=== PATIENT | male | born 1945 | race Hispanic/Latino ===

== ENCOUNTER 2016-10-27 18:49 | Inpatient (IN) | payer MEDICARE, OTHER ==
[2016-10-27 19:45] LABS: ADD MANUAL DIFF? NO
[2016-10-27 19:51] LABS: BASO # 0.02 K/mm3 (0.0-2.0); BASO % 0.3 % (0.0-3.0); EOS # 0.1 (0.0-0.7); EOS % 0.9 % (1.5-5.0); GRAN # 4.37 (1.4-6.5); HEMATOCRIT 42.4 % (42.0-52.0); LYMPH # 1.6 (1.2-3.4); LYMPH % 24.5 % (22.0-35.0); MEAN CELL VOLUME 95.1 fL (80.0-105.0); MEAN CORPUSCULAR HGB CONC 34.7 g/dl (31.0-37.0); MEAN PLATELET VOLUME 10.4 fl (7.0-11.0); MONO # 0.6 (0.1-0.6); MONO % 8.3 % (1.0-6.0); PLATELET COUNT 249 10^3/uL (120.0-450.0); RED CELL DISTRIBUTION WIDTH 13.2 % (11.5-14.5); URINE BILIRUBIN NEGATIVE (NEGATIVE); URINE BLOOD SMALL (NEGATIVE); URINE GLUCOSE (UA) NEGATIVE (NEGATIVE); URINE KETONE NEGATIVE (NEGATIVE); URINE LEUKOCYTE ESTERASE NEGATIVE Leu/uL (NEGATIVE); URINE PROTEIN TRACE mg/dL (<30 mg/dL); URINE UROBILINOGEN 0.2 E.U./dL (<1 E.U./dL); WHITE BLOOD COUNT 6.6 10^3/ul (4.5-11.0)
[2016-10-27 19:56] LABS: URINE APPEARANCE SL CLOUDY (CLEAR); URINE COLOR YELLOW (YELLOW)
[2016-10-27 20:04] LABS: ALB/GLOB RATIO 1.2 (1.1-1.8); ALKALINE PHOSPHATASE 71 U/L (38-133); ALT/SGPT 30 U/L (7-56); AST/SGOT 38 U/L (15-59); BILIRUBIN,TOTAL 0.6 mg/dL (0.2-1.3); BLOOD UREA NITROGEN 12 mg/dL (7-21); CALCIUM 9.3 mg/dL (8.4-10.5); CARBON DIOXIDE 24 mmol/L (21-33); CHLORIDE 100 mmol/L (95-110); GFR AFRICAN-AMERICAN > 60; GLUCOSE,RANDOM 101 mg/dL (70-110); SODIUM 139 mmol/L (132-148); TOTAL PROTEIN 8.1 g/dL (5.8-8.3)
[2016-10-27 20:25] LABS: URINE BACTERIA RARE (NEG); URINE EPITHELIAL CELLS 0 - 2 /hpf (0-5); URINE WBC NEGATIVE /hpf (0-6)
--- NOTE | 2016-10-27 20:47 | ED PDOC ---
Arrival/HPI - General Chief Complaint: Alcohol Ingestion Time Seen by Provider: 10/27/16 19:14 Historian: Patient - History of Present Illness Narrative History of Present Illness (Text): 10/27/16 20:43 70yo male BIBA for alcohol intoxication and psych evaluation. Per triage note, pt's family member reports chronic alcohol consumption and expression of suicidal ideation since patient lost his job. In ED patient admits drinking 3bottles of beer. States he came to ED because he tripped and fell in front of his house. Denies hitting his head anywhere. Denies LOC. He denies SI/HI. States he have a job to go to tomorrow. Denies any other somatic complaint. Past Medical History - Provider Review Nursing Documentation Reviewed: Yes - Psychiatric Hx Substance Use: No Family/Social History - Physician Review Nursing Documentation Reviewed: Yes Family/Social History: Unknown Family HX Smoking Status: Never Smoked Hx Alcohol Use: Yes Hx Substance Use: No Allergies/Home Meds Allergies/Adverse Reactions: Allergies No Known Allergies Allergy (Verified 10/27/16 18:58) Home Medications: Home Meds Medication Instructions Recorded Confirmed No Known Home Med 08/07/16 10/27/16 Review of Systems - Physician Review All systems were reviewed & negative as marked: Yes - Review of Systems Systems not reviewed;Unavailable: Intoxicated Constitutional: Normal Eyes: Normal ENT: Normal Respiratory: Normal Cardiovascular: Normal Gastrointestinal: Normal Genitourinary Male: Normal Musculoskeletal: Normal Skin: Normal Neurological: Normal Endocrine: Normal Hemo/Lymphatic: Normal Psychiatric: Normal Physical Exam Vital Signs Reviewed: Yes Vital Signs Temp Pulse Resp BP Pulse Ox 10/28/16 00:37 98.2 F 95 H 20 141/80 98 10/27/16 21:27 98 F 90 20 132/80 100 10/27/16 19:16 98 F 95 H 20 129/88 100 Temperature: Afebrile Blood Pressure: Normal Pulse: Regular Respiratory Rate: Normal Appearance: Positive for: Well-Appearing, Non-Toxic, Comfortable, Other ( Alcohol breathe) Pain Distress: None Mental Status: Positive for: Alert and Oriented X 3, Confused - Systems Exam Head: Present: Atraumatic, Normocephalic Pupils: Present: PERRL Extroacular Muscles: Present: EOMI Conjunctiva: Present: Normal Mouth: Present: Moist Mucous Membranes Neck: Present: Normal Range of Motion Respiratory/Chest: Present: Clear to Auscultation, Good Air Exchange. No: Respiratory Distress, Accessory Muscle Use Cardiovascular: Present: Regular Rate and Rhythm, Normal S1, S2. No: Murmurs Abdomen: Present: Normal Bowel Sounds. No: Tenderness, Distention, Peritoneal Signs Back: Present: Normal Inspection Upper Extremity: Present: Normal Inspection. No: Cyanosis, Edema Lower Extremity: Present: Normal Inspection. No: Edema Neurological: Present: GCS=15, CN II-XII Intact, Speech Normal Skin: Present: Warm, Dry, Normal Color. No: Rashes Psychiatric: Present: Alert, Oriented x 3, Normal Insight, Normal Concentration Medical Decision Making ED Course and Treatment: 10/27/16 23:50 PT was bib EMS for stated history. He reports trauma in ED . He appear confused but answering questions. he is neurological intact in ED Lab was unremarkable. Alcohol level is [address] IMPRESSION: - Large area of edema in the right cerebral hemisphere, highly suspicious for vasogenic edema secondary to an underlying right intracranial mass or masses. There is a suspected large 6.3 cm mass in the right temporal lobe, and a possible additional mass in the right posterior frontal lobe (versus extension of the large right temporal mass). There is significant associated mass effect, including 9 mm midline shift to the left, right ventricular effacement , and right basilar cistern effacement. MRI of the brain with gadolinium is recommended for further evaluation. - No definite acute intracranial hemorrhage. - See above for remaining findings. Decadron was ordered Pt will be admitted Result and plan was DW the pt and he agreed. PES screener saw patient in ED, but patient could not be cleared for psych secondary to above CT finding. CAse was YOVANA Harper who saw pt in ED and accepted pt. case was also Amaury YEN Dr, Neurosurgeon. He recommended elevation of the bed head to 35degerre and continuation of Decadron. states he will see pt in the morning. Case was also YOVANA Randall and he saw pt in ED and accepted him to the ICU. - Lab Interpretations Lab Results: 10/27/16 19:29 10/27/16 19:29 Lab Results 10/27/16 19:29: WBC 6.6 D, RBC 4.46, Hgb 14.7, Hct 42.4, MCV 95.1, MCH 33.0, MCHC 34.7, RDW 13.2, Plt Count 249, MPV 10.4, Gran % 66.0, Lymph % (Auto) 24.5, [place] % (Auto) 8.3 H, Eos % (Auto) 0.9 L, Baso % (Auto) 0.3, Gran # 4.37, Lymph # 1.6, [place] # 0.6, Eos # 0.1, Baso # 0.02, Sodium 139, Potassium 4.0, Chloride 100, Carbon Dioxide 24, Anion Gap 19, BUN 12, Creatinine 0.8, Est GFR ( Amer) > 60, Est GFR (Non-Af Amer) > 60, Random Glucose 101, Calcium 9.3, Total Bilirubin 0.6, AST 38, ALT 30, Alkaline Phosphatase 71, Total Protein 8.1, Albumin 4.4, Globulin 3.7, Albumin/Globulin Ratio 1.2, Urine Color Yellow, Urine Appearance Sl cloudy, Urine pH 6.0, Ur Specific [place] 1.010, Urine Protein Trace H, Urine Glucose (UA) Negative, Urine Ketones Negative, Urine Blood Small H, Urine Nitrate Negative, Urine Bilirubin Negative, Urine Urobilinogen 0.2, Ur Leukocyte Esterase Negative, Urine RBC 2 - 5, Urine WBC Negative, Ur Epithelial Cells 0 - 2, Urine Bacteria Rare, Salicylates < 1 L, Urine Opiates Screen Negative, Urine Methadone Screen Negative, Acetaminophen < 10.0 L, Ur Barbiturates Screen Negative, Ur Phencyclidine Scrn Negative, Ur Amphetamines Screen Negative, U Benzodiazepines Scrn Negative, U Oth Cocaine Metabols Negative, U Cannabinoids Screen Negative, Alcohol, Quantitative 147 H - RAD Interpretation Radiology Orders: 10/27/16 19:15 CHEST PORTABLE [RAD] Stat 10/27/16 20:47 HEAD W/O CONTRAST [CT] Stat - Medication Orders Current Medication Orders: Dexamethasone (Decadron Inj) 6 mg IVP Q6H DIA Lorazepam (Ativan) 2 mg IVP Q2H PRN; Protocol PRN Reason: Symptoms of alcohol withdrawl Pantoprazole Sodium (Protonix Inj) 40 mg IVP DAILY DIA Discontinued Medications Chlordiazepoxide (Librium) 50 mg PO STAT STA PRN Reason: Protocol Stop: 10/28/16 00:03 Last Admin: 10/28/16 00:29 Dose: 50 MG Behavioural Document 10/28/16 00:29 R (Rec: 10/28/16 00:29 [place] [id number]) Maintenance Maintenance Dose No Nonmedicinal Nonmedicinal Interventions Activity Behavior Behavior for Medication: Anxiety Dexamethasone (Decadron Inj) 10 mg IM STAT STA Stop: 10/27/16 23:24 Last Admin: 10/28/16 00:27 Dose: 10 MG IM Administration Charges Document 10/28/16 00:27 R (Rec: 10/28/16 00:27 [place] [id number]) Injection Site MAR Injection Site Left Deltoid Charges for Administration # of IM Administrations 1 Multivitamins/Vitamin C 10 ml/Thiamine HCl 100 mg/ Folic Acid 1 mg/ Sodium Chloride 1,011.2 mls @ 1,000 mls/hr IV .Q1H1M ONE Stop: 10/28/16 00:50 Last Admin: 10/28/16 00:28 Dose: 1,000 MLS/HR eMAR Start Stop Document 10/28/16 00:28 RJR (Rec: 10/28/16 00:29 [place] [id number]) Intravenous Solution Start Date 10/28/16 Start Time 00:28 End Date 10/28/16 End time 01:28 Total Infusion Time 60 Lorazepam (Ativan) 2 mg IVP ONCE ONE PRN Reason: Protocol Stop: 10/27/16 23:51 Last Admin: 10/28/16 00:27 Dose: 2 MG Behavioural Document 10/28/16 00:27 RJR (Rec: 10/28/16 00:28 [place] [id number]) Maintenance Maintenance Dose No Nonmedicinal Nonmedicinal Interventions Activity Behavior Behavior for Medication: Anxiety IVP Administration Document 10/28/16 00:27 R (Rec: 10/28/16 00:28 [place] [id number]) Charges for Administration # of IVP Administrations 1 Disposition/Present on Arrival - Present on Arrival Any Indicators Present on Arrival: No History of DVT/PE: No History of Uncontrolled Diabetes: No Urinary Catheter: No History of Decub. Ulcer: No History Surgical Site Infection Following: None - Disposition Have Diagnosis and Disposition been Completed?: Yes Diagnosis: Brain mass, Alcohol abuse Disposition: HOSPITALIZED Disposition Time: 23:45 Patient Problems: Current Active Problems Problem Status Diagnosed Alcohol abuse Acute Brain mass Acute Condition: GUARDED
--- NOTE | 2016-10-27 22:33 | CT ---
EXAM: CT Head Without Intravenous Contrast. CLINICAL HISTORY: 70 years old, male; Injury or trauma; Fall; Initial encounter; Blunt trauma (contusions or hematomas); Consciousness not specified; Injury details: ETOH; Additional info: Head injury TECHNIQUE: Axial computed tomography images of the head/brain without intravenous contrast. This CT exam was performed using one or more of the following dose reduction techniques: automated exposure control, adjustment of the mA and/or kV according to patient size, and/or use of iterative reconstruction technique. EXAM DATE/TIME: 10/27/2016 8:47 PM COMPARISON: Prior head CT of 08/01/2016 FINDINGS: BRAIN: Large area of abnormal low density in the right cerebral hemisphere, highly suspicious for extensive edema. This involves the right temporal, posterior frontal, and parietal lobes, and has an appearance highly suggestive of vasogenic edema secondary to an underlying right-sided intracranial mass or masses. There is a suspected large mass in the right temporal lobe, image 26/series 2, measuring approximately 6.3 x 4.4 cm. There may be an additional mass (versus extension of the large right temporal mass) in the right posterior frontal lobe, image 36/series 2, measuring about 4.7 x 3.0 cm. There is significant associated intracranial mass effect. There is midline shift to the left of about 9 mm, at the level of the thalami, effacement of the basilar cisterns on the right, effacement and displacement of the right lateral ventricle, and diffuse sulcal effacement in the right cerebral hemisphere. No evidence of associated acute intracranial hemorrhage. No acute extra-axial fluid collections visualized. VENTRICLES: No evidence of significant hydrocephalus. BONES/JOINTS: No acute fractures or other acute bony abnormality noted. SOFT TISSUES: No acute abnormality of the visualized soft tissues is seen. SINUSES: Visualized paranasal sinuses appear clear. MASTOID AIR CELLS: Mastoid air cells appear clear. IMPRESSION: - Large area of edema in the right cerebral hemisphere, highly suspicious for vasogenic edema secondary to an underlying right intracranial mass or masses. There is a suspected large 6.3 cm mass in the right temporal lobe, and a possible additional mass in the right posterior frontal lobe (versus extension of the large right temporal mass). There is significant associated mass effect, including 9 mm midline shift to the left, right ventricular effacement, and right basilar cistern effacement. MRI of the brain with gadolinium is recommended for further evaluation. - No definite acute intracranial hemorrhage. - See above for remaining findings.
[2016-10-27] MEDS ORDERED: Multivitamin (MVI) 10 ML, Thiamine 100 MG, Folic Acid 1 MG in Sodium Chloride 0.9% 1,00... IV ONE (23:50)
--- NOTE | 2016-10-28 00:36 | CP.PCM.CON ---
<Honorio Pickering - Last Filed: 10/28/16 01:34> History of Present Illness - History of Present Illness History of Present Illness: ICU Consult - Honorio Hernándezgita PGY1 HPI: Patient is a 70yo male with past medical history of chronic ETOH abuse that presented via EMS s/p fall in his apartment building. Patient reported that he was out drinking prior to presentation (reportedly 3 beers) and upon arrival home had slipped and fell. He denied loss of consciousness or hitting his head. He reported that someone in the building had called the ambulance for him. Per ED staff, EMS had reported that he expressed suicidal ideation. On arrival to the ED, patient had a CT head without contrast done which revealed a large area of edema in the right cerebral hemisphere, suspected 6.3cm mass in the right temporal lobe, possible additional mass in the right posterior frontal lobe and significant mass effect with 9mm midline shift to the left. Patient denied chest pain, palpitations, SOB, abdominal pain, nausea, vomiting, focal weakness, numbness, tingling, visual changes, headaches, fever, chills, cough. 12point ROS as per HPI, otherwise negative PMHx: ETOH abuse PSHx: Denies prior surgeries Hospitalizations: Denies prior hospitalizations Family Hx: Father: Parkinson's Disease; Mother: Denies Allergies: NKDA Medications: Denies Social Hx: admits to frequent alcohol use, former smoker, denies illicit drug use Past Patient History - Past Social History Smoking Status: Never Smoked - CARDIAC Hx Cardiac Disorders: No Hx Hypertension: No - PULMONARY Hx Tuberculosis: No - NEUROLOGICAL HX Cerebrovascular Accident: No Hx Seizures: No - HEMATOLOGICAL/ONCOLOGICAL Hx Cancer: No Hx Human Immunodeficiency Virus (HIV): No - GENITOURINARY/GYNECOLOGICAL Hx Sexually Transmitted Disorders: No - PSYCHIATRIC Hx Substance Use: No - SURGICAL HISTORY Hx Surgeries: No Meds Allergies/Adverse Reactions: Allergies Allergy/AdvReac Type Severity Reaction Status Date / Time No Known Allergies Allergy Verified 10/27/16 18:58 - Medications Medications: Current Medications Multivitamins/Vitamin C 10 ml/Thiamine HCl 100 mg/ Folic Acid 1 mg/ Sodium Chloride 1,011.2 mls @ 1,000 mls/hr IV .Q1H1M ONE Stop: 10/28/16 00:50 Physical Exam - Constitutional Appears: No Acute Distress, Unkempt - Head Exam Head Exam: ATRAUMATIC, NORMAL INSPECTION, NORMOCEPHALIC - Eye Exam Eye Exam: EOMI, Normal appearance, PERRL. absent: Conjunctival injection, Nystagmus, Scleral icterus - ENT Exam ENT Exam: Mucous Membranes Moist - Neck Exam Neck exam: Positive for: Normal Inspection. Negative for: Lymphadenopathy, Tenderness, Thyromegaly - Respiratory Exam Respiratory Exam: Clear to Auscultation Bilateral. absent: Rales, Rhonchi, Wheezes - Cardiovascular Exam Cardiovascular Exam: RRR, +S1, +S2. absent: Diastolic murmur, Gallop, JVD, Rubs , Systolic Murmur - GI/Abdominal Exam GI & Abdominal Exam: Normal Bowel Sounds, Soft. absent: Distended, Guarding, Rebound, Rigid, Tenderness - Neurological Exam Neurological exam: Alert, CN II-XII Intact, Oriented x3, Reflexes Normal Additional comments: motor strength 5/5 in bilateral upper and lower extremities CNII-XII intact EOMI, PERRLA - Psychiatric Exam Psychiatric exam: Anxious Additional comments: denies suicidal and homicidal ideation - Skin Skin Exam: Dry, Intact, Normal Color, Warm Results - Vital Signs Recent Vital Signs: Last Vital Signs Temp 98 F 10/27/16 21:27 Pulse 90 10/27/16 21:27 Resp 20 10/27/16 21:27 BP 132/80 10/27/16 21:27 Pulse Ox 100 10/27/16 21:27 - Labs Result Diagrams: 10/27/16 19:29 10/27/16 19:29 Labs: Laboratory Results - last 24 hr 10/27/16 19:29 WBC 6.6 D RBC 4.46 Hgb 14.7 Hct 42.4 MCV 95.1 MCH 33.0 MCHC 34.7 RDW 13.2 Plt Count 249 MPV 10.4 Gran % 66.0 Lymph % (Auto) 24.5 [place] % (Auto) 8.3 H Eos % (Auto) 0.9 L Baso % (Auto) 0.3 Gran # 4.37 Lymph # 1.6 [place] # 0.6 Eos # 0.1 Baso # 0.02 Sodium 139 Potassium 4.0 Chloride 100 Carbon Dioxide 24 Anion Gap 19 BUN 12 Creatinine 0.8 Est GFR ( Amer) > 60 Est GFR (Non-Af Amer) > 60 Random Glucose 101 Calcium 9.3 Total Bilirubin 0.6 AST 38 ALT 30 Alkaline Phosphatase 71 Total Protein 8.1 Albumin 4.4 Globulin 3.7 Albumin/Globulin Ratio 1.2 Urine Color Yellow Urine Appearance Sl cloudy Urine pH 6.0 Ur Specific [place] 1.010 Urine Protein Trace H Urine Glucose (UA) Negative Urine Ketones Negative Urine Blood Small H Urine Nitrate Negative Urine Bilirubin Negative Urine Urobilinogen 0.2 Ur Leukocyte Esterase Negative Urine RBC 2 - 5 Urine WBC Negative Ur Epithelial Cells 0 - 2 Urine Bacteria Rare Salicylates < 1 L Urine Opiates Screen Negative Urine Methadone Screen Negative Acetaminophen < 10.0 L Ur Barbiturates Screen Negative Ur Phencyclidine Scrn Negative Ur Amphetamines Screen Negative U Benzodiazepines Scrn Negative U Oth Cocaine Metabols Negative U Cannabinoids Screen Negative Alcohol, Quantitative 147 H Assessment & Plan - Assessment and Plan (Free Text) Assessment: 70yo male with history of chronic alcohol abuse presents s/p slip and fall at home. CT head revealed large 6.8cm mass in right temporal lobe, extensive edema in right cerebral hemisphere and 9mm midline shift to the left Plan: Neuro: -Alert and oriented x3; no apparent deficits -CT Head revealed large area of edema in the right cerebral hemisphere, 6.3cm mass in the right temporal lobe, possible additional mass in the right posterior frontal lobe and significant mass effect with 9mm midline shift to the left -Neurochecks q2h -WA protocol for alcohol withdrawal -1:1 for report of suicidal ideation -Ativan 2mg q2h PRN -Decadron 6mg q6h -Neurosurgery consulted - Dr. Vizcarra; no acute interventions at this time, will see patient in the morning -Neurology consulted - Dr. Cortés Cardio: -Maintain MAP > 65 -EKG revealed no acute ST-T wave abnormalities Pulm: -Maintain SpO2 > 90 -O2 sat > 90% on room air GI: -NPO -Protonix for GI prophylaxis Renal: -Monitor I's and O's -Daily weight -Monitor and replete electrolytes as needed -Continue with banana bag at 100cc/hr Endo: -TSH pending -Maintain euglycemia with BG between 140-180 Heme: -DVT prophylaxis with SCD's Patient seen and case discussed with attending, Dr. Randall - Date & Time Date: 10/28/16 Time: 01:19 <Calvin Randall Q - Last Filed: 10/28/16 06:02> Meds - Medications Medications: Current Medications Dexamethasone (Decadron Inj) 6 mg IVP Q6H DIA Last Admin: 10/28/16 05:47 Dose: 6 mg Lorazepam (Ativan) 2 mg IVP Q2H PRN; Protocol PRN Reason: Symptoms of alcohol withdrawl Pantoprazole Sodium (Protonix Inj) 40 mg IVP DAILY DIA Results - Vital Signs Recent Vital Signs: Last Vital Signs Temp 99 F 10/28/16 02:23 Pulse 113 H 10/28/16 05:00 Resp 19 10/28/16 04:15 BP 153/72 H 10/28/16 04:00 Pulse Ox 88 L 10/28/16 02:16 - Labs Result Diagrams: 10/27/16 19:29 10/27/16 19:29 Labs: Laboratory Results - last 24 hr 10/28/16 01:13 PT 11.1 INR 1.03 APTT 27.3 Attending/Attestation - Attestation I have personally seen and examined this patient.: Yes I have fully participated in the care of the patient.: Yes I have reviewed all pertinent clinical information: Yes Notes (Text): 10/28/16 05:59 I agree with the above mentioned note by Dr. Pickering with the following additions/exceptions: 70 y/o male with a PMHx Etoh abuse was BIBEMS after a slip and fall described as a mechanical fall without LOC. He was confused and apparently as per the medical records, reportedly had some suicidal ideation due to loss of a job. Patient admits to daily drinking as well; during his workup in the ED was found to have a large right cerebral mass (which in all likelihood may not be acute, more likely subacute to chronic due to a CT of the head in August of this year which reported a possible mass) with significant cerebral edema and most concerning a 9mm midline shift. I discussed the case with QUAN August who stated she discussed the case with Neurosurgery (Dr. Rebolledo) who recommended IV Decadron to help decrease the swelling. The patient was admitted to the ICU overnight for frequent neurochecks and monitoring.
[2016-10-28 01:33] LABS: INR 1.03 (0.93-1.08); PARTIAL THROMBOPLASTIN TIME 27.3 Seconds (23.7-30.8)
[2016-10-28 05:38] VITALS: BMI 27.3
[2016-10-28] MEDS: Dexamethasone 4 mg/1 ml IVP SCH ×4 (05:47→23:16)
[2016-10-28 06:08] LABS: PHOSPHOROUS 3.1 mg/dL (2.5-4.5)
--- NOTE | 2016-10-28 07:28 | CP.CCUPN ---
<Veronica Baer - Last Filed: 10/28/16 10:26> CCU Subjective - Physician Review Events Since Last Encounter (Free Text): 10/28/16 08:26 Patient seen and examined bedside. No acute events overnight. Patient denies any CP, SOB, dizziness, headaches prior to falling yesterday. Denies any current CP, SOB, abd pain, n/v/d/c, fevers, chills, rashes, double vision, vision changes, headaches, dizziness. 12-point ROS is reviewed and is negative. Patient denies any suicidal or homicidal ideation. Critical Care Time Spent (in minutes): 40 CCU Objective - Vital Signs / Intake & Output Vital Signs (Last 4 hours): Vital Signs Pulse Resp BP 10/28/16 06:00 104 H 25 H 169/92 H 10/28/16 05:34 103 H 18 166/89 H 10/28/16 05:15 83 19 10/28/16 05:00 113 H 10/28/16 04:15 19 10/28/16 04:00 67 19 153/72 H Intake and Output (Last 8hrs): Intake & Output 10/27/16 10/28/16 10/28/16 22:59 06:59 14:59 Output Total 350 Balance -350 Weight 179 lb 8 oz Output: Urine 350 Urine, Voided 350 - Physical Exam Head: Positive for: Atraumatic, Normocephalic Pupils: Positive for: PERRL Extroacular Muscles: Positive for: EOMI Conjunctiva: Positive for: Normal Mouth: Positive for: Moist Mucous Membranes Neck: Positive for: Normal Range of Motion Respiratory/Chest: Positive for: Clear to Auscultation, Good Air Exchange. Negative for: Respiratory Distress, Accessory Muscle Use Cardiovascular: Positive for: Regular Rate and Rhythm, Normal S1, S2. Negative for: Murmurs Abdomen: Positive for: Normal Bowel Sounds. Negative for: Tenderness, Distention, Peritoneal Signs Back: Positive for: Normal Inspection Upper Extremity: Positive for: Normal Inspection. Negative for: Cyanosis, Edema Lower Extremity: Positive for: Normal Inspection. Negative for: Edema Neurological: Positive for: GCS=15, CN II-XII Intact, Speech Normal Skin: Positive for: Warm, Dry, Normal Color. Negative for: Rashes Psychiatric: Positive for: Alert, Oriented x 3, Normal Insight, Normal Concentration - Medications Active Medications: Active Medications Generic Name Dose Route Start Last Admin Trade Name Freq PRN Reason Stop Dose Admin Dexamethasone 6 mg 10/28/16 05:00 10/28/16 05:47 Decadron Inj IVP 6 mg Q6H DIA Administration Lorazepam 2 mg 10/28/16 00:47 Ativan IVP Q2H PRN Symptoms of alcohol withdrawl Protocol Pantoprazole Sodium 40 mg 10/28/16 10:00 Protonix Inj IVP DAILY DIA - Patient Studies Lab Studies: Lab Studies 10/28/16 10/28/16 Range/Units 05:30 01:13 PT 11.1 (9.9-11.8) Seconds INR 1.03 (0.93-1.08) APTT 27.3 (23.7-30.8) Seconds Phosphorus 3.1 (2.5-4.5) mg/dL Magnesium 2.0 (1.7-2.2) mg/dL Laboratory Results - last 24 hr 10/28/16 10/28/16 01:13 05:30 PT 11.1 INR 1.03 APTT 27.3 Phosphorus 3.1 Magnesium 2.0 Review of Systems - Constitutional Constitutional: absent: Fever, Chills, Sweats, Weakness - EENT Eyes: absent: Blurred Vision, Change in Vision, Diplopia, Loss of Peripheral Vision, Sees Flashes Ears: absent: Disequilibrium, Dizziness - Cardiovascular Cardiovascular: absent: Chest Pain, Claudication, Diaphoresis, Dyspnea, Dyspnea on Exertion, Lightheadedness, Paroxysmal Nocturnal Dyspnea, Pedal Edema - Respiratory Respiratory: absent: Cough, Dyspnea, Dyspnea on Exertion, Pain on Inspiration - Gastrointestinal Gastrointestinal: absent: Abdominal Pain, Change in Bowel Habits, Coffee Ground Emesis, Constipation, Diarrhea, Heartburn, Hematemesis, Hematochezia, Nausea, Vomiting - Genitourinary Genitourinary: absent: Dysuria - Musculoskeletal Musculoskeletal: absent: Abnormal Gait, Joint Swelling, Myalgias, Numbness, Stiffness, Tingling - Integumentary Integumentary: absent: New Lesions, Rash - Neurological Neurological: absent: Disequilibrium, Focal Weakness, Headaches, Syncope - Psychiatric Psychiatric: absent: Hallucinations, Homicidal Ideation, Suicidal Ideation - Endocrine Endocrine: absent: Palpitations Critical Care Progress Note - Ventilator Checklist PUD Prophalyxis: Yes DVT Prophylaxis: Yes - Prophylaxis GI Prophylaxis GI: PPI - Prophylaxis DVT Prophylaxis DVT: Heparin SQ - Nutrition Nutrition: Nutrition Category Date Time Status NPO Diet [DIET] Diets 10/28/16 Breakfast Ordered Assessment/Plan - Assessment and Plan (Free Text) Assessment: 70yo M with h/o chronic alcohol abuse admitted to ICU s/p mechanical fall found to have R cerebral hemispheric mass with significant surrounding edema and 9mm midline shift to the left Plan: Neuro: AAOx3, NAD CT head shows large area of edema in R cerebral hemisphere, 6.3cm x 4.4cm mass R temporal lobe and possible additional 4.1cm x 3.0cm R posterior mass (vs extension of the temporal mass). Significant mass effect. 9mm midline shift to the left, R ventricular effacement, R basilar cistern effacement. No ICH Decardon 6mg IV Q6hr Keppra 500mg IV Q12hr for seizure ppx MRI brain with contrast pending h/o chronic EtOH abuse. CIWA protocol. Seizure precautions. Ativan PRN. Folic acid, Thiamine as per primary team Maintain normothermia CV: Occasionally hypertensive SBP 160-170s. Continue to monitor Hydralazine 5mg IV Q6hr PRN SBP>150 Pulm: No acute issues. Patient comfortable on Room Air, saturating in high 90s- 100% GI: GI ppx. NPO pending neurosurgery recs re: surgical intervention. NS @100cc/ hr Renal: No acute issues. Continue monitoring renal function Endo: No issues. Maintain euglycemia 140-180 ID: Afebrile. No leukocytosis. No signs of infection. Heme/Onc: Possible small nodule seen on CXR in R midlung Obtain CT Chest/Abdomen/Pelvis with PO and IV contrast to rule out primary source of brain mass DVT/GI ppx: SQH, Protonix, NPO, IVF - Date & Time Date: 10/28/16 Time: 10:44 <Edmar Porter - Last Filed: 10/28/16 15:49> CCU Objective - Vital Signs / Intake & Output Vital Signs (Last 4 hours): Vital Signs Temp Pulse Resp BP Pulse Ox 10/28/16 14:00 79 162 H 97 10/28/16 13:11 79 27 H 149/72 100 10/28/16 13:00 97.4 F L 87 97 10/28/16 12:09 106 H 10/28/16 12:05 105 H 23 172/91 H 96 10/28/16 12:04 103 H 27 H 185/88 H 97 10/28/16 12:01 105 H 24 10/28/16 12:00 101 H 24 179/136 H 97 10/28/16 11:53 86 Intake and Output (Last 8hrs): Intake & Output 10/28/16 10/28/16 10/28/16 06:59 14:59 22:59 Output Total 350 Balance -350 Weight 179 lb 8 oz Output: Urine 350 Urine, Voided 350 - Medications Active Medications: Active Medications Generic Name Dose Route Start Last Admin Trade Name Freq PRN Reason Stop Dose Admin Acetylcysteine 4 ml 10/28/16 11:00 10/28/16 13:06 Acetylcysteine 20% IH 4 ml [id number] DIA Administration Dexamethasone 6 mg 10/28/16 05:00 10/28/16 10:52 Decadron Inj IVP 6 mg Q6H DIA Administration Folic Acid 1 mg 10/28/16 10:00 10/28/16 10:44 Folic Acid PO 1 mg DAILY DIA Administration Heparin Sodium (Porcine) 5,000 units 10/28/16 10:00 10/28/16 10:45 Heparin SC 5,000 units Q12 DIA Administration Protocol Levetiracetam 100 mls @ 400 mls/hr 10/28/16 10:00 10/28/16 10:44 Keppra 500mg Ivpb IV 400 mls/hr Q12 DIA Administration Folic Acid 1 mg/ Thiamine HCl 1,011.2 mls @ 100 mls/hr 10/28/16 09:30 10/28/16 12:16 100 mg/ Multivitamins/Vitamin IV 100 mls/hr C 10 ml/ Dextrose .[id number] DIA Administration Levalbuterol HCl 0.63 mg 10/28/16 11:00 10/28/16 13:06 Xopenex IH 0.63 mg [id number] DIA Administration Lorazepam 2 mg 10/28/16 00:47 Ativan IVP Q2H PRN Symptoms of alcohol withdrawl Protocol Metoprolol Tartrate 25 mg 10/28/16 10:00 10/28/16 10:44 Lopressor PO 25 mg BID DIA Administration Pantoprazole Sodium 40 mg 10/28/16 10:00 10/28/16 10:44 Protonix Inj IVP 40 mg DAILY DIA Administration Thiamine HCl 100 mg 10/28/16 10:00 10/28/16 10:47 Vitamin B1 Inj IV 10/30/16 10:01 100 mg DAILY DIA Administration - Patient Studies Lab Studies: Lab Studies 10/28/16 10/28/16 10/28/16 Range/Units 11:20 06:00 05:30 PT (9.9-11.8) Seconds INR (0.93-1.08) APTT (23.7-30.8) Seconds Phosphorus 3.1 (2.5-4.5) mg/dL Magnesium 2.0 (1.7-2.2) mg/dL Total Bilirubin 0.8 (0.2-1.3) mg/dL Direct Bilirubin 0.5 H (0.0-0.4) mg/dL AST 44 (15-59) U/L ALT 34 (7-56) U/L Alkaline Phosphatase 76 (38-133) U/L Total Protein 7.4 (5.8-8.3) g/dL Albumin 4.0 (3.0-4.8) g/dL Globulin 3.4 gm/dL Albumin/Globulin Ratio 1.2 (1.1-1.8) Triglycerides 50 (35-160) mg/dL Cholesterol 172 (130-200) mg/dL LDL Cholesterol Direct 81 (0-129) mg/dL HDL Cholesterol 80 H (29-60) mg/dL Prostate Specific Ag 1.3 (0.00-2.5) ng/mL Free T4 0.99 (0.78-2.19) ng/dL Thyroxine (T4) 5.2 L (5.5-11.0) ug/dL 10/28/16 Range/Units 01:13 PT 11.1 (9.9-11.8) Seconds INR 1.03 (0.93-1.08) APTT 27.3 (23.7-30.8) Seconds Phosphorus (2.5-4.5) mg/dL Magnesium (1.7-2.2) mg/dL Total Bilirubin (0.2-1.3) mg/dL Direct Bilirubin (0.0-0.4) mg/dL AST (15-59) U/L ALT (7-56) U/L Alkaline Phosphatase (38-133) U/L Total Protein (5.8-8.3) g/dL Albumin (3.0-4.8) g/dL Globulin gm/dL Albumin/Globulin Ratio (1.1-1.8) Triglycerides (35-160) mg/dL Cholesterol (130-200) mg/dL LDL Cholesterol Direct (0-129) mg/dL HDL Cholesterol (29-60) mg/dL Prostate Specific Ag (0.00-2.5) ng/mL Free T4 (0.78-2.19) ng/dL Thyroxine (T4) (5.5-11.0) ug/dL Laboratory Results - last 24 hr 10/28/16 10/28/16 10/28/16 01:13 05:30 06:00 PT 11.1 INR 1.03 APTT 27.3 Phosphorus 3.1 Magnesium 2.0 Total Bilirubin 0.8 Direct Bilirubin 0.5 H AST 44 ALT 34 Alkaline Phosphatase 76 Total Protein 7.4 Albumin 4.0 Globulin 3.4 Albumin/Globulin Ratio 1.2 Triglycerides 50 Cholesterol 172 LDL Cholesterol Direct 81 HDL Cholesterol 80 H Prostate Specific Ag Free T4 Thyroxine (T4) 10/28/16 11:20 PT INR APTT Phosphorus Magnesium Total Bilirubin Direct Bilirubin AST ALT Alkaline Phosphatase Total Protein Albumin Globulin Albumin/Globulin Ratio Triglycerides Cholesterol LDL Cholesterol Direct HDL Cholesterol Prostate Specific Ag 1.3 Free T4 0.99 Thyroxine (T4) 5.2 L Critical Care Progress Note - Nutrition Nutrition: Nutrition Category Date Time Status NPO Diet [DIET] Diets 10/28/16 Breakfast Ordered Regular Diet [DIET] Diets 10/28/16 Dinner Ordered Addendum Addendum: 10/28/16 15:39 patient was seen and examined and discussed at bedside shoulder to shoulder with Dr. Baer. her note reflects my exam, assessment and plan, except as below. Meds/Labs/ONE reviewed This is 70 yo male with brain mass and surroinding vasogenic edema, likely representing glioblastoma. Metastatic workup is in progress. RadOnc consult is appreciated, meursurgery consult is appreciated. Patient is in process to decide about the next step. 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 I would continue with steroids for vasogenic edema, but ok to downgrade to tele at present time. Agreed by neurosurgical service ccm time 40 min
--- NOTE | 2016-10-28 09:25 | RAD ---
HISTORY: admission COMPARISON: 08/01/2016 FINDINGS: LUNGS: Opacity at left base. This may represent pneumonia or atelectasis. Follow-up advised. Small nodule mid right lung unchanged. Small nodule also seen in upper left lung. Consider further evaluation with computed tomography. PLEURA: No significant pleural effusion identified, no pneumothorax apparent. CARDIOVASCULAR: Normal. OSSEOUS STRUCTURES: No significant abnormalities. VISUALIZED UPPER ABDOMEN: Normal. OTHER FINDINGS: None. IMPRESSION: Opacity at left base. Pneumonia versus atelectasis. Small nodule noted in each lung. Recommend correlation with noncontrast chest CT when clinically feasible.
[2016-10-28] MEDS ORDERED: Barium Sulfate Susp 2.1% w/v, 2.0% w/w 450 mL Bottle PO ONE (09:28)
[2016-10-28] MEDS ORDERED: Sodium Chloride 0.9% 1,000 ML IV SCH (09:30)
[2016-10-28 09:56] LABS: ALB/GLOB RATIO 1.2 (1.1-1.8); ALKALINE PHOSPHATASE 76 U/L (38-133); ALT/SGPT 34 U/L (7-56); AST/SGOT 44 U/L (15-59); BILIRUBIN,DIRECT 0.5 mg/dL (0.0-0.4); BILIRUBIN,TOTAL 0.8 mg/dL (0.2-1.3); CHOLESTEROL 172 mg/dL (130-200); TOTAL PROTEIN 7.4 g/dL (5.8-8.3)
[2016-10-28] MEDS ORDERED: Gadodiamide 287 MG/ML VIAL (15ML) IV ONE (09:57)
[2016-10-28] MEDS: levETIRAcetam 500mg IVPB 100 ML IV SCH ×2 (10:44→21:37)
[2016-10-28] MEDS: Thiamine 100 mg/ml Inj IV SCH (10:47)
--- NOTE | 2016-10-28 11:13 | CON ---
DATE: 10/28/2016 CHIEF COMPLAINT: Abnormal CAT scan showing a mass in the right temporal lobe. HISTORY OF PRESENT ILLNESS: A 70-year-old man with past medical history of chronic ETOH abuse presen canelo to the hospital after he had fallen in his apartment building. He was out drinking prior to pres entation. He said he drank a few beers. He is a daily drinker. He slipped and fell at home. He di d not lose consciousness or hit his head. Someone reported in the building and had called the ambula nce. In the EMS, the patient apparently had expressed some suicidal ideation. He came to the ER and had a CAT scan of the head which revealed a large area of edema in the right cerebral hemisphere, boswell spected 6.3 cm mass in the right temporal lobe with a possible additional questionable mass in the ri ght posterior frontal lobe. There is significant associated mass effect with a 9 mm midline shift to the left and right ventricular effacement and bibasilar cistern effacement. Currently, his alcohol blood level was 14. He is currently in the ICU being monitored. No seizure-like activity, but he is tremulous, likely from alcohol withdrawal. He will be going for an MRI of the brain. Neurosurgery consult has been placed. He is on Decadron for his vasogenic edema of 6 mg IV q. 6 and I have placed him on prophylactic Keppra 500 mg IV q. 12 given that the mass in the temporal for seizure prophylax is. PAST MEDICAL HISTORY: History of ETOH abuse, history of a right temporal mass seen on a CAT scan in 08/2016. PAST SURGICAL HISTORY: None. HOSPITALIZATIONS: Was seen in the ER in 08/2016 in [facility]. FAMILY HISTORY: Father had Parkinson's disease. Mother noncontributory. ALLERGIES: No known drug allergies. MEDICATIONS: Denies any medications at home. SOCIAL HISTORY: Admits to frequent alcohol use, former smoker. Denies any illicit drug abuse. REVIEW OF SYSTEMS: A 14-point review of systems is negative except the HPI. PHYSICAL EXAMINATION: VITAL SIGNS: Temperature of 97.9, pulse rate of 106, blood pressure of 121/71, respiratory rate of 2 0, oxygen saturation 98% via room air. GENERAL: The patient is sitting up in bed, tremulous, in no acute distress. HEENT: Atraumatic, normocephalic. PERRLA. Extraocular muscles intact. NECK: Supple, no JVD, no adenopathy noted. LUNGS: Clear to auscultation. No adventitious sounds. HEART: S1, S2, normal rate and rhythm. No murmurs, rubs, or gallops. ABDOMEN: Soft, nontender, nondistended. Bowel sounds are present. EXTREMITIES: No clubbing, no cyanosis. Peripheral pulses 2+ felt bilaterally. NEUROLOGIC: The patient is alert, oriented to person, place, month and year. Recall after 5 minutes is 1/3. Poor attention span, slowed thought process. He has a flat affect. He is tremulous lookin g. MOTOR: Moves all extremities equally. No pronator drift seen. Mild reduced finger tap on the left upper extremity. Otherwise, moves all extremities equally. Toes are upgoing bilaterally. SENSORY: Light touch, pinprick, proprioception, and vibrations intact. DTRs are 2+ throughout and 1 at the ankles. COORDINATION: [id number] is intact and also tremulous when the hands are stretched out likely fr om alcohol withdrawal. GAIT: Deferred for now. LABORATORY DATA: U-tox is positive for alcohol level of 147. Sodium is 139, potassium 4, chloride 1 00, carbon dioxide 24, BUN of 12, creatinine 0.8. Random glucose of 101. B12 is currently pending. ASSESSMENT AND PLAN: This is a 70-year-old man with a history of chronic alcohol abuse who had a sli p at his apartment building and fell at home without any loss of consciousness or hitting his head. He did during his EMS indicate suicidal ideation, but during my consultation, he does not mention magdy t at all. The patient's CT head reveals a large 6.8 cm mass in the right temporal lobe with extensiv e edema in the right cerebral hemisphere and a 9 mm midline shift to the left which the mass was also seen in 08/2016, but no workup was done as there was no shift at that time. At this time, we will re commend: 1. Neurosurgical evaluation and followup their protocol and management. 2. Keep bed elevated at 30 degrees. 3. Decadron 6 mg IV q. 6 hours for his underlying vasogenic edema. 4. We will place him on Keppra 500 mg IV q. 12 for seizure prophylaxis given that the mass is in the right temporal lobe which is prone to seizures. 5. Evaluate for possible Librium and CIWA protocol and thiamine, multivitamins and folic acid for al cohol withdrawal. 6. Get a psychiatric consult given that he had stated some questionable suicidal ideation on his ___ _ EMS. 7. Monitor his electrolytes and correct accordingly. Get a B12 level and continue with current pres ent medical management. [id number] with deep venous thrombosis prophylaxis, sequential compression de vices and gastrointestinal prophylaxis with Protonix. Once again, thank you for this consult. Antonio Cortés MD cc: [id number] TT: 10/28/2016 11:12:37 Confirmation # [id number] Dictation # [id number] tn
[2016-10-28 11:58] LABS: FREE T4 0.99 ng/dL (0.78-2.19); T4 5.2 ug/dL (5.5-11.0)
[2016-10-28] MEDS: Levalbuterol 0.63 MG/3 ML Inhal Soln UD IH SCH ×3 (12:01→20:47)
[2016-10-28] MEDS: Acetylcysteine 20% Inhal Soln (4ml) IH SCH ×3 (12:01→20:47)
--- NOTE | 2016-10-28 12:04 | HP ---
HISTORY OF PRESENT ILLNESS: The patient was brought to the Emergency Room in the evening hours today by EMS [facility] ambulance. The patient was found to be intoxicated with alcohol. According to the EMS, the patient's family members stated that the patient has been drinking alcohol daily, lost job, has been experiencing suicidal ideation. The patient was seen in bed 8. The patient has heavy alcohol odor. The patient is alert, awake, responsive, confused, wants to sign out AMA, wants to leave the hospital, does not wish to stay in the hospital. The patient is alert, awake, responsive. CODE STATUS: Full code. LIVING WILL AND ADVANCED DIRECTIVE: None. ALLERGIES: None. HEIGHT: 5 feet 8 inches. BMI is 27. HOME MEDICATIONS: None. SOCIAL HISTORY: Positive for smoking. Positive for alcohol. Denies drug use Positive for alcoholism. FAMILY HISTORY: Not available. OCCUPATIONAL HISTORY: Not available. PAST MEDICAL AND SURGICAL HISTORY: History of alcohol dependence, history of gait dysfunction, history of nicotine dependence. The patient's past medical history is also significant for a recent ER visit in 08/2016 upon which in August, the patient signed out against medical advice. History of an abnormal CAT scan of the head in 08/2016 which shows a right temporal lobe mass effect on 08/01/2016, but at that time, patient signed out against medical advice. The patient was found to be alcohol intoxicated. The patient's past medical history is also significant for a right middle lobe 3 mm nodule with interstitial fibrotic changes of the lung. The patient's past medical history is also significant for a right middle lobe nodule, history of sinus tachycardia , history of noncompliance and poor compliance. The patient's past medical history is significant for history of alcohol and nicotine dependence and addiction, history of deconditioning. The patient was seen in bed #8 in the Emergency Room. PHYSICAL EXAMINATION: VITAL SIGNS: T-max 98. Pulse rate was 95-90-78. Blood pressure 129/88, 132/80 , respiration was 20. O2 sat was 100%. GENERAL: The patient is seen lying in the stretcher. The patient is awake, alert, responsive. HEAD: Normocephalic, atraumatic. HEENT: Shows pink conjunctivae, dry oral mucosa. NECK: No neck rigidity. CHEST: Symmetrical. LUNGS: Show positive rhonchi upper lung herman and bilateral posterior lung herman. CARDIOVASCULAR: Shows S1, S2, regular rhythm. ABDOMEN: Soft, positive bowel sounds. GENITALIA: Male. RECTAL: Deferred. EXTREMITIES: Shows no pitting edema, no calf tenderness, no Homans' sign. NEUROLOGIC: The patient is alert, awake, responsive, is able to move upper and lower extremity without assistance. Gait examination is not tested. VASCULAR: Palpable pulses. Cranial nerves II-XII limited. Neurologically, the patient is alert, awake, responsive, states he is in [facility]. He is able to say his name. The patient is able to move upper and lower extremities without assistance. Motor strength in upper and lower extremities appears to be 5/5. Coordination examination not tested. Gait examination not tested. PSYCHIATRIC: The patient has history of suicidal ideation. DIAGNOSTICS: CBC: WBC 6.6, hemoglobin/hematocrit 14.7 and 42.2, platelets 249. PT, PTT 11.1 and 27.3. Sodium 139, potassium 4.0, chloride 100, CO2 of 24 , anion gap 19, BUN 12, creatinine 0.8, GFR greater than 60, glucose 101, calcium 9.3, phosphorus 3.1, magnesium 2.0. LFTs are normal. Urine pH 6.0, specific gravity 1.010, trace protein, small blood, bacteria rare. Urine drug screen negative for salicylates, negative for acetaminophen, positive for alcohol level of 147. Chest x-ray was reviewed which shows left lower lobe opacity, questionable pneumonia, atelectasis, right middle lobe nodule, left upper lobe nodule. CT head was reviewed which shows right cerebral hemisphere abnormal low density large area with extensive edema involving the right temporal, posterior frontal and parietal lobes suggestive of vasogenic edema secondary to underlying right- sided intracranial mass or masses with a suspected large mass in the right temporal lobe with mass effect and effacement and displacement of the right lateral ventricle and diffuse sulcal effacement. EKG done in the Emergency Room shows sinus rhythm. The patient was seen and evaluated in the Emergency Room by the physician kennel assistant and Dr. Puri. The patient was evaluated initially by the PS worker. The patient was seen by the PS worker. The patient's case was discussed with Dr. Rebolledo, neurosurgeon. The patient was advised to be admitted to ICU. IMPRESSION: 1. Right cerebral hemisphere extensive vasogenic edema with involvement of the right temporal, posterior frontal and parietal lobe; vasogenic edema with right- sided intracranial mass with suspected large mass in the right temporal lobe with additional masses of the right temporal, right posterior frontal lobe with intracranial mass effect and midline shift to the left of 9 mm with effacement of the basilar cistern on the right, effacement and displacement of the right lateral ventricle and diffuse sulcal effacement in the right cerebral hemisphere. 2. Active alcohol intoxication. 3. Questionable encephalopathy with confusional state. 4. Questionable suicidal ideation. 5. Trace proteinuria and microscopic hematuria and trace bacteriuria. 6. Acute alcohol intoxication. 7. Questionable left lower lobe pneumonia, atelectasis with right middle lobe and left upper lobe nodule. 8. History of nicotine and alcohol dependence and addiction. 9. Alcohol dependence and addiction. 10. Gait dysfunction with history of fall. 11. Questionable encephalopathy, etiology undetermined with acute alcohol intoxication. PLAN: At this time, the patient was seen in the Emergency Room. The patient was also consulted by the ER physician with neurosurgery, Dr. Rebolledo. His recommendation to start IV Decadron. The patient is to be admitted to intensive care unit with neurosurgical consultation. The patient has been ordered serial labs. Thyroid panel, B12, folate, lipid panel, HIV have been ordered. The patient is consulted with neurosurgery, neurology and psychiatry. The patient is started on Xopenex and Mucomyst nebulizer treatment, Ativan 2 mg IV q. 2 p.r.n. The patient is started on banana bag. The patient is started on Decadron 6 mg IV q. 6, folic acid 1 mg daily, DVT prophylaxis with heparin 5000 subQ q. 12. Keppra 500 IV q. 12 has been ordered. The patient is started on Protonix 40 IV daily, thiamine 100 mg IV daily. The patient has been ordered an MRI of the brain after consulting with neurosurgery. In addition, CAT scan of the chest, abdomen and pelvis has been ordered for evaluation of the pulmonary nodule, pneumonia, atelectasis. The patient has been ordered a CAT scan of the chest, abdomen and pelvis for evaluation of possible metastatic disease. The patient is on 1:1. Alcohol withdrawal protocol has been ordered. Head of the bed 30 degrees. Neuro checks have been ordered. At present, patient is to be admitted to intensive care unit. The patient was seen in the Emergency Room. Time spent in the entire management and evaluation of the patient and reviewing the entire diagnostic data more than 1 hour 55 minutes. Dictated and electronically signed, not read. Flash Harper MD cc: [id number] TT: 10/28/2016 01:03:57 kathy ABDUL
[2016-10-28 12:11] LABS: PROSTATE SPECIFIC ANTIGEN 1.3 ng/mL (0.00-2.5)
[2016-10-28] MEDS: Folic Acid 1 MG, Thiamine 100 MG, Multivitamin (MVI) 10 ML in Dextrose 5% In Water 1,00... IV SCH ×2 (12:16→23:04)
--- NOTE | 2016-10-28 12:41 | MRI ---
PROCEDURE: MRI BRAIN WITH AND WITHOUT CONTRAST HISTORY: brain mass COMPARISON: Comparison is made to the previous CT of the head dated 08/01/2016 and 10/27/2016 TECHNIQUE: Multiplanar, multisequence MR images of the brain were obtained with and without intravenous contrast enhancement. FINDINGS: HEMORRHAGE: None DWI: No evidence of an acute or early subacute infarction. BRAIN PARENCHYMA: There is heterogeneous enhancing mass lesion at the medial portion of the right temporal lobe extending superiorly to the inferior aspect of the right parietal lobe. The mass lesion measures 7 centimeter in the largest AP diameter 4.6 centimeter in the transverse diameter and 5.5 centimeter in the longitudinal diameter. The mass is a slightly crossing the midline at the level of the posterior portion of corpus callosum. This mass has significantly increased in size since the previous CT of the head dated 08/01/2016 and highly suggestive of malignant neoplasm such as glioblastoma multiform GBM. There is a large vasogenic edema surrounding mass. The mass and the surrounding vasogenic edema resulting in mass effect on the right lateral ventricle which appears smaller than the right. There is approximately 11 millimeter [id number] midline shift. There is also partial effacement of the right basilar cistern raise the possibility of mild transtentorial in addition to subfalcine herniation. ENHANCEMENT: Heterogeneous enhancement to the above-mentioned right temporal lobe mass is noted. There is mild enhancement of the adjacent dural also noted along the right tentorium best seen on the coronal images. VENTRICLES: The right ventricle is compressed by the adjacent mass lesion. There is no evidence of hydrocephalus. CRANIUM: Unremarkable. ORBITS: Grossly unremarkable. PARANASAL SINUSES/MASTOIDS: Mild mucosal thickening seen in the left frontal and maxillary sinuses. VASCULAR SYSTEM: Skull base flow voids intact. OTHER FINDINGS: None . IMPRESSION: Heterogeneously enhancing mass lesion at the right temporal lobe measures 7 x 4.6 x 5.5 centimeter crossing the midline at the level of the posterior corpus callosum and surrounding with large vasogenic edema. Findings consistent with malignant neoplasm such as glioblastoma multiform (GBM). Moderate to large mass effect on the lateral ventricle and approximately 11 millimeter right to left midline shift with possible subfalcine herniation. Partial effacement of the right basilar cistern.
--- NOTE | 2016-10-28 12:46 | CON ---
DATE: 10/28/2016 HISTORY OF PRESENT ILLNESS: Shortly, the patient is a 70-year-old male with not known hist ory of mental illness. The patient has history of alcohol use disorder. The patient was brought in for alcohol intoxication and psych evaluation. The patient was found to have a mass in his brain, wa s admitted to ICU. Psych consult was called for evaluation of mood symptoms, and the patient express ed thoughts of harming himself in the Emergency Room, being under the influence of alcohol. Alcohol level at the time of admission was 174. The patient was seen and examined, discussed with ICU team, Dr. Porter and the resident. As per co llateral information, the patient does not have any agitation or aggression. The patient participate s in treatment plan. At the same time, the patient seems to be in denial for his brain mass, and exp ressed no interest to know about the diagnosis and treatment options. The patient was seen and examined. The patient presented to be alert and oriented in place, year, an d month. The patient thinks that today is the . Basically, it is the . The patient said pr ior to coming to the hospital, he had a fall because the elevator and floor level were not even. The patient said that he was not depressed. He was not expressing thoughts of killing himself or others . The patient said that he does not remember saying that he wanted to or he had plans to kill hi mself. At the moment of the interview, the patient adamantly denied being depressed, denied thoughts of kill ing himself or others. Denied intent or plan. The patient denied feeling anxious, denied hearing vo ices or seeing things, denied paranoid ideation. The patient does not present to be psychotic. The patient was minimizing his alcohol use. The patient said that he drinks on and off, maximum 3 beers a day. The patient said that he has no family. He has one sister who lives in [place], and he is no t getting along with her. The patient reported that he has a friend who is supportive, and she is pl anning to come and visit him today. PAST PSYCHIATRIC HISTORY: The patient denied history of mental illness. The patient denied history of being admitted to the psychiatric inpatient unit. The patient denied history of suicidal attempts . The patient denied family history of mental illness either. VITAL SIGNS: This typewriter assembler checked vital signs. Temperature 97.9. Pulse is 106, blood pressure 121/7 1, respirations 20. MEDICATIONS: Reviewed. The patient is on Decadron, multivitamins, thiamine, and folic acid. The pa jonnie is on heparin, Keppra, Ativan 2 mg IV push q. 2 hours as needed, Lopressor 25 mg twice a day, P rotonix, and vitamin B1. LABORATORY DATA: Reviewed. Hematology 6.6 yesterday WBC. Hemoglobin 14.7, hematocrit 42.4. Coagul ation was reviewed. Chemistry reviewed. AST and ALT within normal limits. Urinalysis showed protei n trace, blood small. Toxicology, as this typewriter assembler mentioned above. Alcohol level at the time of admi ssion in the Emergency Room was 147. This typewriter assembler reviewed reports. The patient had a head CT scan, which showed large area of edema in the right cerebral hemisphere, hi ghly suspicious for vasogenic edema. The patient also has large 6.3 cm mass in the right temporal lo be. The patient also has possible additional mass in the right posterior frontal lobe with a signifi cant associated mass effect including 9-mm midline shift to the left, and right ventricular effacemen t, and right basilar cistern effacement. There recommended MRI of the brain with gadolinium for furt her evaluation. MENTAL STATUS EXAMINATION: The patient presented to be alert, oriented in time, but off with the crystal e. The patient knows the month and year. Intermittent eye contact. The patient seems to be interes canelo to give a call to his friend more than talk to this typewriter assembler. Speech was fast, normal tone, qualit y, and quantity. Mood described, "I'm not depressed." Affect was constricted, but reactive. Though t process was coherent and goal directed. Thought content: The patient denied visual, auditory, or tactile hallucinations. Denied paranoid ideations. The patient does not present to be psychotic. T he patient denied thoughts of harming himself or others intent or plan. The patient was in good beha vioral control. IMPRESSION: The patient has alcohol use disorder. The patient adamantly denied thoughts of killing himself or others and does not remember saying such thing in the Emergency Room. Probably it was rel ated to the fact that the patient was intoxicated. The patient has multiple medical issues including brain mass, also history of alcohol use, history of falls. PLAN: Continue current management. From this typewriter assembler's perspective, the patient does not present to be suicidal or homicidal. Education about current diagnosis should be done by medical team. This wr iter would recommend to have social work evaluation and possibly appoint POA at present moment shawn gregory this typewriter assembler cannot exclude that mental status will be deteriorating, and the patient needs to make decisions about future neurosurgical intervention. From this typewriter assembler's perspective, the patient is no t agitated, not aggressive, does not have any behavioral issues. The patient also is not psychotic. The patient denied being depressed. No suicidal or homicidal ideations were elicited. The case was discussed with Dr. Porter and Dr. Harper. The patient would like his friend, Alecia, to be involved in his care. If the patient wants to appoint her as power of litigation attorney associate, legal document needs to be signed. Thank you very much for letting me participate in the care of your patient. I will sign off. Should you have any questions, give me a call back. Victoria Veronica MD cc: [id number] TT: 10/28/2016 11:07:16 Confirmation # [id number] Dictation # [id number] noah
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
[2016-10-28] MEDS ORDERED: Iohexol 350 MG/100 ML VIAL ONE (14:37)
--- NOTE | 2016-10-28 14:58 | CON ---
DATE: 10/28/2016 HISTORY OF PRESENT ILLNESS: This is a 70-year-old white gentleman brought to the Emergency Room last night by EMS, found to be intoxicated. I was told that he drank daily. He has had slow decline in his mental status, although he was fully neurologically intact with normal judgment. He became slove nly and did not take care of himself. He did have a CT scan on previous admission on 08/01/2016 demo nstrating a right temporal lobe mass. He did not treat it; he chose to ignore it. There is also a 3 mm nodule on a previous study of his lung, but on this admission a CT scan was done followed by an M RI showing a very large mass in the right frontotemporal parietal region going deep toward the basal cisterns consistent with a glioblastoma. His history is positive for alcohol, positive for cigarette smoke. Chart was reviewed for the rest of his medical history. PHYSICAL EXAMINATION: Currently, he is awake, alert, oriented. Psychiatry saw him and found that he was mentally competent to make a decision. His pupils are equal. His EOMs are full. His strength is good. He has some tremor in the left arm more than the right arm, possibly a slight drift on the left side, but no gross motor weakness, no sensory weakness. Reflexes are all 2/4. I explained to him and his friend (he has no family members and no next of kin and no one with power of prosecuting attorney) that this is most likely a glioblastoma, and with aggressive treatment he will only have possibly 6-9 months, and with no treatment probably on the order of 1-2 months, possibly slightly lo nger. I have recommended a craniotomy with debulking of tumor followed by radiation and chemotherapy . At the current time, he does not wish to have surgery. I explained to them that we will be back a nd discuss this again, but if he does not wish to have this we obviously can do nothing further. If he does wish to have surgery, we will schedule it for Tuesday. He is on steroids. He should have a m etastatic workup given the lung nodule, but this tumor clearly is most consistent with a glioblastoma . We will follow up tomorrow. Gutierrez Vizcarra MD cc: [id number] TT: 10/28/2016 14:58:00 Confirmation # [id number] Dictation # [id number] mn
--- NOTE | 2016-10-28 15:40 | CT ---
PROCEDURE: CT Chest, Abdomen and Pelvis with intravenous contrast HISTORY: r/o CA COMPARISON: None. TECHNIQUE: IV dose administered: 100 cc of Omni 350 Radiation dose: Total exam DLP = 1147 mGy-cm. FINDINGS: CT CHEST WITH CONTRAST: LUNGS: There is consolidation in the left lower lobe MEDIASTINUM: Unremarkable. Normal caliber aorta and pulmonary arterial trunk. No aortic dissection. Normal size heart. LYMPH NODES: Unremarkable. PLEURA: Unremarkable. No pneumothorax. No pleural fluid. BONES: Unremarkable. OTHER FINDINGS: None. CT ABDOMEN AND PELVIS: LIVER: Unremarkable. No gross lesion or ductal dilatation. GALLBLADDER AND BILE DUCTS: Unremarkable. PANCREAS: Unremarkable. No gross lesion or ductal dilatation. SPLEEN: Unremarkable. ADRENALS: Unremarkable. No mass. KIDNEYS AND URETERS: Unremarkable. No hydronephrosis. No solid mass. VASCULATURE: Unremarkable. No aortic aneurysm. BOWEL: Unremarkable. No obstruction. No gross mural thickening. APPENDIX: Normal appendix. PERITONEUM: Unremarkable. No free fluid. No free air. LYMPH NODES: Unremarkable. No enlarged lymph nodes. BLADDER: Unremarkable. REPRODUCTIVE: Unremarkable. BONES: No acute fracture. OTHER FINDINGS: None. IMPRESSION: Left lower lobe consolidation
[2016-10-28 17:35] LABS: FOLATE > 20.0 ng/mL
--- NOTE | 2016-10-28 18:31 | CARD ---
APPROVED REPORT EKG Measurement Heart [id number] <Conclusion> Normal sinus rhythm Nonspecific ST abnormality Abnormal ECG
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
--- NOTE | 2016-10-29 01:12 | PN ---
DATE: 10/28/2016 The patient is seen in ICU bed 6. The patient is lying in the bed. The patient is alert, awake, responsive. The patient is confused, agitated, restless. PHYSICAL EXAMINATION: VITAL SIGNS: T-max 98. Telemetry shows sinus rhythm. Blood pressure in the last 24 hours ranging from 175/73 to 154/84, 180/62 to 143/62, respirations 21 to 26, O2 sat 93% to 98%. Intake output noted. HEAD: Normocephalic, atraumatic. HEENT: Shows pink conjunctivae. Dry oral mucosa. NECK: No neck rigidity. CHEST: Kyphosis. LUNGS: Shows positive rhonchi upper and lower lung herman, questionable creps bilaterally. CARDIOVASCULAR: Shows S1, S2, regular rhythm. ABDOMEN: Soft, positive bowel sounds. GENITALIA: Male. RECTAL: Deferred. EXTREMITIES: Shows no pitting edema, no calf tenderness, no Homans sign. NEUROLOGIC: The patient is alert, awake, responsive, is able to move upper and lower extremities without assistance. GAIT: Deferred. MUSCULOSKELETAL: Shows a body mass index of 27.4. Cranial nerves II-XII limited. VASCULAR: Palpable pulses. PSYCHIATRIC: As per evaluation by the psychiatrist. DIAGNOSTICS: LFTs are normal. Cholesterol is 172. LDL 81, HDL 80. PSA is normal. B12, folate is 332 and greater than 20 respectively. TSH is pending. RPR is nonreactive. The patient's MRI, CAT scan of the abdomen and pelvis and chest reviewed. The CAT scan of the abdomen and pelvis was reviewed. MRI of the brain was reviewed, which was done with and without contrast. The patient was seen by psychiatrist, neurologist, radiation oncologist, neurosurgery and hematology/oncology. Their recommendations noted. IMPRESSION: 1. 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 2. Left lower lobe consolidation. 3. Questionable hypertension. 4. Tachypnea. 5. Microscopic hematuria and rare bacteriuria. 6. History of fall. 7. History of recurrent fall. 8. Alcohol intoxication and history of alcohol and nicotine dependence and history of alcohol and nicotine dependence. 9. 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 10. Alcohol use disorder. 11. Alcohol intoxication. 12. Suicidal ideation. 13. Alcohol use disorder. 14. Left lower lobe consolidation. 15. Active alcohol intoxication. 16. Questionable left lower lobe pneumonia, atelectasis and right middle lobe and left upper lobe nodule. 17. Questionable encephalopathy. 18. History of noncompliance. 19. Deconditioning. 1. Right cerebral hemisphere extensive vasogenic edema with involvement of the right temporal, posterior frontal and parietal lobe; vasogenic edema with right- sided intracranial mass with suspected large mass in the right temporal lobe with additional masses of the right temporal, right posterior frontal lobe with intracranial mass effect and midline shift to the left of 9 mm with effacement of the basilar cistern on the right, effacement and displacement of the right lateral ventricle and diffuse sulcal effacement in the right cerebral hemisphere. 2. Active alcohol intoxication. 3. Questionable encephalopathy with confusional state. 4. Questionable suicidal ideation. 5. Trace proteinuria and microscopic hematuria and trace bacteriuria. 6. Acute alcohol intoxication. 7. Questionable left lower lobe pneumonia, atelectasis with right middle lobe and left upper lobe nodule. 8. History of nicotine and alcohol dependence and addiction. 9. Alcohol dependence and addiction. 10. Gait dysfunction with history of fall. 11. Questionable encephalopathy, etiology undetermined with acute alcohol intoxication. PLAN: At this time, patient is to be ordered serial labs. The patient is seen currently by hematology/oncology, neurosurgery, neurology, psychiatry and radiation/oncology. CURRENT MEDICATIONS: Mucomyst nebulizer treatments with Xopenex nebulizer treatment every 6 hours. Ativan 2 mg IV q. 2 hours p.r.n. The patient is on D5 half at 100 mL an hour, banana bag for 1 liter. The patient is on Decadron 6 mg IV q. 6. The patient is started on doxycycline 100 mg IV q. 12, folic acid 1 mg daily. The patient is on heparin 5000 subQ q. 12 for DVT prophylaxis , Keppra 500 mg IV q. 12, Lopressor 25 mg twice a day, Protonix 40 mg IV daily , Rocephin 1 gram IV daily, thiamine 100 mg IV daily, Xopenex nebulizer 0.63 mg q. 6, chest PT q. 6 hours, regular diet. The patient is on 1:1 sitter. The patient is on CIWA protocol. The patient is head of the bed at 30 degrees. Neuro checks. The patient's overall prognosis is guarded to poor. No family member, no next of kin, no children, no , no parents available for patient's power of workers compensation attorney. According to the patient's neighbors and friend, the patient has a sister in [place]. The name is unknown. The patient's friend attempted to contact the patient's so-called sister in [place]. The number was dialed from the hospital ICU. There was no response at the number which was apparently reported to be the patient's sister' s phone number in [place], but there was no answer. At present, patient was seen by the neurosurgery. The patient was offered craniotomy and debulking of the tumor, which patient declined and refused. The patient was found to be competent as per psychiatry recommendations. At this time, patient's overall prognosis is guarded to poor. The patient will be continued on the above therapeutic intervention. The patient's further management will be dependent upon the patient's clinical condition, hemodynamic status, and as per patient's response to therapeutic intervention, as per patient's diagnostic test results and recommendation by all the physicians involved in the care of the patient. Dictated and electronically signed, not read. Flash Harper MD cc: [id number] TT: 10/29/2016 00:37:04 Confirmation # [id number] Dictation # [id number] mn 10/29/2016 00:12:14 CHANTELL
[2016-10-29] MEDS: Dexamethasone 4 mg/1 ml IVP SCH ×4 (04:51→22:08)
[2016-10-29 06:17] LABS: ALB/GLOB RATIO 1.1 (1.1-1.8); ALKALINE PHOSPHATASE 61 U/L (38-133); ALT/SGPT 21 U/L (7-56); AST/SGOT 26 U/L (15-59); BILIRUBIN,DIRECT 0.4 mg/dL (0.0-0.4); BILIRUBIN,TOTAL 0.6 mg/dL (0.2-1.3); MAGNESIUM 2.4 mg/dL (1.7-2.2); PHOSPHOROUS 3.1 mg/dL (2.5-4.5); TOTAL PROTEIN 6.8 g/dL (5.8-8.3)
[2016-10-29 07:00] LABS: ADD MANUAL DIFF? NO
[2016-10-29 07:07] LABS: GRAN # 9.77 (1.4-6.5); GRAN % 85.4 % (50.0-68.0); HEMATOCRIT 41.5 % (42.0-52.0); LYMPH # 1.1 (1.2-3.4); LYMPH % 9.4 % (22.0-35.0); MEAN CELL VOLUME 94.7 fL (80.0-105.0); MEAN CORPUSCULAR HEMOGLOBIN 32.2 pg (25.0-35.0); MEAN PLATELET VOLUME 10.9 fl (7.0-11.0); MONO # 0.6 (0.1-0.6); MONO % 5.2 % (1.0-6.0); PLATELET COUNT 263 10^3/uL (120.0-450.0); RED CELL DISTRIBUTION WIDTH 13.1 % (11.5-14.5); WHITE BLOOD COUNT 11.4 10^3/ul (4.5-11.0)
[2016-10-29 07:13] LABS: BLOOD UREA NITROGEN 14 mg/dL (7-21); CALCIUM 8.8 mg/dL (8.4-10.5); CARBON DIOXIDE 25 mmol/L (21-33); CHLORIDE 101 mmol/L (98-107); GFR AFRICAN-AMERICAN > 60; GLUCOSE,RANDOM 162 mg/dL (70-110); POTASSIUM 4.4 mmol/L (3.6-5.0); SODIUM 134 mmol/L (132-148)
[2016-10-29] MEDS: Folic Acid 1 MG, Thiamine 100 MG, Multivitamin (MVI) 10 ML in Dextrose 5% In Water 1,00... IV SCH (08:01)
[2016-10-29] MEDS: Acetylcysteine 20% Inhal Soln (4ml) IH SCH ×3 (08:11→20:36)
[2016-10-29] MEDS: Levalbuterol 0.63 MG/3 ML Inhal Soln UD IH SCH ×3 (08:11→20:37)
[2016-10-29] MEDS: levETIRAcetam 500mg IVPB 100 ML IV SCH ×2 (09:54→22:09)
[2016-10-29] MEDS: cefTRIAXone 1 gm 100 ML IVPB SCH ×2 (09:54)
[2016-10-29] MEDS: Thiamine 100 mg/ml Inj IV SCH (09:56)
--- NOTE | 2016-10-29 10:33 | CP.PCM.CON ---
History of Present Illness - History of Present Illness History of Present Illness: Palliative consult requested by Reason: Advance care planning Presented to ED after falling his apartment. History of ETOH abuse, daily drinker. Denies loss of consciousness trauma to head. CT of head revealed a large area of edema and a mass in right cerebral hemisphere and another questionable mass in the right posterior lobe. No siezure activity noted. PMHx: ETOH abuse. Family History: Father had Parkinson's disease. Social History: Daily alcohol use,former smoker. Denies drug use. Lives alone. Review of Systems. Negative except for HPI. Past Patient History - Past Social History Smoking Status: Former Smoker Alcohol: > 2 Drinks/Day Home Situation {Lives}: Alone - CARDIAC Hx Cardiac Disorders: No Hx Hypertension: No - PULMONARY Hx Tuberculosis: No - NEUROLOGICAL HX Cerebrovascular Accident: No Hx Seizures: No - HEMATOLOGICAL/ONCOLOGICAL Hx Cancer: No Hx Human Immunodeficiency Virus (HIV): No - MUSCULOSKELETAL/RHEUMATOLOGICAL Hx Falls: Yes - GENITOURINARY/GYNECOLOGICAL Hx Sexually Transmitted Disorders: No - PSYCHIATRIC Hx Substance Use: No - SURGICAL HISTORY Hx Surgeries: No Meds Allergies/Adverse Reactions: Allergies Allergy/AdvReac Type Severity Reaction Status Date / Time No Known Allergies Allergy Verified 10/27/16 18:58 - Medications Medications: Current Medications Acetylcysteine (Acetylcysteine 20%) 4 ml IH [id number] [facility] Last Admin: 10/29/16 08:11 Dose: 4 ml Dexamethasone (Decadron Inj) 6 mg IVP Q6H [facility] Last Admin: 10/29/16 04:51 Dose: 6 mg Heparin Sodium (Porcine) (Heparin) 5,000 units SC Q12 [facility] PRN Reason: Protocol Last Admin: 10/29/16 09:51 Dose: 5,000 units Levetiracetam (Keppra 500mg Ivpb) 100 mls @ 400 mls/hr IV Q12 [facility] Last Admin: 10/29/16 09:54 Dose: 400 mls/hr Folic Acid 1 mg/ Thiamine HCl 100 mg/ Multivitamins/Vitamin C 10 ml/ Dextrose 1 ,011.2 mls @ 100 mls/hr IV .Q10H7M [facility] Last Admin: 10/29/16 08:01 Dose: 100 mls/hr Ceftriaxone Sodium (Rocephin 1 Gram Ivpb) 100 mls @ 100 mls/hr IVPB DAILY [facility] PRN Reason: Protocol Last Admin: 10/29/16 09:54 Dose: 100 mls/hr Doxycycline Hyclate 100 mg/ (Sodium Chloride) 100 mls @ 100 mls/hr IVPB Q12 [facility] PRN Reason: Protocol Last Admin: 10/29/16 09:55 Dose: 100 mls/hr Levalbuterol HCl (Xopenex) 0.63 mg IH [id number] [facility] Last Admin: 10/29/16 08:11 Dose: 0.63 mg Lorazepam (Ativan) 2 mg IVP Q2H PRN; Protocol PRN Reason: Symptoms of alcohol withdrawl Last Admin: 10/29/16 02:31 Dose: 2 mg Metoprolol Tartrate (Lopressor) 25 mg PO BID [facility] Last Admin: 10/29/16 09:54 Dose: 25 mg Pantoprazole Sodium (Protonix Inj) 40 mg IVP DAILY [facility] Last Admin: 10/29/16 09:54 Dose: 40 mg Thiamine HCl (Vitamin B1 Inj) 100 mg IV DAILY [facility] Stop: 10/30/16 10:01 Last Admin: 10/29/16 09:56 Dose: 100 mg Physical Exam - Constitutional Appears: Cachectic, Chronically Ill - Eye Exam Eye Exam: Normal appearance, PERRL - ENT Exam ENT Exam: Mucous Membranes Moist, Normal Oropharynx - Neck Exam Neck exam: Positive for: Normal Inspection - Respiratory Exam Respiratory Exam: Clear to Auscultation Bilateral, NORMAL BREATHING PATTERN - Cardiovascular Exam Cardiovascular Exam: REGULAR RHYTHM, +S1, +S2 - GI/Abdominal Exam GI & Abdominal Exam: Normal Bowel Sounds, Soft - Rectal Exam Additional comments: no tenderness or guarding - Extremities Exam Extremities exam: Positive for: full ROM, pedal pulses present - Back Exam Back exam: NORMAL INSPECTION - Neurological Exam Additional comments: oriented to place and self, tremulous, short attention span - Skin Skin Exam: Dry, Warm - Additional Findings Additional findings: Palliate performance scale rating 40 % Results - Vital Signs Recent Vital Signs: Last Vital Signs Temp 98.2 F 10/29/16 04:00 Pulse 78 10/29/16 06:00 Resp 22 10/29/16 06:00 BP 128/62 10/29/16 06:00 Pulse Ox 98 10/29/16 06:00 - Labs Result Diagrams: 10/29/16 06:50 10/29/16 05:40 Labs: Laboratory Results - last 24 hr 10/28/16 10/28/16 10/29/16 06:00 11:20 05:40 WBC RBC Hgb Hct MCV MCH MCHC RDW Plt Count MPV Gran % Lymph % (Auto) [place] % (Auto) Eos % (Auto) Baso % (Auto) Gran # Lymph # [place] # Eos # Baso # Sodium 134 Potassium 4.4 Chloride 101 Carbon Dioxide 25 Anion Gap 12 BUN 14 Creatinine 0.7 Est GFR ( Amer) > 60 Est GFR (Non-Af Amer) > 60 Random Glucose 162 H Calcium 8.8 Phosphorus 3.1 Magnesium 2.4 H Total Bilirubin 0.6 Direct Bilirubin 0.4 AST 26 ALT 21 Alkaline Phosphatase 61 Total Protein 6.8 Albumin 3.6 Globulin 3.3 Albumin/Globulin Ratio 1.1 Prostate Specific Ag 1.3 Vitamin B12 332 Folate > 20.0 Free T4 0.99 Thyroxine (T4) 5.2 L TSH 3rd Generation 0.74 RPR Nonreactive 10/29/16 06:50 WBC 11.4 H D RBC 4.38 Hgb 14.1 Hct 41.5 L MCV 94.7 MCH 32.2 MCHC 34.0 RDW 13.1 Plt Count 263 MPV 10.9 Gran % 85.4 H Lymph % (Auto) 9.4 L [place] % (Auto) 5.2 Eos % (Auto) 0.0 L Baso % (Auto) 0.0 Gran # 9.77 H Lymph # 1.1 L [place] # 0.6 Eos # 0.0 Baso # 0.00 Sodium Potassium Chloride Carbon Dioxide Anion Gap BUN Creatinine Est GFR ( Amer) Est GFR (Non-Af Amer) Random Glucose Calcium Phosphorus Magnesium Total Bilirubin Direct Bilirubin AST ALT Alkaline Phosphatase Total Protein Albumin Globulin Albumin/Globulin Ratio Prostate Specific Ag Vitamin B12 Folate Free T4 Thyroxine (T4) TSH 3rd Generation RPR Assessment & Plan - Assessment and Plan (Free Text) Assessment: 70 year old male admitted after suffering a mechanical fall at home. There was no loss of consciousness, trauma or seizure activity noted. CT of head revealed a large area of edema and a mass in right cerebral hemisphere and another questionable mass in the right posterior lobe. MRI of the brain confirms enhancing mass lesion at the right temporal lobe crossing the midline at the level of the posterior corpus callosum and surrounding with large vasogenic glioblastoma multiform. Ct of the of chest abdomen unremarkable except for small LLL infiltrate. The patient was seen by psychiatry today and was deemed neither suicidal or homicidal. The patient is requesting to do a POA and advance care plan. The patient is alert, oriented to place and self and able to answer questions appropriately. His attention span is short and he needs to be redirected during our conversation. He has a very good understanding of CPR, intubation and mechanical ventilation. 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 The patient is able to describe the steps and processes used during CPR and advanced life support. The patient is very clear that he wants to be resuscitated with CPR and intubation. When asked if he would want to be kept alive ad terminal makeup operator via tracheostomy, feeding tube and mechanical ventilation he states he does not want. He indicated that if he were in a vegetative state with no meaningful chance of improving he would want to be terminally extubated and allowed to comfortably. Our conversation was witnessed by the patients nurse Catalina, and PCP Leigh Ann. The patient wanted his friend Alecia to be his health care proxy. Since Alecia was not present for our conversation, I indicated that we would continue this conversation in her presence. Patient is undecided as to whether he wants to have surgical intervention of brain mass. Time present in discussion with patient regarding gaols of care and advance care planning 20 minutes Plan: Will follow and assist with advance care planning. - Date & Time Date: 10/28/16 Time: 15:00
--- NOTE | 2016-10-29 12:04 | CP.PCM.PN ---
Subjective - Date & Time of Evaluation Date of Evaluation: 10/29/16 Time of Evaluation: 12:00 - Subjective Subjective: Awake, able to answer questions. Offers no complaints. More tremulous today Objective - Vital Signs/Intake and Output Vital Signs (last 24 hours): Temp Pulse Resp BP Pulse Ox 98.2 F 78 22 128/62 98 10/29/16 04:00 10/29/16 06:00 10/29/16 06:00 10/29/16 06:00 10/29/16 06:00 Intake and Output: 10/29/16 10/29/16 06:59 18:59 Intake Total 3500 Output Total 1600 Balance 1900 - Medications Medications: Current Medications Acetylcysteine (Acetylcysteine 20%) 4 ml IH [id number] [facility] Last Admin: 10/29/16 08:11 Dose: 4 ml Dexamethasone (Decadron Inj) 6 mg IVP Q6H [facility] Last Admin: 10/29/16 11:25 Dose: 6 mg Heparin Sodium (Porcine) (Heparin) 5,000 units SC Q12 [facility] PRN Reason: Protocol Last Admin: 10/29/16 09:51 Dose: 5,000 units Levetiracetam (Keppra 500mg Ivpb) 100 mls @ 400 mls/hr IV Q12 [facility] Last Admin: 10/29/16 09:54 Dose: 400 mls/hr Folic Acid 1 mg/ Thiamine HCl 100 mg/ Multivitamins/Vitamin C 10 ml/ Dextrose 1 ,011.2 mls @ 100 mls/hr IV .Q10H7M [facility] Last Admin: 10/29/16 08:01 Dose: 100 mls/hr Ceftriaxone Sodium (Rocephin 1 Gram Ivpb) 100 mls @ 100 mls/hr IVPB DAILY [facility] PRN Reason: Protocol Last Admin: 10/29/16 09:54 Dose: 100 mls/hr Doxycycline Hyclate 100 mg/ (Sodium Chloride) 100 mls @ 100 mls/hr IVPB Q12 [facility] PRN Reason: Protocol Last Admin: 10/29/16 09:55 Dose: 100 mls/hr Levalbuterol HCl (Xopenex) 0.63 mg IH [id number] [facility] Last Admin: 10/29/16 08:11 Dose: 0.63 mg Lorazepam (Ativan) 2 mg IVP Q2H PRN; Protocol PRN Reason: Symptoms of alcohol withdrawl Last Admin: 10/29/16 02:31 Dose: 2 mg Metoprolol Tartrate (Lopressor) 25 mg PO BID [facility] Last Admin: 10/29/16 09:54 Dose: 25 mg Pantoprazole Sodium (Protonix Inj) 40 mg IVP DAILY [facility] Last Admin: 10/29/16 09:54 Dose: 40 mg Thiamine HCl (Vitamin B1 Inj) 100 mg IV DAILY [facility] Stop: 10/30/16 10:01 Last Admin: 10/29/16 09:56 Dose: 100 mg - Labs Labs: 10/29/16 06:50 10/29/16 05:40 PT 11.1 Seconds (9.9-11.8) 10/28/16 01:13 INR 1.03 (0.93-1.08) 10/28/16 01:13 APTT 27.3 Seconds (23.7-30.8) 10/28/16 01:13 - Constitutional Appears: No Acute Distress, Chronically Ill - Eye Exam Eye Exam: Normal appearance, PERRL - ENT Exam ENT Exam: Mucous Membranes Moist - Respiratory Exam Respiratory Exam: Decreased Breath Sounds, NORMAL BREATHING PATTERN - Cardiovascular Exam Cardiovascular Exam: REGULAR RHYTHM, +S1, +S2 - GI/Abdominal Exam GI & Abdominal Exam: Soft, Normal Bowel Sounds - Extremities Exam Extremities Exam: Full ROM, Normal Capillary Refill - Neurological Exam Neurological Exam: Alert Additional comments: periods of confusion - Skin Skin Exam: Dry, Pallor Assessment and Plan - Assessment and Plan (Free Text) Assessment: 70 year old male admitted after a mechanical fall at home. History of brain mass , ETOH abuse. The patient has sitter today for safety He was agitated this morning and was attempting to get out of bed.. He remembers me visiting him yesterday,and is able to recall some of our conversation. The patient states that he does not want to have brain surgery. He becomes more guarded when asked about how he will mage his care in the future. I asked about his employment. 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 He is able to describe the children he cared for, including some of their disabilities. He stated that his job required that he be able to perform CPR. When asked about family, he states that he has family in [place]. He claims he does not keep in touch with his family.He has a s friend Alecia who he trusts. He is waiting for Alecia to visit. Plan: Continue current medical management. Will assist with advance care planning.
--- NOTE | 2016-10-29 12:09 | PN ---
DATE: 10/29/2016 SUBJECTIVE: The patient is seen in ICU bed 6. The patient was seen and examined with the patient's nurse, Jelly, at bedside. The patient is lying in the bed. The patient is alert, awake, responsive, oriented to person, oriented to place, oriented to month and year and date, states 11/28. The patient is able to state his date of fully and completely. The patient is able to spell his last name forward, but not able to spell his last name backward. The patient is able to follow simple commands. Vital signs overnight nurse's notes were reviewed. The patient slept well. The patient had episodic agitation. PHYSICAL EXAMINATION: VITAL SIGNS: T-max is 98.2. Telemetry shows sinus rhythm in 70s and 80s. Present heart rate is 103, blood pressure 128/62, respirations 22, O2 sat 93%-98 %. INTAKE AND OUTPUT: Intake 1600, output 800, intake 1900, output 800. HEENT: Normocephalic, atraumatic. Shows pinkish conjunctivae, anicteric sclerae. No oropharyngeal lesion. NECK: No neck rigidity. Questionable left-sided gaze preference. CHEST: Kyphosis. LUNGS: Shows positive rhonchi. Positive creps, left more than the right. CARDIOVASCULAR: Shows S1, S2, regular rhythm. ABDOMEN: Soft, positive bowel sounds. GENITALIA: Male. RECTAL: Deferred. EXTREMITIES: Shows no pitting edema, no calf tenderness, no Tung sign. NEUROLOGIC: The patient is alert, awake, responsive. The patient follows simple commands. The patient is alert, awake, oriented. Moves upper and lower extremities without assistance. Gait examination is not tested. VASCULAR: Palpable pulses. MUSCULOSKELETAL: Shows a body mass index of 27. Gait examination is not tested. PSYCHIATRIC: The patient has episodic agitation, restlessness. DIAGNOSTICS: 10/29, WBC 11.4, hemoglobin and hematocrit 11.1/41.5, platelet 263 , granulocytes 85.4. Sodium 134, potassium 4.4, chloride 101, CO2 of 25, anion gap 12, BUN 14, creatinine 0.7, GFR greater than 60, glucose 162, calcium 8.8, phosphorus 3.1, magnesium 2.2. LFTs are normal. TSH is normal. HIV fourth generation negative, RPR negative. IMPRESSION AND PLAN: 1. Right temporal lobe hydrogenous enhancing lesion in the medial portion extending superiorly to the inferior aspect of the right parietal lobe with mass crossing the midline at the level of the posterior portion of the corpus callosum suggestive of malignant neoplasm such as glioblastoma multiforme with large vasogenic edema surrounding the mass with mass effect on the right lateral ventricle and partial effacement of the right basilar cistern and possibility of mild transtentorial subfalcine herniation with heterogenous enhancement of the right temporal lobe mass with heterogenous enhancement of the right temporal mass and effacement of the adjacent dura including the right tentorium, right ventricular compression by the mass lesion. 2. Left lower lobe consolidation. 3. Episodic transient hypertension. 4. Transient hypoxemia. 5. Tachycardia. 6. Leukocytosis with granulocytosis, probably Decadron induced. 7. Trace proteinuria, microscopic hematuria, bacteriuria. 8. Alcohol intoxication with history of alcohol dependence, addiction and nicotine addiction dependence. 1. 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 2. Left lower lobe consolidation. 3. Questionable hypertension. 4. Tachypnea. 5. Microscopic hematuria and rare bacteriuria. 6. History of fall. 7. History of recurrent fall. 8. Alcohol intoxication and history of alcohol and nicotine dependence and history of alcohol and nicotine dependence. 9. 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 10. Alcohol use disorder. 11. Alcohol intoxication. 12. Suicidal ideation. 13. Alcohol use disorder. 14. Left lower lobe consolidation. 15. Active alcohol intoxication. 16. Questionable left lower lobe pneumonia, atelectasis and right middle lobe and left upper lobe nodule. 17. Questionable encephalopathy. 18. History of noncompliance. 19. Deconditioning. 1. Right cerebral hemisphere extensive vasogenic edema with involvement of the right temporal, posterior frontal and parietal lobe; vasogenic edema with right- sided intracranial mass with suspected large mass in the right temporal lobe with additional masses of the right temporal, right posterior frontal lobe with intracranial mass effect and midline shift to the left of 9 mm with effacement of the basilar cistern on the right, effacement and displacement of the right lateral ventricle and diffuse sulcal effacement in the right cerebral hemisphere. 2. Active alcohol intoxication. 3. Questionable encephalopathy with confusional state. 4. Questionable suicidal ideation. 5. Trace proteinuria and microscopic hematuria and trace bacteriuria. 6. Acute alcohol intoxication. 7. Questionable left lower lobe pneumonia, atelectasis with right middle lobe and left upper lobe nodule. 8. History of nicotine and alcohol dependence and addiction. 9. Alcohol dependence and addiction. 10. Gait dysfunction with history of fall. 11. Questionable encephalopathy, etiology undetermined with acute alcohol intoxication. The patient was seen by psychiatry, neurology, radiation oncology, neurosurgery and hematology/oncology. The patient seen by Merly Feliciano from palliative care. The patient was attempted to be seen by the psychiatric social worker supervisor regarding possibilities of power of senior solutions workflow consultant, medical proxy, advanced directive. The patient was seen by neurosurgery. They have attempted also to contact the patient's niece in [place] regarding consent for surgery. The patient was seen by psychiatric social worker supervisor, psychiatry. Plan at this time, the patient at present is to be continued on above care with consultations by neurology, neurosurgery, psychiatry and oncology. Referral to social welfare research worker, case management is done. MEDICATIONS: Mucomyst and Xopenex nebulizer treatment. The patient is on Ativan 2 mg IV q. 2 hours p.r.n., Decadron 6 mg IV q. 6, doxycycline 100 mg IV q. 12, heparin 5000 subQ q. 12, Keppra 500 IV q. 12, Lopressor 25 mg twice a day , Protonix 40 mg IV daily, Rocephin 1 gram IV daily, thiamine 100 mg IV daily, Xopenex nebulizer. The patient is on chest PT, regular diet, out of bed, neuro checks, strict I's and O's. The patient is on CIWA protocol. The patient has been ordered physical therapy and occupational therapy. At present, patient's overall prognosis is guarded to poor. Dictated and electronically signed, not read. Flash Harper MD cc: [id number] TT: 10/29/2016 12:09:14 Confirmation # [id number] Dictation # [id number] rn MTDD
[2016-10-29] MEDS: Sodium Chloride 0.45% 1,000 ML IV SCH (13:26)
[2016-10-30] MEDS: Acetylcysteine 20% Inhal Soln (4ml) IH SCH ×4 (01:16→21:00)
[2016-10-30] MEDS: Levalbuterol 0.63 MG/3 ML Inhal Soln UD IH SCH ×4 (01:16→21:00)
[2016-10-30] MEDS: Dexamethasone 4 mg/1 ml IVP SCH ×4 (05:54→22:03)
[2016-10-30 07:57] LABS: ALB/GLOB RATIO 1.1 (1.1-1.8); ALKALINE PHOSPHATASE 65 U/L (38-133); ALT/SGPT 21 U/L (7-56); AST/SGOT 28 U/L (15-59); BILIRUBIN,DIRECT 0.5 mg/dL (0.0-0.4); BILIRUBIN,TOTAL 0.6 mg/dL (0.2-1.3); TOTAL PROTEIN 7.5 g/dL (5.8-8.3)
[2016-10-30 08:57] LABS: MAGNESIUM 2.4 mg/dL (1.7-2.2); PHOSPHOROUS 3.5 mg/dL (2.5-4.5)
[2016-10-30] MEDS: levETIRAcetam 500mg IVPB 100 ML IV SCH ×2 (08:59→21:49)
[2016-10-30] MEDS: Thiamine 100 mg/ml Inj IV SCH (09:04)
[2016-10-30] MEDS: Sodium Chloride 0.45% 1,000 ML IV SCH ×2 (09:06→17:49)
[2016-10-30 09:52] LABS: BLOOD UREA NITROGEN 16 mg/dL (7-21); CALCIUM 9.2 mg/dL (8.4-10.5); CARBON DIOXIDE 25 mmol/L (21-33); CHLORIDE 101 mmol/L (98-107); GFR AFRICAN-AMERICAN > 60; GLUCOSE,RANDOM 119 mg/dL (70-110); POTASSIUM 4.2 mmol/L (3.6-5.0); SODIUM 135 mmol/L (132-148)
[2016-10-30] MEDS: cefTRIAXone 1 gm 100 ML IVPB SCH (10:16)
--- NOTE | 2016-10-30 10:33 | PN ---
DATE: 10/30/2016 The patient is seen in room 372, bed 1. The patient is lying in the bed with the patient's friend, Alecia, at bedside. The patient is alert, awake, responsive. Overnight nurse's notes were reviewed. The patient was transferred yesterday overnight to ____. The patient was found to be alert, awake, responsive with episodic confusion. The patient mostly lay in the bed. The patient was maintained on 1:1. The patient was refusing. The patient is seen lying in the bed. VITAL SIGNS: T-max 97.8, pulse 78, blood pressure 139/72, 126/85, 140/72, respirations 20, O2 sat averaging around low to mid 90s. Intake/output not documented correctly. HEAD: Normocephalic, atraumatic. HEENT: Shows pinkish, pale conjunctivae, anicteric sclerae. No oropharyngeal lesion. No neck rigidity. CHEST: Symmetrical. LUNG: Shows decreased breath sounds at the left base. Positive rhonchi noted. CARDIOVASCULAR: S1, S2 regular rhythm. ABDOMEN: Soft, positive bowel sounds. GENITALIA: Male. RECTAL: Deferred. EXTREMITIES: Show no pitting edema, no calf tenderness, no Homans' sign. NEUROLOGIC: The patient is alert, awake, responsive, follows simple commands. He is able to say his name. He is able to say his date of , but does not remember today's date and day. Able to remember the year. The patient is able to spell his name forward, but not backwards. MUSCULOSKELETAL: Shows a body mass index of 27.2. Cranial nerves II-XII limited. VASCULAR: Palpable pulses. PSYCHIATRIC: Positive for history of some questionable suicidal ideation at the time of admission, but at present, the patient denies it. GAIT: Could not be tested, as the patient is lying in the bed, but motor strength is 5/5, as the patient is able to move upper and lower extremity without assistance. Gait examination was not tested MUSCULOSKELETAL: Shows a body mass index of 27.2. Cranial nerves II-XII limited. DIAGNOSTICS: None from today. The patient's LFTs are available, but CMP is not available. It is still supposed to be pending. MRSA cultures none. IMPRESSION AND PLAN: 1. Right temporal lobe heterogenous enhancing lesion in the medial portion extending superiorly into the inferior aspect of the right parietal lobe with mass crossing the midline at the level of the posterior portion of the corpus callosum suggestive of malignant neoplasm such as glioblastoma multiforme with large vasogenic edema surrounding the mass with mass effect on the right lateral ventricle and partial effacement of the right basilar cistern and possibility of mild transtentorial subfalcine herniation with heterogenous effacement of the right parietal lobe mass with heterogenous enhancement of the right temporal mass and effacement of the adjacent dura including the right tentorium, right ventricular compression by the mass lesion. 2. Left lower lobe consolidation. 3. Possible hypertension. 4. Transient hypoxemia. 5. Tachycardia. 6. Leukocytosis with granulocytosis, probably Decadron-induced. 7. Trace proteinuria, microscopic hematuria, pyuria, bacteriuria. 8. Alcohol intoxication with history of alcohol dependence addiction and nicotine addiction and dependence. 9. Questionable history of suicidal ideation. 10. Right temporal lobe, medial portion heterogenous enhancing mass lesion extending superiorly into inferior aspect of the right parietal lobe measuring 7 cm x 4.6 cm x 5.5 cm with the mass crossing the midline at the level of the posterior portion of the corpus callosum suggestive of malignant neoplasm such has glioblastoma multiforme with large vasogenic edema surrounding the mass, resulting in mass effect on the right lateral ventricle with 11 mm right to left midline shift, and partial effacement of the right basilar cistern with possibility of mild transtentorial and subfalcine herniation with mild enhancement of the adjacent dura along with the right tentorium with right ventricular compression by the right temporal lobe mass. 11. Left frontal and maxillary sinus mucosal thickening. 12. Deconditioning. 1. Right temporal lobe hydrogenous enhancing lesion in the medial portion extending superiorly to the inferior aspect of the right parietal lobe with mass crossing the midline at the level of the posterior portion of the corpus callosum suggestive of malignant neoplasm such as glioblastoma multiforme with large vasogenic edema surrounding the mass with mass effect on the right lateral ventricle and partial effacement of the right basilar cistern and possibility of mild transtentorial subfalcine herniation with heterogenous enhancement of the right temporal lobe mass with heterogenous enhancement of the right temporal mass and effacement of the adjacent dura including the right tentorium, right ventricular compression by the mass lesion. 2. Left lower lobe consolidation. 3. Episodic transient hypertension. 4. Transient hypoxemia. 5. Tachycardia. 6. Leukocytosis with granulocytosis, probably Decadron induced. 7. Trace proteinuria, microscopic hematuria, bacteriuria. 8. Alcohol intoxication with history of alcohol dependence, addiction and nicotine addiction dependence. 1. 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 2. Left lower lobe consolidation. 3. Questionable hypertension. 4. Tachypnea. 5. Microscopic hematuria and rare bacteriuria. 6. History of fall. 7. History of recurrent fall. 8. Alcohol intoxication and history of alcohol and nicotine dependence and history of alcohol and nicotine dependence. 9. 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 10. Alcohol use disorder. 11. Alcohol intoxication. 12. Suicidal ideation. 13. Alcohol use disorder. 14. Left lower lobe consolidation. 15. Active alcohol intoxication. 16. Questionable left lower lobe pneumonia, atelectasis and right middle lobe and left upper lobe nodule. 17. Questionable encephalopathy. 18. History of noncompliance. 19. Deconditioning. 1. Right cerebral hemisphere extensive vasogenic edema with involvement of the right temporal, posterior frontal and parietal lobe; vasogenic edema with right- sided intracranial mass with suspected large mass in the right temporal lobe with additional masses of the right temporal, right posterior frontal lobe with intracranial mass effect and midline shift to the left of 9 mm with effacement of the basilar cistern on the right, effacement and displacement of the right lateral ventricle and diffuse sulcal effacement in the right cerebral hemisphere. 2. Active alcohol intoxication. 3. Questionable encephalopathy with confusional state. 4. Questionable suicidal ideation. 5. Trace proteinuria and microscopic hematuria and trace bacteriuria. 6. Acute alcohol intoxication. 7. Questionable left lower lobe pneumonia, atelectasis with right middle lobe and left upper lobe nodule. 8. History of nicotine and alcohol dependence and addiction. 9. Alcohol dependence and addiction. 10. Gait dysfunction with history of fall. 11. Questionable encephalopathy, etiology undetermined with acute alcohol intoxication. PLAN: 1. At this time, we are awaiting further decision by the family and the patient about neurosurgical intervention. The patient has been ordered serial labs. Current consultation oncology. 2. Neurosurgery. 3. Neurology. 4. Psychiatry. 5. The patient's case referred to licensed social worker. CURRENT MEDICATIONS: 1. IV half normal saline at 80 mL an hour. 2. Mucomyst nebulizer 20%, 4 mL q. 6 hours with ____ Xopenex nebulizer 0.63 mg every 6 hours. 3. Ativan 2 mg IV q. 2 hours p.r.n. 4. Decadron 6 mg IV q. 6 p.r.n. 5. Doxycycline 100 mg IV q. 12. 6. Heparin 5000 units subQ q. 12. 7. Keppra 500 mg IV q. 12. 8. Lopressor 25 mg twice a day. 9. Protonix 40-mg IV push daily. 10. Rocephin 1 gram IV daily. 11. Thiamine 100 mg IV daily. 12. Xopenex nebulizer 0.63 mg every 6 hours. Chest PT ordered. The patient has been on regular diet. The patient has been ordered out of bed to chair, physical therapy, occupational therapy, ambulation therapy, referral to licensed social worker. Discharge planning ordered. At present, I have been unable to contact the patient's next-of-kin, which apparently is a niece, and the only next-of-kin who resides in [place]. The phone number, which I have tried, I have not been able to get a live person on the phone number. PROGNOSIS: Guarded to poor. Dictated and electronically signed, not read. Flash Harper MD cc: [id number] TT: 10/30/2016 10:33:17 Confirmation # [id number] Dictation # [id number] jn CHANTELL
--- NOTE | 2016-10-30 18:55 | PN ---
DATE: 10/30/2016 CHIEF COMPLAINT: Follow up for right temporal lobe mass. SUBJECTIVE: The patient is seen and examined at bedside. He is on 1:1. He is slightly tremulous, a waiting family decision for neurosurgical intervention. Oncology is on board. No acute events overn ight. He is on dexamethasone 6 mg IV q.6 for edema, and on prophylactic Keppra 500 mg q.12 hours IV for seizure prevention. PAST MEDICAL HISTORY: ETOH abuse, history of right temporal mass seen on the CAT scan in 08/2016. PAST SURGICAL HISTORY: None. SOCIAL HISTORY: Admits to frequent alcohol use, former smoker, denies any illicit drug use. MEDICATIONS: Reviewed via nurses' reconciliation sheet. FAMILY HISTORY: Father had Parkinson disease. Mother is noncontributory. ALLERGIES: No known drug allergies. REVIEW OF SYSTEMS: A 14-point review of systems is negative except for the HPI. PHYSICAL EXAMINATION: VITAL SIGNS: Temperature 98.6, pulse rate 78, blood pressure 139/72, respiratory rate 20, oxygen 97% on room air. GENERAL: The patient is sitting up in bed in no acute distress, slightly tremulous. HEENT: Atraumatic, normocephalic. PERRLA. Extraocular muscles intact. NECK: Supple, no JVD, no adenopathy noted. LUNGS: Clear to auscultation. No adventitious sounds. HEART: S1, S2, normal rate and rhythm. No murmurs, rubs, or gallops. ABDOMEN: Soft, nontender, nondistended. Bowel sounds present. EXTREMITIES: No clubbing, no cyanosis. Peripheral pulses 2+ bilaterally. NEUROLOGIC: The patient is alert, oriented to person, place, month and year. Speech is fluent, with out errors. Recall after 5 minutes is 1/3. Poor attention span. Slow thought process. Flat affect, tremulous looking. MOTOR: Moving all extremities equally. No pronator drift seen. Mild reduced finger tap on the left upper extremity, otherwise moves all extremities. Toes are downgoing bilaterally. SENSORY: Light touch, pinprick, proprioception, vibration is intact. DTRs 2+ throughout, 1 at the a nkles. COORDINATION: [id number] is slightly tremulous, and has some mild dysdiadochokinesia when hands are stretched out from alcohol withdrawal. GAIT: Is deferred for now. LABORATORY DATA: Sodium is 135, potassium 4.2, chloride of 101, carbon dioxide 25, BUN of 16, creati nine of 0.8. ASSESSMENT AND PLAN: This is a 70-year-old man with a past medical history of chronic ETOH abuse who had slipped and fell in his apartment building without any loss of consciousness or hitting his head . He came to the hospital and his brain MRI now shows a heterogeneous enhancing mass in the right te mporal lobe measuring 7 x 4.6 x 5.5 cm crossing the midline at the level of the posterior corpus call osum surrounded with large vasogenic edema, which is consistent with glioblastoma multiforme. Thompson corado is on board as well as radiation oncology. At this time, would recommend: 1. He would require chemoradiation and neurosurgical management for possible surgical resection of t he brain lesion itself. Follow up with neurosurgery at this time as well as radiation oncology. 2. Keep him on prophylactic Keppra IV q.12 for seizure prophylaxis. 3. Continue with Decadron 6 mg IV q.6 hours for underlying vasogenic edema. 4. Continue with CIWA protocol for his alcohol withdrawal and multivitamins and thiamine and continu e with current present medical management. Will follow up with neurosurgery and follow their recommendations. Will watch peripherally. Please reconsult if necessary. Antonio Cortés MD cc: [phone] TT: 10/30/2016 18:54:49 Confirmation # [id number] Dictation # [id number] chula
[2016-10-31] MEDS: Levalbuterol 0.63 MG/3 ML Inhal Soln UD IH SCH ×4 (02:40→20:45)
[2016-10-31] MEDS: Acetylcysteine 20% Inhal Soln (4ml) IH SCH ×4 (02:40→20:45)
[2016-10-31] MEDS: Dexamethasone 4 mg/1 ml IVP SCH ×4 (05:24→22:04)
[2016-10-31] MEDS: Sodium Chloride 0.45% 1,000 ML IV SCH (08:12)
--- NOTE | 2016-10-31 08:27 | CP.PCM.PN ---
Subjective - Date & Time of Evaluation Date of Evaluation: 10/31/16 Time of Evaluation: 07:45 - Subjective Subjective: (covering for Dr. Harper) Patient is confused. He is talking about getting his car and going out to eat for breakfast. Objective - Vital Signs/Intake and Output Vital Signs (last 24 hours): Temp Pulse Resp BP Pulse Ox 98.6 F 94 H 20 160/103 H 95 10/30/16 16:10 10/31/16 08:11 10/30/16 16:10 10/31/16 08:11 10/30/16 16:10 Intake and Output: 10/31/16 10/31/16 06:59 18:59 Intake Total 660 Output Total 500 Balance 160 - Medications Medications: Current Medications Acetylcysteine (Acetylcysteine 20%) 4 ml IH [id number] [facility] Last Admin: 10/31/16 07:39 Dose: 4 ml Dexamethasone (Decadron Inj) 6 mg IVP Q6H [facility] Last Admin: 10/31/16 05:24 Dose: 6 mg Heparin Sodium (Porcine) (Heparin) 5,000 units SC Q12 DIA PRN Reason: Protocol Last Admin: 10/30/16 21:49 Dose: 5,000 units Levetiracetam (Keppra 500mg Ivpb) 100 mls @ 400 mls/hr IV Q12 DIA Last Admin: 10/30/16 21:49 Dose: 400 mls/hr Ceftriaxone Sodium (Rocephin 1 Gram Ivpb) 100 mls @ 100 mls/hr IVPB DAILY DIA PRN Reason: Protocol Last Admin: 10/30/16 10:16 Dose: 100 mls/hr Doxycycline Hyclate 100 mg/ (Sodium Chloride) 100 mls @ 100 mls/hr IVPB Q12 DIA PRN Reason: Protocol Last Admin: 10/30/16 21:49 Dose: 100 mls/hr Sodium Chloride (Sodium Chloride 0.45%) 1,000 mls @ 80 mls/hr IV .[id number] [facility] Last Admin: 10/31/16 08:12 Dose: 80 mls/hr Levalbuterol HCl (Xopenex) 0.63 mg IH [id number] [facility] Last Admin: 10/31/16 07:39 Dose: 0.63 mg Lorazepam (Ativan) 2 mg IVP Q2H PRN; Protocol PRN Reason: Symptoms of alcohol withdrawl Last Admin: 10/31/16 08:12 Dose: 2 mg Metoprolol Tartrate (Lopressor) 25 mg PO BID [facility] Last Admin: 10/31/16 08:11 Dose: 25 mg Pantoprazole Sodium (Protonix Inj) 40 mg IVP DAILY [facility] Last Admin: 10/30/16 09:04 Dose: 40 mg - Labs Labs: 10/29/16 06:50 10/30/16 07:00 PT 11.1 Seconds (9.9-11.8) 10/28/16 01:13 INR 1.03 (0.93-1.08) 10/28/16 01:13 APTT 27.3 Seconds (23.7-30.8) 10/28/16 01:13 - Constitutional Appears: No Acute Distress - Head Exam Head Exam: ATRAUMATIC, NORMOCEPHALIC - Respiratory Exam Respiratory Exam: Decreased Breath Sounds - Cardiovascular Exam Cardiovascular Exam: +S1, +S2 - GI/Abdominal Exam GI & Abdominal Exam: Soft - Neurological Exam Neurological Exam: Alert, Awake Assessment and Plan - Assessment and Plan (Free Text) Assessment: H/O alcohol abuse Left lower lobe consolidation Heterogenous enhancing mass at medial portion of right parietal lobe slightly crossing the midline at the corpus callosum Plan: Patient's mass is most likely a glioblastoma multiforme. Oncology, radiation oncology, neurosurgery and neurology are on the case. Patient is on Decadron IV for edema and prophylactic keppra for seizures. Surgery has been recommended. Awaiting decision by the patient and family.
[2016-10-31] MEDS: levETIRAcetam 500mg IVPB 100 ML IV SCH ×2 (09:38→21:49)
[2016-10-31] MEDS: cefTRIAXone 1 gm 100 ML IVPB SCH (09:39)
[2016-11-01] MEDS: Acetylcysteine 20% Inhal Soln (4ml) IH SCH ×4 (01:56→19:38)
[2016-11-01] MEDS: Levalbuterol 0.63 MG/3 ML Inhal Soln UD IH SCH ×4 (01:56→19:38)
[2016-11-01] MEDS: Dexamethasone 4 mg/1 ml IVP SCH ×4 (04:56→23:21)
[2016-11-01 06:32] LABS: ADD MANUAL DIFF? NO
[2016-11-01 06:39] LABS: BASO # 0.01 K/mm3 (0.0-2.0); BASO % 0.1 % (0.0-3.0); GRAN # 9.68 (1.4-6.5); GRAN % 86.1 % (50.0-68.0); HEMATOCRIT 43.5 % (42.0-52.0); LYMPH % 8.4 % (22.0-35.0); MEAN CELL VOLUME 95.2 fL (80.0-105.0); MEAN CORPUSCULAR HGB CONC 34.7 g/dl (31.0-37.0); MONO # 0.6 (0.1-0.6); MONO % 5.4 % (1.0-6.0); PLATELET COUNT 250 10^3/uL (120.0-450.0); RED CELL DISTRIBUTION WIDTH 13.3 % (11.5-14.5); WHITE BLOOD COUNT 11.3 10^3/ul (4.5-11.0)
[2016-11-01 07:01] LABS: ALB/GLOB RATIO 1.1 (1.1-1.8); ALKALINE PHOSPHATASE 55 U/L (38-133); ALT/SGPT 47 U/L (7-56); AST/SGOT 34 U/L (15-59); BILIRUBIN,DIRECT 0.5 mg/dL (0.0-0.4); BILIRUBIN,TOTAL 0.6 mg/dL (0.2-1.3); BLOOD UREA NITROGEN 19 mg/dL (7-21); CALCIUM 9.1 mg/dL (8.4-10.5); CARBON DIOXIDE 24 mmol/L (21-33); CHLORIDE 101 mmol/L (95-110); GFR AFRICAN-AMERICAN > 60; GLUCOSE,RANDOM 123 mg/dL (70-110); MAGNESIUM 2.4 mg/dL (1.7-2.2); POTASSIUM 4.6 mmol/L (3.6-5.0); SODIUM 132 mmol/L (132-148)
[2016-11-01] MEDS: cefTRIAXone 1 gm 100 ML IVPB SCH (09:27)
[2016-11-01] MEDS: levETIRAcetam 500mg IVPB 100 ML IV SCH ×2 (09:28→21:43)
[2016-11-01] MEDS: Sodium Chloride 0.45% 1,000 ML IV SCH (09:33)
[2016-11-01] MEDS: POLYETHYLENE GLYCOL 3350 17 GM/Dose PACKET PO SCH ×2 (11:14→17:17)
--- NOTE | 2016-11-01 12:28 | PN ---
DATE: 11/01/2016 The patient is seen lying in the bed in room 372, bed 1. The patient is alert, awake, oriented x 2. HEAD: Normocephalic, atraumatic. HEENT: Shows pink conjunctivae, anicteric sclerae. No oropharyngeal lesion. NECK: No neck rigidity. Soft carotid bruit. CHEST: Kyphosis. LUNGS: Show occasional rhonchi, upper lung herman. Decreased breath sounds at the left base. Questionable creps at the left more than the right. CARDIOVASCULAR: S1, S2, regular rhythm. ABDOMEN: Soft. Positive bowel sounds. GENITALIA: Male. RECTAL: Deferred. EXTREMITIES: Shows no pitting edema, no calf tenderness, no Homans' sign. NEUROLOGIC: The patient is alert, awake, oriented to person, oriented to place , disoriented to date, month. The patient follows commands, is able to move upper and lower extremities without assistance. Gait examination is not tested. MUSCULOSKELETAL: Shows a body mass index of greater than 27. PSYCHIATRIC: Not applicable except for initial presentation with suicidal ideation. VITAL SIGNS: T-max 97.7. Heart rate is 66-75, blood pressure in the last 24 hours, 160/81, 159/88, 120/74, 1____/77, respirations 20, O2 sat 96%. DIAGNOSTICS: / - WBC 11.3, hemoglobin and hematocrit 15.1 and 43.5, platelets 250, granulocytes 86%. Sodium 132, potassium 4.6, chloride 101, CO2 of 24, anion gap 12, BUN 19, creatinine 0.7. GFR greater than 60. Glucose 123 , calcium 9.1, magnesium 2.4. LFTs are normal. MRSA nondetected. IMPRESSION AND PLAN: 1. Right temporal lobe heterogenous enhancing lesion in the medial portion, extending superiorly into the inferior aspect of the right parietal lobe with mass crossing the midline at the level of the posterior portions of the corpus callosum suggestive of malignant neoplasm. Suggest glioblastoma multiforme with large vasogenic edema surrounding the mass, with mass effect on the right lateral ventricle and partial effacement of the right basilar cistern, and possibility of mild transtentorial subfalcine herniation with heterogenous effacement of the right parietal lobe, parietal lobe mass with heterogenous enhancement of the right temporal mass, and effacement of the adjacent dura including the right tentorium, right ventricular compression by the mass lesion. 2. Questionable hypertension, transient. 3. Leukocytosis with granulocytosis probably Decadron-induced. 4. Trace proteinuria, microscopic hematuria, rare bacteriuria. 5. History of alcohol and nicotine dependence. 6. Acute alcohol intoxication on admission. 7. Deconditioning. 8. Gait dysfunction. 9. Encephalopathy. 10. Most likely right temporoparietal lobe glioblastoma multiforme. 1. Right temporal lobe heterogenous enhancing lesion in the medial portion extending superiorly into the inferior aspect of the right parietal lobe with mass crossing the midline at the level of the posterior portion of the corpus callosum suggestive of malignant neoplasm such as glioblastoma multiforme with large vasogenic edema surrounding the mass with mass effect on the right lateral ventricle and partial effacement of the right basilar cistern and possibility of mild transtentorial subfalcine herniation with heterogenous effacement of the right parietal lobe mass with heterogenous enhancement of the right temporal mass and effacement of the adjacent dura including the right tentorium, right ventricular compression by the mass lesion. 2. Left lower lobe consolidation. 3. Possible hypertension. 4. Transient hypoxemia. 5. Tachycardia. 6. Leukocytosis with granulocytosis, probably Decadron-induced. 7. Trace proteinuria, microscopic hematuria, pyuria, bacteriuria. 8. Alcohol intoxication with history of alcohol dependence addiction and nicotine addiction and dependence. 9. Questionable history of suicidal ideation. 10. Right temporal lobe, medial portion heterogenous enhancing mass lesion extending superiorly into inferior aspect of the right parietal lobe measuring 7 cm x 4.6 cm x 5.5 cm with the mass crossing the midline at the level of the posterior portion of the corpus callosum suggestive of malignant neoplasm such has glioblastoma multiforme with large vasogenic edema surrounding the mass, resulting in mass effect on the right lateral ventricle with 11 mm right to left midline shift, and partial effacement of the right basilar cistern with possibility of mild transtentorial and subfalcine herniation with mild enhancement of the adjacent dura along with the right tentorium with right ventricular compression by the right temporal lobe mass. 11. Left frontal and maxillary sinus mucosal thickening. 12. Deconditioning. 1. Right temporal lobe hydrogenous enhancing lesion in the medial portion extending superiorly to the inferior aspect of the right parietal lobe with mass crossing the midline at the level of the posterior portion of the corpus callosum suggestive of malignant neoplasm such as glioblastoma multiforme with large vasogenic edema surrounding the mass with mass effect on the right lateral ventricle and partial effacement of the right basilar cistern and possibility of mild transtentorial subfalcine herniation with heterogenous enhancement of the right temporal lobe mass with heterogenous enhancement of the right temporal mass and effacement of the adjacent dura including the right tentorium, right ventricular compression by the mass lesion. 2. Left lower lobe consolidation. 3. Episodic transient hypertension. 4. Transient hypoxemia. 5. Tachycardia. 6. Leukocytosis with granulocytosis, probably Decadron induced. 7. Trace proteinuria, microscopic hematuria, bacteriuria. 8. Alcohol intoxication with history of alcohol dependence, addiction and nicotine addiction dependence. 1. 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 2. Left lower lobe consolidation. 3. Questionable hypertension. 4. Tachypnea. 5. Microscopic hematuria and rare bacteriuria. 6. History of fall. 7. History of recurrent fall. 8. Alcohol intoxication and history of alcohol and nicotine dependence and history of alcohol and nicotine dependence. 9. 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 10. Alcohol use disorder. 11. Alcohol intoxication. 12. Suicidal ideation. 13. Alcohol use disorder. 14. Left lower lobe consolidation. 15. Active alcohol intoxication. 16. Questionable left lower lobe pneumonia, atelectasis and right middle lobe and left upper lobe nodule. 17. Questionable encephalopathy. 18. History of noncompliance. 19. Deconditioning. 1. Right cerebral hemisphere extensive vasogenic edema with involvement of the right temporal, posterior frontal and parietal lobe; vasogenic edema with right- sided intracranial mass with suspected large mass in the right temporal lobe with additional masses of the right temporal, right posterior frontal lobe with intracranial mass effect and midline shift to the left of 9 mm with effacement of the basilar cistern on the right, effacement and displacement of the right lateral ventricle and diffuse sulcal effacement in the right cerebral hemisphere. 2. Active alcohol intoxication. 3. Questionable encephalopathy with confusional state. 4. Questionable suicidal ideation. 5. Trace proteinuria and microscopic hematuria and trace bacteriuria. 6. Acute alcohol intoxication. 7. Questionable left lower lobe pneumonia, atelectasis with right middle lobe and left upper lobe nodule. 8. History of nicotine and alcohol dependence and addiction. 9. Alcohol dependence and addiction. 10. Gait dysfunction with history of fall. 11. Questionable encephalopathy, etiology undetermined with acute alcohol intoxication. PLAN: 1. At this time, the patient has been ordered serial labs. Current consultation - oncology. 2. Neurosurgery. 3. Neurology. 4. Psychiatry. 5. Radiation oncology. The patient's case is referred to social service coordinator. The patient is currently on IV fluid. MEDICATIONS: 1. The patient is currently on IV fluid, which is changed to 0.9 normal saline at 60 mL an hour. The patient is on 0.9 normal saline at 60 mL an hour. The patient is on Mucomyst nebulizer 20% 4 mL nebulizer mixed with Xopenex nebulizer 0.63 mg every 6 hours. 2. Ativan 2 mg IV q. 2 hours p.r.n. 3. Decadron 6 mg IV q. 6. 4. Doxycycline 100 mg IV q. 12. 5. Heparin 5000 subQ q. 12. 6. Keppra 500 IV q. 12. 7. Lopressor 25 mg twice a day. 8. MiraLax 17 g twice a day. 9. Protonix 40 mg IV daily. 10. Rocephin 1 gram IV daily. IV fluid 0.9 normal saline at 60 mL an hour. The patient has been ordered a repeat chest x-ray PA and lateral for monitoring of left lower lobe consolidation. Chest PT, regular diet, 1:1, and alcohol withdrawal precautions ordered. Head of the bed at 30 degrees, neuro checks, out of bed to chair. Occupational therapy, physical therapy ordered. At present, the patient's family was contacted by neurosurgery, which included the patient's niece, nAnalisa Ashton, at phone number [phone], and the patient 's niece and her sister, Margret and Annalisa were notified about the patient's diagnosis, overall guarded to poor prognosis. The patient's niece ____ the only living relatives. The patient's family and niece have spoken with Dr. Vizcarra, and they were explained about the seriousness of the patient's condition and overall patient's poor prognosis. The patient's neurosurgical intervention is still not decided. At present, the patient is to be continued on the above therapeutic intervention. The patient was seen by the social work manager. Their recommendations were discharge disposition subacute rehab, TCU, home with service, acute rehabilitation. At present, the patient is to be continued on the above therapeutic intervention. The patient will be followed closely with all above specialty. Dictated and electronically signed, not read. Flash Harper MD cc: [id number] TT: 11/01/2016 12:27:54 Confirmation # [id number] Dictation # [id number] MTDD
--- NOTE | 2016-11-01 12:28 | RAD ---
HISTORY: [facility]LL CONSOLIDATION COMPARISON: 10/27/2016 TECHNIQUE: Chest PA and lateral FINDINGS: LUNGS: There is interval improvement in left lower lobe consolidation. There is a stable nodules in the right mid lung and right upper lobe. . There is interval development of discoid atelectasis in the right lower lobe. The lungs are hyperinflated and there is peribronchial thickening with chronic changes in both lungs. PLEURA: No significant pleural effusion identified. No pneumothorax apparent. CARDIOVASCULAR: Normal. OSSEOUS STRUCTURES: No significant abnormalities. VISUALIZED UPPER ABDOMEN: Normal. OTHER FINDINGS: None. IMPRESSION: Improving left lower lobe pneumonia. Stable nodules in the right upper lobe. Dedicated CT chest without contrast is recommended for further characterization. COPD. Interval development of right lower lobe discoid atelectasis.
--- NOTE | 2016-11-01 14:28 | CP.PCM.PN ---
Subjective - Date & Time of Evaluation Date of Evaluation: 11/01/16 Time of Evaluation: 02:20 - Subjective Subjective: Mr Chavez is a gentleman with a newly diagnosed brain mass which is suspicous for a GBM. We saw him in consultation on Tuesday. He is now on a regular floor. In speaking with Mr Chavez, it is apparent that he is still confused. Unfortunately, he has nieces, however they are not health care proxy or POA. We spoke with his niece, Annalisa, who lives in [place] and is not actively involved with her uncle's care. She works in a hospital, and is aware that she has no legal clout to make medical decisions for her uncle. We will reach out to the social work therapist about this situation. He may require medical photographer consent. Objective - Vital Signs/Intake and Output Vital Signs (last 24 hours): Temp Pulse Resp BP Pulse Ox 97.7 F 75 20 140/77 96 11/01/16 06:00 11/01/16 06:00 11/01/16 06:00 11/01/16 06:00 11/01/16 06:00 Intake and Output: 11/01/16 11/01/16 06:59 18:59 Intake Total 660 Output Total 200 Balance 460 - Medications Medications: Current Medications Acetylcysteine (Acetylcysteine 20%) 4 ml IH [id number] DIA Last Admin: 11/01/16 13:31 Dose: 4 ml Dexamethasone (Decadron Inj) 6 mg IVP Q6H DIA Last Admin: 11/01/16 11:10 Dose: 6 mg Heparin Sodium (Porcine) (Heparin) 5,000 units SC Q12 DIA PRN Reason: Protocol Last Admin: 11/01/16 09:28 Dose: 5,000 units Levetiracetam (Keppra 500mg Ivpb) 100 mls @ 400 mls/hr IV Q12 DIA Last Admin: 11/01/16 09:28 Dose: 400 mls/hr Ceftriaxone Sodium (Rocephin 1 Gram Ivpb) 100 mls @ 100 mls/hr IVPB DAILY DIA PRN Reason: Protocol Last Admin: 11/01/16 09:27 Dose: 100 mls/hr Doxycycline Hyclate 100 mg/ (Sodium Chloride) 100 mls @ 100 mls/hr IVPB Q12 DIA PRN Reason: Protocol Last Admin: 11/01/16 09:29 Dose: 100 mls/hr Sodium Chloride (Sodium Chloride 0.9%) 1,000 mls @ 60 mls/hr IV .[id number] [facility] Levalbuterol HCl (Xopenex) 0.63 mg IH [id number] [facility] Last Admin: 11/01/16 13:31 Dose: 0.63 mg Lorazepam (Ativan) 2 mg IVP Q2H PRN; Protocol PRN Reason: Symptoms of alcohol withdrawl Last Admin: 10/31/16 11:59 Dose: 2 mg Metoprolol Tartrate (Lopressor) 25 mg PO BID [facility] Last Admin: 11/01/16 09:28 Dose: 25 mg Pantoprazole Sodium (Protonix Inj) 40 mg IVP DAILY [facility] Last Admin: 11/01/16 09:28 Dose: 40 mg Polyethylene Glycol (Miralax) 17 gm PO BID [facility] Last Admin: 11/01/16 11:14 Dose: 17 gm - Labs Labs: 11/01/16 06:00 11/01/16 06:00 PT 11.1 Seconds (9.9-11.8) 10/28/16 01:13 INR 1.03 (0.93-1.08) 10/28/16 01:13 APTT 27.3 Seconds (23.7-30.8) 10/28/16 01:13
[2016-11-02] MEDS: Levalbuterol 0.63 MG/3 ML Inhal Soln UD IH SCH ×4 (02:30→20:20)
[2016-11-02] MEDS: Acetylcysteine 20% Inhal Soln (4ml) IH SCH ×4 (02:30→20:20)
[2016-11-02] MEDS: Dexamethasone 4 mg/1 ml IVP SCH ×4 (05:45→22:17)
[2016-11-02] MEDS: Sodium Chloride 0.9% 1,000 ML IV SCH ×2 (05:50→17:11)
[2016-11-02] MEDS: cefTRIAXone 1 gm 100 ML IVPB SCH (09:16)
[2016-11-02] MEDS: levETIRAcetam 500mg IVPB 100 ML IV SCH ×2 (09:16→22:26)
[2016-11-02] MEDS: POLYETHYLENE GLYCOL 3350 17 GM/Dose PACKET PO SCH ×2 (09:18→17:11)
--- NOTE | 2016-11-02 14:32 | PN ---
DATE: 11/02/2016 SUBJECTIVE: The patient is sitting up in bed. Denies any complaints. He is still very confused and we are still awaiting a power of civil rights attorney decision from family members. He is diagnosed with a newl y discovered brain mass which is suspicious for GBM, but no surgery has been planned as there is no o ne to give consent. PHYSICAL EXAMINATION: VITAL SIGNS: Stable with a temp of 97.7, pulse of 75, respiratory rate of 20, and a blood pressure 1 40/77. GENERAL: The patient is an elderly pleasant male sitting up in bed in no acute distress. HEAD: Normocephalic, atraumatic. EYES: Pupils equal, round, reactive to light and accommodation. Extraocular muscles are intact. Th ere is some pallor. No icterus is noted. NECK: Supple with no adenopathy, no JVD, no thyromegaly. LUNGS: Clear to auscultation bilaterally with no rales or rhonchi. CARDIOVASCULAR: S1, S2 is heard. ABDOMEN: Positive bowel sounds, soft, nontender, nondistended. No organomegaly is palpated. EXTREMITIES: There is no edema, clubbing, or cyanosis. LABORATORY DATA: Within normal limits. ASSESSMENT AND PLAN: Large brain mass suspicious for glioblastoma multiforme. Await decision on ramon yair once a power of civil rights attorney is obtained. Continue current management. Thank you for the consult. We will follow once we have a tissue diagnosis. Sea Bonner MD cc: [id number] TT: 11/02/2016 14:31:45 Confirmation # [id number] Dictation # [id number]
--- NOTE | 2016-11-02 18:16 | PN ---
DATE: 11/02/2016 The patient is seen in room 372, bed 1. The patient is lying in the bed. The patient is still on 1:1. The patient is alert, awake, oriented to person, place; disoriented to year, date, month, day. The patient has episodic confusion. Overnight nurse's notes were reviewed. The patient was confused intermittently, but cooperative. PHYSICAL EXAMINATION: VITAL SIGNS: T-max 98.3, heart rate 75-89, blood pressure in the last 24 hours ranging from 160/92 to 140/88 to 119/52, respiration 20, O2 sat 96%-100%. INTAKE/OUTPUT: Intake 800, output 500. HEAD: Normocephalic, atraumatic. HEENT: Shows pinkish conjunctivae, anicteric sclerae. No oropharyngeal lesion. NECK: No neck rigidity. CHEST: Symmetrical. LUNGS: Shows positive rhonchi, left more than the right. CARDIOVASCULAR: Shows S1, S2, regular rhythm. ABDOMEN: Soft, positive bowel sounds. GENITALIA: Male. RECTAL: Deferred. EXTREMITIES: Shows no pitting edema, no calf tenderness, no Homans' sign. NEUROLOGIC: The patient is alert, awake, oriented x 2, confused. Disoriented to year, date, month. MUSCULOSKELETAL: Shows a body mass index of 27.2. Cranial nerves II-XII limited. Gait examination is not tested. DIAGNOSTICS: None from today; 11/01 diagnostics reviewed. Repeat chest x-ray was done yesterday, PA and lateral, for evaluation of the left lower lobe pneumonia and consolidation, which shows improvement and stable right middle and right upper lobe nodules with right lower lobe atelectasis with hyperinflation, peribronchial thickening and chronic changes in the lung. IMPRESSION AND PLAN: 1. Suspicious right-sided glioblastoma multiforme of the brain. 2. Resolving left lower lobe pneumonia consolidation. 3. Questionable hypertension. 4. Improving left lower lobe consolidation and pneumonia. 5. Right upper lobe, right middle lung, stable nodules. 6. Right lower lobe atelectasis. 7. Chronic obstructive pulmonary disease with peribronchial thickening. 8. Right lower lobe discoid atelectasis. 9. Hypertension. 10. Steroid-induce leukocytosis and granulocytosis. 11. Steroid-induced hyperglycemia. 12. Trace proteinuria, rare bacteriuria, microscopic hematuria. 13. History of alcohol dependence. 1. Right temporal lobe heterogenous enhancing lesion in the medial portion, extending superiorly into the inferior aspect of the right parietal lobe with mass crossing the midline at the level of the posterior portions of the corpus callosum suggestive of malignant neoplasm. Suggest glioblastoma multiforme with large vasogenic edema surrounding the mass, with mass effect on the right lateral ventricle and partial effacement of the right basilar cistern, and possibility of mild transtentorial subfalcine herniation with heterogenous effacement of the right parietal lobe, parietal lobe mass with heterogenous enhancement of the right temporal mass, and effacement of the adjacent dura including the right tentorium, right ventricular compression by the mass lesion. 2. Questionable hypertension, transient. 3. Leukocytosis with granulocytosis probably Decadron-induced. 4. Trace proteinuria, microscopic hematuria, rare bacteriuria. 5. History of alcohol and nicotine dependence. 6. Acute alcohol intoxication on admission. 7. Deconditioning. 8. Gait dysfunction. 9. Encephalopathy. 10. Most likely right temporoparietal lobe glioblastoma multiforme. 1. Right temporal lobe heterogenous enhancing lesion in the medial portion extending superiorly into the inferior aspect of the right parietal lobe with mass crossing the midline at the level of the posterior portion of the corpus callosum suggestive of malignant neoplasm such as glioblastoma multiforme with large vasogenic edema surrounding the mass with mass effect on the right lateral ventricle and partial effacement of the right basilar cistern and possibility of mild transtentorial subfalcine herniation with heterogenous effacement of the right parietal lobe mass with heterogenous enhancement of the right temporal mass and effacement of the adjacent dura including the right tentorium, right ventricular compression by the mass lesion. 2. Left lower lobe consolidation. 3. Possible hypertension. 4. Transient hypoxemia. 5. Tachycardia. 6. Leukocytosis with granulocytosis, probably Decadron-induced. 7. Trace proteinuria, microscopic hematuria, pyuria, bacteriuria. 8. Alcohol intoxication with history of alcohol dependence addiction and nicotine addiction and dependence. 9. Questionable history of suicidal ideation. 10. Right temporal lobe, medial portion heterogenous enhancing mass lesion extending superiorly into inferior aspect of the right parietal lobe measuring 7 cm x 4.6 cm x 5.5 cm with the mass crossing the midline at the level of the posterior portion of the corpus callosum suggestive of malignant neoplasm such has glioblastoma multiforme with large vasogenic edema surrounding the mass, resulting in mass effect on the right lateral ventricle with 11 mm right to left midline shift, and partial effacement of the right basilar cistern with possibility of mild transtentorial and subfalcine herniation with mild enhancement of the adjacent dura along with the right tentorium with right ventricular compression by the right temporal lobe mass. 11. Left frontal and maxillary sinus mucosal thickening. 12. Deconditioning. 1. Right temporal lobe hydrogenous enhancing lesion in the medial portion extending superiorly to the inferior aspect of the right parietal lobe with mass crossing the midline at the level of the posterior portion of the corpus callosum suggestive of malignant neoplasm such as glioblastoma multiforme with large vasogenic edema surrounding the mass with mass effect on the right lateral ventricle and partial effacement of the right basilar cistern and possibility of mild transtentorial subfalcine herniation with heterogenous enhancement of the right temporal lobe mass with heterogenous enhancement of the right temporal mass and effacement of the adjacent dura including the right tentorium, right ventricular compression by the mass lesion. 2. Left lower lobe consolidation. 3. Episodic transient hypertension. 4. Transient hypoxemia. 5. Tachycardia. 6. Leukocytosis with granulocytosis, probably Decadron induced. 7. Trace proteinuria, microscopic hematuria, bacteriuria. 8. Alcohol intoxication with history of alcohol dependence, addiction and nicotine addiction dependence. 1. 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 2. Left lower lobe consolidation. 3. Questionable hypertension. 4. Tachypnea. 5. Microscopic hematuria and rare bacteriuria. 6. History of fall. 7. History of recurrent fall. 8. Alcohol intoxication and history of alcohol and nicotine dependence and history of alcohol and nicotine dependence. 9. 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 10. Alcohol use disorder. 11. Alcohol intoxication. 12. Suicidal ideation. 13. Alcohol use disorder. 14. Left lower lobe consolidation. 15. Active alcohol intoxication. 16. Questionable left lower lobe pneumonia, atelectasis and right middle lobe and left upper lobe nodule. 17. Questionable encephalopathy. 18. History of noncompliance. 19. Deconditioning. 1. Right cerebral hemisphere extensive vasogenic edema with involvement of the right temporal, posterior frontal and parietal lobe; vasogenic edema with right- sided intracranial mass with suspected large mass in the right temporal lobe with additional masses of the right temporal, right posterior frontal lobe with intracranial mass effect and midline shift to the left of 9 mm with effacement of the basilar cistern on the right, effacement and displacement of the right lateral ventricle and diffuse sulcal effacement in the right cerebral hemisphere. 2. Active alcohol intoxication. 3. Questionable encephalopathy with confusional state. 4. Questionable suicidal ideation. 5. Trace proteinuria and microscopic hematuria and trace bacteriuria. 6. Acute alcohol intoxication. 7. Questionable left lower lobe pneumonia, atelectasis with right middle lobe and left upper lobe nodule. 8. History of nicotine and alcohol dependence and addiction. 9. Alcohol dependence and addiction. 10. Gait dysfunction with history of fall. 11. Questionable encephalopathy, etiology undetermined with acute alcohol intoxication. PLAN: At this time, we are awaiting decisions regarding power of defense attorney, medical proxy and advanced directive by the patient. CURRENT MEDICATIONS: 1. Mucomyst nebulizer 20% 4 mL q. 6 hours with Xopenex nebulizer 0.63 mg q. 6 hours. 2. Ativan 2 mg IV q. 2 p.r.n. 3. Decadron 6 mg IV q. 6. 4. Vibramycin 100 mg IV q. 12. 5. Heparin 5000 subQ q. 12. 6. Keppra 500 mg IV q. 12. 7. Lopressor 25 mg twice a day. 8. MiraLax 17 grams twice a day. 9. Protonix 40 mg IV daily. 10. Rocephin 1 gram IV daily. IV fluid 0.9 is discontinued. Chest PT is ordered. Regular diet. Out of bed to chair. Physical therapy, occupational therapy ordered. The patient is closely monitored by all subspecialties. The patient's overall prognosis is guarded to poor. The patient's case is referred to renal social worker for discharge planning. The patient is to be continued on the above therapeutic intervention. Overall, prognosis is guarded to poor. Dictated, electronically signed, not read. Flash Harper MD cc: [id number] TT: 11/02/2016 18:15:02 Confirmation # [id number] Dictation # [id number] paul ABDUL
[2016-11-03] MEDS: Levalbuterol 0.63 MG/3 ML Inhal Soln UD IH SCH ×4 (01:32→19:40)
[2016-11-03] MEDS: Acetylcysteine 20% Inhal Soln (4ml) IH SCH ×4 (01:32→19:40)
[2016-11-03] MEDS: Dexamethasone 4 mg/1 ml IVP SCH ×4 (05:34→23:29)
[2016-11-03 07:47] LABS: ADD MANUAL DIFF? NO
[2016-11-03 07:52] LABS: BASO # 0.02 K/mm3 (0.0-2.0); BASO % 0.1 % (0.0-3.0); EOS % 0.1 % (1.5-5.0); GRAN # 12.36 (1.4-6.5); GRAN % 85.9 % (50.0-68.0); HEMATOCRIT 45.2 % (42.0-52.0); LYMPH # 0.9 (1.2-3.4); MEAN CELL VOLUME 93.8 fL (80.0-105.0); MEAN CORPUSCULAR HEMOGLOBIN 32.6 pg (25.0-35.0); MEAN CORPUSCULAR HGB CONC 34.7 g/dl (31.0-37.0); MEAN PLATELET VOLUME 11.2 fl (7.0-11.0); MONO # 1.1 (0.1-0.6); MONO % 7.9 % (1.0-6.0); PLATELET COUNT 272 10^3/uL (120.0-450.0); RED CELL DISTRIBUTION WIDTH 13.3 % (11.5-14.5); WHITE BLOOD COUNT 14.4 10^3/ul (4.5-11.0)
[2016-11-03 08:16] LABS: ALB/GLOB RATIO 1.1 (1.1-1.8); ALKALINE PHOSPHATASE 56 U/L (38-133); ALT/SGPT 54 U/L (7-56); AST/SGOT 29 U/L (15-59); BILIRUBIN,DIRECT 0.4 mg/dL (0.0-0.4); BILIRUBIN,TOTAL 0.8 mg/dL (0.2-1.3); BLOOD UREA NITROGEN 25 mg/dL (7-21); CALCIUM 8.9 mg/dL (8.4-10.5); CARBON DIOXIDE 25 mmol/L (21-33); CHLORIDE 98 mmol/L (98-107); GFR AFRICAN-AMERICAN > 60; GLUCOSE,RANDOM 112 mg/dL (70-110); MAGNESIUM 2.4 mg/dL (1.7-2.2); SODIUM 132 mmol/L (132-148); TOTAL PROTEIN 7.4 g/dL (5.8-8.3)
[2016-11-03] MEDS: levETIRAcetam 500mg IVPB 100 ML IV SCH ×2 (10:19→21:20)
[2016-11-03] MEDS: POLYETHYLENE GLYCOL 3350 17 GM/Dose PACKET PO SCH (10:20)
[2016-11-03] MEDS: cefTRIAXone 1 gm 100 ML IVPB SCH (12:00)
--- NOTE | 2016-11-03 12:24 | PN ---
DATE: 11/03/2016 FOLLOWUP NOTE Shortly, the patient is a 70-year-old male, not known previous psychiatric history. The pa jonnie has history of alcohol abuse. The patient was admitted in CCU initially, status post fall, and the patient was intoxicated back then. Psych consult initially was called for evaluation of possibl e suicidal ideations. The patient lost his job prior to coming to the hospital. Medical team found that patient has brain tumor. This senior medical writer suggested to have POA in order to make decisions about ramon yair, as well as about advanced directives in the future. This senior medical writer will sign off because the koffi ent was not suicidal and was not homicidal, was not psychotic. Psych team was called back again brady use the patient has periods of confusion, as well as the patient was on 1:1. This senior medical writer followed up the patient today at the morning time. The patient presented to be alert. T he patient knows that he is in the hospital, knows the year, but does not know what is the date. The patient thought that it is the beginning of September. The patient denied being confused. The patient reported that his mood is good. Denied thoughts of harming himself or others. Denied intent or plan . The patient denied any psychotic symptoms. Denied visual, auditory, or tactile hallucinations, de nied paranoid ideations. As per report from the nursing staff, the patient has episodes of confusion . The majority of the time, it is overnight. Most likely, this is sundowning syndrome. From the ca pacity to make decision about POA, from this senior medical writer's perspective, the patient has capacity to do so. The patient appointed his friend, Suzan, to be his POA for medical issues. The patient reported t nellie Suzan has experience of taking care of her father. The patient reported that he could trust her . At the same time, she was helping the patient to do grocery shopping, and [facility]. The patient does not have any family members who could help him to make decisions in e future. In regards of medical diagnoses of possible glioblastoma multiforme of the brain, the patient was not able to process that information. The patient has just basic understanding that something is wrong with his brain, but was not able to process information what is the next step. This senior medical writer is sure t hat medical team explained to the patient multiple times about diagnosis and about what should be don e for him, but the patient was not able to repeat them. VITAL SIGNS: This senior medical writer reviewed vital signs. Vital signs seem to be stable, but blood pressure is elevated 155/84. MEDICATIONS: Reviewed. The patient is on antibiotics for pneumonia. The patient also is on heparin , levalbuterol. The patient is on Keppra, Ativan 2 mg IV push q. 2 hours as needed for alcohol withd carline. The patient is on Lopressor 25 mg twice a day, Protonix, and MiraLax. LABORATORY DATA: Reviewed. The patient had episodes of leukocytosis. From today, the patient has W BC cells of 14.4, granulocytes of 12.36. Coagulation reviewed. Chemistry reviewed. MENTAL STATUS EXAMINATION: The patient presented to be alert, oriented in place, self, not in time. The patient knows what is the year. Intermittent eye contact. Speech was normal rate, tone, qualit y, and quantity. Mood described as "I feel fine." Affect was reactive, mood congruent. Thought pro cess seems to be goal directed. Thought content: The patient denied visual, auditory, or tactile santiago llucinations. Denied paranoid ideations. The patient denied thoughts of harming himself or others. Denied intent or plan. The patient has episodes of confusion. Most likely, it is related to brain tumor, as well as possible delirium. Insight and judgment are limited. Impulses are well-controlled . IMPRESSION: The patient has history of alcohol use disorder. The patient was newly diagnosed with p ossible suspicious right-sided glioblastoma multiforme. The patient also has pneumonia consolidation . PLAN: Continue current management. From this senior medical writer's perspective, the patient has capacity to appo int POA. The patient was able to explain his reasons why he wants his friend, Suzan, to be his POA. The patient does not have any family member. In regards of the mood, seems to be stable. In regards of making decisions about future surgery and about future treatment plan, the patient has no capacity to do so because the patient was not able to understand the diagnosis of the brain tumor and possible treatment options. The patient was not abl e to repeat to this senior medical writer back. The patient needs to sign POA papers anytime today. In regards of confusion, it could be related to alcohol withdrawal or tumor in his brain. The patien t has no signs of aggression or agitation. This senior medical writer discontinued 1:1 yesterday. The patient does not have any aggressive or agitated or psychotic outbursts. This senior medical writer will follow up with this [facility] as needed. Case was discussed with the nursing staff. Should you have any questions, give me a call back. Thank you very much for letting me participate in the care of your patient. Victoria Veronica MD cc: [phone] TT: 11/03/2016 12:24:12 Confirmation # [id number] Dictation # [id number] jn
--- NOTE | 2016-11-03 14:45 | PN ---
DATE: 11/03/2016 The patient is out of bed to chair in room 372, bed 2. The patient is alert, awake, oriented x 3, to person, place, time, year, date, month. The patient is able to stand up independently. PHYSICAL EXAMINATION: VITAL SIGNS: T-max, patient is afebrile, heart rate 77-89, blood pressure is 165/84, 119/52, 160/90, 149/88, respirations 20, O2 sat 98%. HEENT: Normocephalic, atraumatic. Shows pink conjunctivae, anicteric sclerae. No oropharyngeal lesion. NECK: No neck rigidity. CHEST: Kyphosis. LUNGS: Shows positive rhonchi, left more than the right. CARDIOVASCULAR: S1, S2. Regular rhythm. ABDOMEN: Soft, positive bowel sounds. GENITALIA: Male. RECTAL: Deferred. EXTREMITIES: Shows no pitting edema, no calf tenderness, no Homans' sign. NEUROLOGIC: The patient is alert, awake. MUSCULOSKELETAL: Shows a body mass index of 27. Cranial nerves II-XII limited. GAIT: The patient is able to stand up from the chair independently. VASCULAR: Palpable pulses. DIAGNOSTICS: 11/01, WBC 14.4, hemoglobin and hematocrit is 15.7 and 45.2, platelets 272, granulocytes 86% segs. Sodium 132, potassium 4.0, chloride 98, CO2 of 25, anion gap 13, BUN 25, creatinine 0.8, GFR greater than 60, glucose 112, magnesium 2.4. LFTs are normal. Repeat chest x-ray from 11/01 was noted. IMPRESSION: 1. Suspicious right-sided glioblastoma multiforme of the brain. 2. Resolving left lower lobe pneumonia consolidation. 3. Questionable and possible hypertension. 4. History of suicidal ideation. 5. Alcohol and nicotine dependence and alcohol intoxication. 6. History of alcohol abuse. 7. Gait dysfunction status post fall. 8. Suicidal ideation. 9. Possible sundowning syndrome. 10. History of alcohol disorder. 11. Possible alcohol withdrawal. 1. Suspicious right-sided glioblastoma multiforme of the brain. 2. Resolving left lower lobe pneumonia consolidation. 3. Questionable hypertension. 4. Improving left lower lobe consolidation and pneumonia. 5. Right upper lobe, right middle lung, stable nodules. 6. Right lower lobe atelectasis. 7. Chronic obstructive pulmonary disease with peribronchial thickening. 8. Right lower lobe discoid atelectasis. 9. Hypertension. 10. Steroid-induce leukocytosis and granulocytosis. 11. Steroid-induced hyperglycemia. 12. Trace proteinuria, rare bacteriuria, microscopic hematuria. 13. History of alcohol dependence. 1. Right temporal lobe heterogenous enhancing lesion in the medial portion, extending superiorly into the inferior aspect of the right parietal lobe with mass crossing the midline at the level of the posterior portions of the corpus callosum suggestive of malignant neoplasm. Suggest glioblastoma multiforme with large vasogenic edema surrounding the mass, with mass effect on the right lateral ventricle and partial effacement of the right basilar cistern, and possibility of mild transtentorial subfalcine herniation with heterogenous effacement of the right parietal lobe, parietal lobe mass with heterogenous enhancement of the right temporal mass, and effacement of the adjacent dura including the right tentorium, right ventricular compression by the mass lesion. 2. Questionable hypertension, transient. 3. Leukocytosis with granulocytosis probably Decadron-induced. 4. Trace proteinuria, microscopic hematuria, rare bacteriuria. 5. History of alcohol and nicotine dependence. 6. Acute alcohol intoxication on admission. 7. Deconditioning. 8. Gait dysfunction. 9. Encephalopathy. 10. Most likely right temporoparietal lobe glioblastoma multiforme. 1. Right temporal lobe heterogenous enhancing lesion in the medial portion extending superiorly into the inferior aspect of the right parietal lobe with mass crossing the midline at the level of the posterior portion of the corpus callosum suggestive of malignant neoplasm such as glioblastoma multiforme with large vasogenic edema surrounding the mass with mass effect on the right lateral ventricle and partial effacement of the right basilar cistern and possibility of mild transtentorial subfalcine herniation with heterogenous effacement of the right parietal lobe mass with heterogenous enhancement of the right temporal mass and effacement of the adjacent dura including the right tentorium, right ventricular compression by the mass lesion. 2. Left lower lobe consolidation. 3. Possible hypertension. 4. Transient hypoxemia. 5. Tachycardia. 6. Leukocytosis with granulocytosis, probably Decadron-induced. 7. Trace proteinuria, microscopic hematuria, pyuria, bacteriuria. 8. Alcohol intoxication with history of alcohol dependence addiction and nicotine addiction and dependence. 9. Questionable history of suicidal ideation. 10. Right temporal lobe, medial portion heterogenous enhancing mass lesion extending superiorly into inferior aspect of the right parietal lobe measuring 7 cm x 4.6 cm x 5.5 cm with the mass crossing the midline at the level of the posterior portion of the corpus callosum suggestive of malignant neoplasm such has glioblastoma multiforme with large vasogenic edema surrounding the mass, resulting in mass effect on the right lateral ventricle with 11 mm right to left midline shift, and partial effacement of the right basilar cistern with possibility of mild transtentorial and subfalcine herniation with mild enhancement of the adjacent dura along with the right tentorium with right ventricular compression by the right temporal lobe mass. 11. Left frontal and maxillary sinus mucosal thickening. 12. Deconditioning. 1. Right temporal lobe hydrogenous enhancing lesion in the medial portion extending superiorly to the inferior aspect of the right parietal lobe with mass crossing the midline at the level of the posterior portion of the corpus callosum suggestive of malignant neoplasm such as glioblastoma multiforme with large vasogenic edema surrounding the mass with mass effect on the right lateral ventricle and partial effacement of the right basilar cistern and possibility of mild transtentorial subfalcine herniation with heterogenous enhancement of the right temporal lobe mass with heterogenous enhancement of the right temporal mass and effacement of the adjacent dura including the right tentorium, right ventricular compression by the mass lesion. 2. Left lower lobe consolidation. 3. Episodic transient hypertension. 4. Transient hypoxemia. 5. Tachycardia. 6. Leukocytosis with granulocytosis, probably Decadron induced. 7. Trace proteinuria, microscopic hematuria, bacteriuria. 8. Alcohol intoxication with history of alcohol dependence, addiction and nicotine addiction dependence. 1. 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 2. Left lower lobe consolidation. 3. Questionable hypertension. 4. Tachypnea. 5. Microscopic hematuria and rare bacteriuria. 6. History of fall. 7. History of recurrent fall. 8. Alcohol intoxication and history of alcohol and nicotine dependence and history of alcohol and nicotine dependence. 9. 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 10. Alcohol use disorder. 11. Alcohol intoxication. 12. Suicidal ideation. 13. Alcohol use disorder. 14. Left lower lobe consolidation. 15. Active alcohol intoxication. 16. Questionable left lower lobe pneumonia, atelectasis and right middle lobe and left upper lobe nodule. 17. Questionable encephalopathy. 18. History of noncompliance. 19. Deconditioning. 1. Right cerebral hemisphere extensive vasogenic edema with involvement of the right temporal, posterior frontal and parietal lobe; vasogenic edema with right- sided intracranial mass with suspected large mass in the right temporal lobe with additional masses of the right temporal, right posterior frontal lobe with intracranial mass effect and midline shift to the left of 9 mm with effacement of the basilar cistern on the right, effacement and displacement of the right lateral ventricle and diffuse sulcal effacement in the right cerebral hemisphere. 2. Active alcohol intoxication. 3. Questionable encephalopathy with confusional state. 4. Questionable suicidal ideation. 5. Trace proteinuria and microscopic hematuria and trace bacteriuria. 6. Acute alcohol intoxication. 7. Questionable left lower lobe pneumonia, atelectasis with right middle lobe and left upper lobe nodule. 8. History of nicotine and alcohol dependence and addiction. 9. Alcohol dependence and addiction. 10. Gait dysfunction with history of fall. 11. Questionable encephalopathy, etiology undetermined with acute alcohol intoxication. PLAN: At this time, we are awaiting the patient and the foster care social worker's input regarding healthcare proxy and power of insurance defense attorney. The patient has been ordered serial labs. CURRENT CONSULTATIONS: Hematology/oncology, neurosurgery, neurology, psychiatry , radiation oncology, referral to social director, case management. CURRENT MEDICATIONS: Mucomyst nebulizer 20% 4 mL q. 6 hours, Ativan 2 mg IV q. 2 p.r.n. Decadron 6 mg IV q. 6, doxycycline 100 mg IV q. 12, heparin 5000 subQ q. 12 for DVT prophylaxis, Keppra 500 mg twice a day, Lopressor 25 mg twice a day, MiraLax 17 g twice a day, Protonix 40 mg IV daily, Rocephin 1 gram IV daily , Xopenex nebulizer 0.63 q. 6. Chest PT ordered. Regular diet ordered. Out of bed. Physical therapy, occupational therapy ordered. Referral to social service is ordered. At present, we are awaiting further decision about power of insurance defense attorney, healthcare proxy, advanced directive. According to psychiatry, the patient has the capacity to make decisions about healthcare proxy, advanced directive and upon that, the patient will be referred back to neurosurgery for surgical intervention if patient agrees and if the patient's power of insurance defense attorney agrees and then followed up with oncological and radiation oncology recommendation and treatment if indicated. Flash Harper MD cc: [id number] TT: 11/03/2016 14:45:09 Confirmation # [id number] Dictation # [id number] cn CHANTELL
[2016-11-04] MEDS: Acetylcysteine 20% Inhal Soln (4ml) IH SCH ×4 (02:04→19:53)
[2016-11-04] MEDS: Levalbuterol 0.63 MG/3 ML Inhal Soln UD IH SCH ×4 (02:04→19:54)
[2016-11-04] MEDS: Dexamethasone 4 mg/1 ml IVP SCH ×4 (05:59→23:34)
--- NOTE | 2016-11-04 10:31 | RAD ---
HISTORY: Left lower lobe consolidation/atelectasis. COMPARISON: November 01, 2016. TECHNIQUE: Chest PA and lateral FINDINGS: LUNGS: No active pulmonary disease. PLEURA: No significant pleural effusion identified. No pneumothorax apparent. CARDIOVASCULAR: No radiographic findings to suggest acute or significant cardiovascular disease. OSSEOUS STRUCTURES: No significant abnormalities. VISUALIZED UPPER ABDOMEN: Normal. OTHER FINDINGS: None. IMPRESSION: No active disease. No significant interval change compared to the prior examination(s).
[2016-11-04] MEDS: POLYETHYLENE GLYCOL 3350 17 GM/Dose PACKET PO SCH ×2 (10:36→17:17)
[2016-11-04] MEDS: cefTRIAXone 1 gm 100 ML IVPB SCH (10:36)
[2016-11-04] MEDS: levETIRAcetam 500mg IVPB 100 ML IV SCH ×2 (10:36→22:16)
--- NOTE | 2016-11-04 11:13 | CP.PCM.PN ---
Subjective - Date & Time of Evaluation Date of Evaluation: 11/04/16 Time of Evaluation: 10:00 - Subjective Subjective: Awake, oriented, attention span better than in past meetings. Offers no complaints Objective - Vital Signs/Intake and Output Vital Signs (last 24 hours): Temp Pulse Resp BP Pulse Ox 97.8 F 77 20 160/76 H 96 11/04/16 06:00 11/04/16 10:35 11/04/16 06:00 11/04/16 10:35 11/04/16 06:00 Intake and Output: 11/04/16 11/04/16 06:59 18:59 Intake Total 780 Output Total 500 Balance 280 - Medications Medications: Current Medications Acetylcysteine (Acetylcysteine 20%) 4 ml IH [id number] [facility] Last Admin: 11/04/16 07:43 Dose: 4 ml Clonazepam (Klonopin) 0.25 mg PO BID DIA PRN Reason: Protocol Dexamethasone (Decadron Inj) 6 mg IVP Q6H DIA Last Admin: 11/04/16 05:59 Dose: 6 mg Heparin Sodium (Porcine) (Heparin) 5,000 units SC Q12 DIA PRN Reason: Protocol Last Admin: 11/04/16 10:35 Dose: 5,000 units Levetiracetam (Keppra 500mg Ivpb) 100 mls @ 400 mls/hr IV Q12 DIA Last Admin: 11/04/16 10:36 Dose: 400 mls/hr Ceftriaxone Sodium (Rocephin 1 Gram Ivpb) 100 mls @ 100 mls/hr IVPB DAILY DIA PRN Reason: Protocol Last Admin: 11/04/16 10:36 Dose: 100 mls/hr Doxycycline Hyclate 100 mg/ (Sodium Chloride) 100 mls @ 100 mls/hr IVPB Q12 DIA PRN Reason: Protocol Last Admin: 11/03/16 22:45 Dose: 100 mls/hr Levalbuterol HCl (Xopenex) 0.63 mg IH [id number] [facility] Last Admin: 11/04/16 07:43 Dose: 0.63 mg Losartan Potassium (Cozaar) 50 mg PO DAILY [facility] Last Admin: 11/04/16 10:35 Dose: 50 mg Metoprolol Tartrate (Lopressor) 25 mg PO BID [facility] Last Admin: 11/04/16 10:36 Dose: 25 mg Pantoprazole Sodium (Protonix Inj) 40 mg IVP DAILY [facility] Last Admin: 11/04/16 10:36 Dose: 40 mg Polyethylene Glycol (Miralax) 17 gm PO BID [facility] Last Admin: 11/04/16 10:36 Dose: 17 gm - Labs Labs: 11/03/16 07:30 11/03/16 07:30 PT 11.1 Seconds (9.9-11.8) 10/28/16 01:13 INR 1.03 (0.93-1.08) 10/28/16 01:13 APTT 27.3 Seconds (23.7-30.8) 10/28/16 01:13 - Constitutional Appears: No Acute Distress, Chronically Ill - Eye Exam Eye Exam: Normal appearance, PERRL - ENT Exam ENT Exam: Mucous Membranes Moist - Respiratory Exam Respiratory Exam: Decreased Breath Sounds, NORMAL BREATHING PATTERN - Cardiovascular Exam Cardiovascular Exam: REGULAR RHYTHM, +S1, +S2 - GI/Abdominal Exam GI & Abdominal Exam: Soft, Normal Bowel Sounds - Extremities Exam Extremities Exam: Normal Capillary Refill, Normal Inspection - Back Exam Back Exam: NORMAL INSPECTION - Neurological Exam Neurological Exam: Alert - Skin Skin Exam: Dry, Pallor Assessment and Plan - Assessment and Plan (Free Text) Assessment: 70 year old male admitted s/p mechanical fall at home,s/p ETOH intoxication, brain mass likely GBM. Patient has just returned from x ray. He is alert and oriented to place and self. He remembers my name and is able to remember some of our previous conversations. His friend Alecia is at bedside as is Diandra PETERS. I explained in detail the purpose of appointing a financial POA as well as health care proxy. Mr. Chavez affirms that he is ready to do so and has chosen his friend Alecia. We had lengthy discussion regarding goals of care. Mr Chavez understands that with out surgical intervention his tumor will continue to grow and that he will no longer be able to make decisions or care for himself. He acknowledged this fact. The patient states that if his medical condition were to worsen and became irreversible he would not want CPR, intubation or permanent feeding tube placement. Alecia also verbalizes understanding of these facts and his wishes to make her POA and health care proxy. She is willing to take on this responsibility. When asked if she would be able to care for the patient on a multimedia editor basis, she indicated that she could not do so. SW discussed options for TINA with possibility of transitioning to an assisted living situation. SW explained process to patient and friend, Alecia. Plan: Referred to SW for completion of POA/Advance care plan Continue current medical management. Will assist patient/POA with advance care planning.
--- NOTE | 2016-11-04 11:31 | PN ---
DATE: 11/04/2016 The patient is seen in room 372, bed 1. The patient is out of bed to chair. The patient is alert, awake, oriented to person, place, and time. The patient follows command. The patient is able to ambulate without assistance. The patient was noted to have significant upper extremity tremors. The patient had slightly unsteady gait, but able to ambulate without assistance. Overnight nurse's notes were reviewed. The patient overnight was without any ____. PHYSICAL EXAMINATION: VITAL SIGNS: T-max 97.8, pulse 77, blood pressure ranging in the last 24 hours 160/90, 165/84, 170/70, 160/76, respirations 20, O2 sat 96%. HEAD: Normocephalic, atraumatic. HEENT: Shows pink conjunctivae, anicteric sclerae. No oropharyngeal lesion. NECK: No neck rigidity. CHEST: Kyphosis. LUNGS: Show positive rhonchi, left more than the right. CARDIOVASCULAR: Shows S1, S2, regular rhythm. ABDOMEN: Soft, positive bowel sounds. GENITALIA: Male. RECTAL: Deferred. EXTREMITIES: Show no pitting edema, no calf tenderness, no Homans' sign. NEUROLOGIC: The patient is alert, awake, responsive, oriented to person, place and time. GAIT: Independent. Positive upper extremity tremors noted. MUSCULOSKELETAL: Shows a body mass index of 27.2. DIAGNOSTICS: None from 11/04. 11/03 diagnostics were reviewed. MRSA nondetected. The patient had a chest x-ray done today which was reviewed. Chest x-ray PA and lateral, was done to compare for left lower lobe consolidation and atelectasis which shows resolution of the previous findings. IMPRESSION: 1. Suspicious right-sided brain mass suspicious for glioblastoma multiforme of the brain. 2. Resolving left lower lobe pneumonia. 3. Hypertension. 4. Upper extremity tremors, etiology undetermined. 5. History of alcohol and nicotine dependence. 6. History of suicidal ideation. 7. Gait dysfunction and deconditioning. 8. History of gait dysfunction and recurrent falls. 9. Possible alcohol withdrawal. 1. Suspicious right-sided glioblastoma multiforme of the brain. 2. Resolving left lower lobe pneumonia consolidation. 3. Questionable and possible hypertension. 4. History of suicidal ideation. 5. Alcohol and nicotine dependence and alcohol intoxication. 6. History of alcohol abuse. 7. Gait dysfunction status post fall. 8. Suicidal ideation. 9. Possible sundowning syndrome. 10. History of alcohol disorder. 11. Possible alcohol withdrawal. 1. Suspicious right-sided glioblastoma multiforme of the brain. 2. Resolving left lower lobe pneumonia consolidation. 3. Questionable hypertension. 4. Improving left lower lobe consolidation and pneumonia. 5. Right upper lobe, right middle lung, stable nodules. 6. Right lower lobe atelectasis. 7. Chronic obstructive pulmonary disease with peribronchial thickening. 8. Right lower lobe discoid atelectasis. 9. Hypertension. 10. Steroid-induce leukocytosis and granulocytosis. 11. Steroid-induced hyperglycemia. 12. Trace proteinuria, rare bacteriuria, microscopic hematuria. 13. History of alcohol dependence. 1. Right temporal lobe heterogenous enhancing lesion in the medial portion, extending superiorly into the inferior aspect of the right parietal lobe with mass crossing the midline at the level of the posterior portions of the corpus callosum suggestive of malignant neoplasm. Suggest glioblastoma multiforme with large vasogenic edema surrounding the mass, with mass effect on the right lateral ventricle and partial effacement of the right basilar cistern, and possibility of mild transtentorial subfalcine herniation with heterogenous effacement of the right parietal lobe, parietal lobe mass with heterogenous enhancement of the right temporal mass, and effacement of the adjacent dura including the right tentorium, right ventricular compression by the mass lesion. 2. Questionable hypertension, transient. 3. Leukocytosis with granulocytosis probably Decadron-induced. 4. Trace proteinuria, microscopic hematuria, rare bacteriuria. 5. History of alcohol and nicotine dependence. 6. Acute alcohol intoxication on admission. 7. Deconditioning. 8. Gait dysfunction. 9. Encephalopathy. 10. Most likely right temporoparietal lobe glioblastoma multiforme. 1. Right temporal lobe heterogenous enhancing lesion in the medial portion extending superiorly into the inferior aspect of the right parietal lobe with mass crossing the midline at the level of the posterior portion of the corpus callosum suggestive of malignant neoplasm such as glioblastoma multiforme with large vasogenic edema surrounding the mass with mass effect on the right lateral ventricle and partial effacement of the right basilar cistern and possibility of mild transtentorial subfalcine herniation with heterogenous effacement of the right parietal lobe mass with heterogenous enhancement of the right temporal mass and effacement of the adjacent dura including the right tentorium, right ventricular compression by the mass lesion. 2. Left lower lobe consolidation. 3. Possible hypertension. 4. Transient hypoxemia. 5. Tachycardia. 6. Leukocytosis with granulocytosis, probably Decadron-induced. 7. Trace proteinuria, microscopic hematuria, pyuria, bacteriuria. 8. Alcohol intoxication with history of alcohol dependence addiction and nicotine addiction and dependence. 9. Questionable history of suicidal ideation. 10. Right temporal lobe, medial portion heterogenous enhancing mass lesion extending superiorly into inferior aspect of the right parietal lobe measuring 7 cm x 4.6 cm x 5.5 cm with the mass crossing the midline at the level of the posterior portion of the corpus callosum suggestive of malignant neoplasm such has glioblastoma multiforme with large vasogenic edema surrounding the mass, resulting in mass effect on the right lateral ventricle with 11 mm right to left midline shift, and partial effacement of the right basilar cistern with possibility of mild transtentorial and subfalcine herniation with mild enhancement of the adjacent dura along with the right tentorium with right ventricular compression by the right temporal lobe mass. 11. Left frontal and maxillary sinus mucosal thickening. 12. Deconditioning. 1. Right temporal lobe hydrogenous enhancing lesion in the medial portion extending superiorly to the inferior aspect of the right parietal lobe with mass crossing the midline at the level of the posterior portion of the corpus callosum suggestive of malignant neoplasm such as glioblastoma multiforme with large vasogenic edema surrounding the mass with mass effect on the right lateral ventricle and partial effacement of the right basilar cistern and possibility of mild transtentorial subfalcine herniation with heterogenous enhancement of the right temporal lobe mass with heterogenous enhancement of the right temporal mass and effacement of the adjacent dura including the right tentorium, right ventricular compression by the mass lesion. 2. Left lower lobe consolidation. 3. Episodic transient hypertension. 4. Transient hypoxemia. 5. Tachycardia. 6. Leukocytosis with granulocytosis, probably Decadron induced. 7. Trace proteinuria, microscopic hematuria, bacteriuria. 8. Alcohol intoxication with history of alcohol dependence, addiction and nicotine addiction dependence. 1. 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 2. Left lower lobe consolidation. 3. Questionable hypertension. 4. Tachypnea. 5. Microscopic hematuria and rare bacteriuria. 6. History of fall. 7. History of recurrent fall. 8. Alcohol intoxication and history of alcohol and nicotine dependence and history of alcohol and nicotine dependence. 9. 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 10. Alcohol use disorder. 11. Alcohol intoxication. 12. Suicidal ideation. 13. Alcohol use disorder. 14. Left lower lobe consolidation. 15. Active alcohol intoxication. 16. Questionable left lower lobe pneumonia, atelectasis and right middle lobe and left upper lobe nodule. 17. Questionable encephalopathy. 18. History of noncompliance. 19. Deconditioning. 1. Right cerebral hemisphere extensive vasogenic edema with involvement of the right temporal, posterior frontal and parietal lobe; vasogenic edema with right- sided intracranial mass with suspected large mass in the right temporal lobe with additional masses of the right temporal, right posterior frontal lobe with intracranial mass effect and midline shift to the left of 9 mm with effacement of the basilar cistern on the right, effacement and displacement of the right lateral ventricle and diffuse sulcal effacement in the right cerebral hemisphere. 2. Active alcohol intoxication. 3. Questionable encephalopathy with confusional state. 4. Questionable suicidal ideation. 5. Trace proteinuria and microscopic hematuria and trace bacteriuria. 6. Acute alcohol intoxication. 7. Questionable left lower lobe pneumonia, atelectasis with right middle lobe and left upper lobe nodule. 8. History of nicotine and alcohol dependence and addiction. 9. Alcohol dependence and addiction. 10. Gait dysfunction with history of fall. 11. Questionable encephalopathy, etiology undetermined with acute alcohol intoxication. PLAN: At this time, the patient has been ordered labs. The patient is currently being followed by oncology, neurosurgery, neurology, psychiatry and radiation oncology. The patient's case referred to oncology social work, case management. CURRENT MEDICATIONS: 1. Mucomyst 20% 4 mL nebulizer every 6 hours with Xopenex nebulizer 0.63 mg. 2. The patient's Ativan 2 mg IV q. 2 hours p.r.n. has been stopped. 3. The patient is on Cozaar 50 mg daily. 4. Decadron 6 mg IV q. 6. 5. Vibramycin 100 mg IV q. 12. 6. Heparin 5000 subQ q. 12. 7. Keppra 500 IV q. 12. 8. Klonopin started at 0.25 b.i.d. 9. Lopressor 25 twice a day. 10. MiraLax 17 g twice a day. 11. Protonix 40 mg daily. 12. Rocephin 1 gram IV daily. 13. Xopenex nebulizer 0.63 mg q. 6 hours. Chest PT ordered. The patient is on regular diet, out of bed. Neuro checks. The patient will be ordered SCDs, AMEYA stockings. Occupational therapy, physical therapy ordered. The patient's labs will be followed. We are still awaiting assignment of healthcare proxy, power of knee and further decision making from the patient regarding surgical options for brain mass. Overall, patient's prognosis is guarded to poor. Dictated and electronically signed, not read. Flash Harper MD cc: [id number] TT: 11/04/2016 11:30:45 Confirmation # [id number] Dictation # [id number] tn MTDD
--- NOTE | 2016-11-04 11:59 | CP.PCM.PN ---
Subjective - Date & Time of Evaluation Date of Evaluation: 11/04/16 Time of Evaluation: 11:55 - Subjective Subjective: Mr Chavez is a 70 year old male with a right temporal mass. He was evaluated again by psychiatry and deemed competent to make decisions. He relies on his friends for support. We met with him and Alecia today. They stated that they are agreeing to the brain biopsy. He is aware that this is most likely a primary brain tumor, GBM based on the radiographic findings. Once a biopsy is obtained for pathology, we would recommend chemoradiation. We spoke to him and his friend about the radiation therapy including the risks and benefits. Dr Vizcarra is aware of the patient's wishes, and will be meeting with him to discuss this further. Objective - Vital Signs/Intake and Output Vital Signs (last 24 hours): Temp Pulse Resp BP Pulse Ox 97.8 F 77 20 160/76 H 96 11/04/16 06:00 11/04/16 10:35 11/04/16 06:00 11/04/16 10:35 11/04/16 06:00 Intake and Output: 11/04/16 11/04/16 06:59 18:59 Intake Total 780 Output Total 500 Balance 280 - Medications Medications: Current Medications Acetylcysteine (Acetylcysteine 20%) 4 ml IH [id number] DIA Last Admin: 11/04/16 07:43 Dose: 4 ml Clonazepam (Klonopin) 0.25 mg PO BID DIA PRN Reason: Protocol Dexamethasone (Decadron Inj) 6 mg IVP Q6H DIA Last Admin: 11/04/16 05:59 Dose: 6 mg Heparin Sodium (Porcine) (Heparin) 5,000 units SC Q12 DIA PRN Reason: Protocol Last Admin: 11/04/16 10:35 Dose: 5,000 units Levetiracetam (Keppra 500mg Ivpb) 100 mls @ 400 mls/hr IV Q12 DIA Last Admin: 11/04/16 10:36 Dose: 400 mls/hr Ceftriaxone Sodium (Rocephin 1 Gram Ivpb) 100 mls @ 100 mls/hr IVPB DAILY DIA PRN Reason: Protocol Last Admin: 11/04/16 10:36 Dose: 100 mls/hr Doxycycline Hyclate 100 mg/ (Sodium Chloride) 100 mls @ 100 mls/hr IVPB Q12 DIA PRN Reason: Protocol Last Admin: 11/03/16 22:45 Dose: 100 mls/hr Levalbuterol HCl (Xopenex) 0.63 mg IH [id number] [facility] Last Admin: 11/04/16 07:43 Dose: 0.63 mg Losartan Potassium (Cozaar) 50 mg PO DAILY [facility] Last Admin: 11/04/16 10:35 Dose: 50 mg Metoprolol Tartrate (Lopressor) 25 mg PO BID [facility] Last Admin: 11/04/16 10:36 Dose: 25 mg Pantoprazole Sodium (Protonix Inj) 40 mg IVP DAILY [facility] Last Admin: 11/04/16 10:36 Dose: 40 mg Polyethylene Glycol (Miralax) 17 gm PO BID [facility] Last Admin: 11/04/16 10:36 Dose: 17 gm - Labs Labs: 11/03/16 07:30 11/03/16 07:30 PT 11.1 Seconds (9.9-11.8) 10/28/16 01:13 INR 1.03 (0.93-1.08) 10/28/16 01:13 APTT 27.3 Seconds (23.7-30.8) 10/28/16 01:13
[2016-11-05] MEDS: Acetylcysteine 20% Inhal Soln (4ml) IH SCH ×4 (02:00→19:35)
[2016-11-05] MEDS: Levalbuterol 0.63 MG/3 ML Inhal Soln UD IH SCH ×4 (02:00→19:35)
[2016-11-05] MEDS: Dexamethasone 4 mg/1 ml IVP SCH ×2 (05:43→11:02)
[2016-11-05 07:33] LABS: ADD MANUAL DIFF? NO
[2016-11-05 07:43] LABS: BASO # 0.03 K/mm3 (0.0-2.0); BASO % 0.2 % (0.0-3.0); GRAN # 12.03 (1.4-6.5); GRAN % 89.6 % (50.0-68.0); HEMATOCRIT 46.1 % (42.0-52.0); LYMPH # 0.8 (1.2-3.4); LYMPH % 5.6 % (22.0-35.0); MEAN CELL VOLUME 93.3 fL (80.0-105.0); MEAN CORPUSCULAR HEMOGLOBIN 32.6 pg (25.0-35.0); MEAN CORPUSCULAR HGB CONC 34.9 g/dl (31.0-37.0); MEAN PLATELET VOLUME 11.1 fl (7.0-11.0); MONO # 0.6 (0.1-0.6); MONO % 4.6 % (1.0-6.0); PLATELET COUNT 253 10^3/uL (120.0-450.0); RED CELL DISTRIBUTION WIDTH 13.5 % (11.5-14.5); WHITE BLOOD COUNT 13.4 10^3/ul (4.5-11.0)
[2016-11-05 08:11] LABS: ALB/GLOB RATIO 1.1 (1.1-1.8); ALKALINE PHOSPHATASE 53 U/L (38-133); ALT/SGPT 52 U/L (7-56); AST/SGOT 32 U/L (15-59); BILIRUBIN,DIRECT 0.5 mg/dL (0.0-0.4); BILIRUBIN,TOTAL 1.1 mg/dL (0.2-1.3); BLOOD UREA NITROGEN 32 mg/dL (7-21); CALCIUM 9.2 mg/dL (8.4-10.5); CARBON DIOXIDE 22 mmol/L (21-33); CHLORIDE 101 mmol/L (98-107); GFR AFRICAN-AMERICAN > 60; GLUCOSE,RANDOM 130 mg/dL (70-110); MAGNESIUM 2.4 mg/dL (1.7-2.2); SODIUM 134 mmol/L (132-148); TOTAL PROTEIN 7.8 g/dL (5.8-8.3)
[2016-11-05 08:14] LABS: POTASSIUM 4.5 mmol/L (3.6-5.0)
[2016-11-05] MEDS: POLYETHYLENE GLYCOL 3350 17 GM/Dose PACKET PO SCH ×2 (10:58→17:25)
[2016-11-05] MEDS: levETIRAcetam 500mg IVPB 100 ML IV SCH (10:58)
[2016-11-05] MEDS: Pantoprazole 40 mg EC Tab PO SCH (11:02)
--- NOTE | 2016-11-05 11:48 | CP.PCM.PN ---
Subjective - Date & Time of Evaluation Date of Evaluation: 11/05/16 Time of Evaluation: 11:43 - Subjective Subjective: seen in consultation last admission PT decided he wants a biopsy spoke to Alecia in great detail yesterday I explained that a biopsy is an open operation with all the risks of debulking, and taking nearly as much operative time. I explained that a biopsy will not increae his life expectancy I explained there are risks including coma paralysis and and if they choos not to pursue full aggressive chemo and RT after a biopsy is a risk without benifit I also explained that the reservations Jeff has hold true for both biopsy and debulking I explained that in my opinion regardless of what he does he has a very short life expectancy She will talk to him again and decide upon their plan of action I further explained that we could not possibly operate until at least and he can be d/[facility] in the interim/ When she gets back to me I will document her decision Objective - Vital Signs/Intake and Output Vital Signs (last 24 hours): Temp Pulse Resp BP Pulse Ox 98.5 F 84 18 138/71 96 11/05/16 06:00 11/05/16 10:57 11/05/16 06:00 11/05/16 10:57 11/05/16 06:00 Intake and Output: 11/05/16 11/05/16 06:59 18:59 Intake Total 660 660 Output Total 1000 300 Balance -340 360 - Medications Medications: Current Medications Acetylcysteine (Acetylcysteine 20%) 4 ml IH [id number] [facility] Last Admin: 11/05/16 08:01 Dose: 4 ml Clonazepam (Klonopin) 0.25 mg PO BID DIA PRN Reason: Protocol Last Admin: 11/05/16 10:58 Dose: 0.25 mg Dexamethasone (Decadron Inj) 6 mg IVP Q6H [facility] Last Admin: 11/05/16 11:02 Dose: 6 mg Levetiracetam (Keppra 500mg Ivpb) 100 mls @ 400 mls/hr IV Q12 DIA Last Admin: 11/05/16 10:58 Dose: 400 mls/hr Ceftriaxone Sodium (Rocephin 1 Gram Ivpb) 100 mls @ 100 mls/hr IVPB DAILY [facility] PRN Reason: Protocol Last Admin: 11/04/16 10:36 Dose: 100 mls/hr Doxycycline Hyclate 100 mg/ (Sodium Chloride) 100 mls @ 100 mls/hr IVPB Q12 [facility] PRN Reason: Protocol Last Admin: 11/04/16 22:16 Dose: 100 mls/hr Levalbuterol HCl (Xopenex) 0.63 mg IH [id number] [facility] Last Admin: 11/05/16 08:01 Dose: 0.63 mg Losartan Potassium (Cozaar) 50 mg PO DAILY [facility] Last Admin: 11/05/16 10:57 Dose: 50 mg Metoprolol Tartrate (Lopressor) 25 mg PO BID [facility] Last Admin: 11/05/16 10:58 Dose: 25 mg Pantoprazole Sodium (Protonix Ec Tab) 40 mg PO ACB [facility] Last Admin: 11/05/16 11:02 Dose: 40 mg Polyethylene Glycol (Miralax) 17 gm PO BID [facility] Last Admin: 11/05/16 10:58 Dose: 17 gm - Labs Labs: 11/05/16 06:35 11/05/16 06:35 PT 11.1 Seconds (9.9-11.8) 10/28/16 01:13 INR 1.03 (0.93-1.08) 10/28/16 01:13 APTT 27.3 Seconds (23.7-30.8) 10/28/16 01:13
[2016-11-05] MEDS: cefTRIAXone 1 gm 100 ML IVPB SCH (13:11)
--- NOTE | 2016-11-05 15:51 | CP.PCM.PN ---
Subjective - Date & Time of Evaluation Date of Evaluation: 11/05/16 Time of Evaluation: 03:40 - Subjective Subjective: Radiological Equipment Specialist Note: Patient seen and examined. OFfers no complaints. Vital signs are stable. Patient with Brain Mass, as per Neurosurgeon , brain biopsy cannot be scheduled until next . As per neurologist , Dr. Milana العلي Decadron 6mg IV q6 can be tapered to Po as per follwinmg po q6 x3 days, then 4mg po once daily x3 days, then 2 mg po daily for 3 days then stop. Keppra 500 mg IV daily can be switched to 500 mg PO bid x 1 month. Kristina Calderon NP-C. Objective - Vital Signs/Intake and Output Vital Signs (last 24 hours): Temp Pulse Resp BP Pulse Ox 98.5 F 84 18 138/71 96 11/05/16 06:00 11/05/16 10:57 11/05/16 06:00 11/05/16 10:57 11/05/16 06:00 Intake and Output: 11/05/16 11/05/16 06:59 18:59 Intake Total 660 1660 Output Total 1000 2900 Balance -340 -1240 - Medications Medications: Current Medications Acetylcysteine (Acetylcysteine 20%) 4 ml IH [id number] DIA Last Admin: 11/05/16 13:33 Dose: 4 ml Clonazepam (Klonopin) 0.25 mg PO BID DIA PRN Reason: Protocol Last Admin: 11/05/16 10:58 Dose: 0.25 mg Dexamethasone (Decadron Inj) 6 mg IVP Q6H [facility]IA Last Admin: 11/05/16 11:02 Dose: 6 mg Levetiracetam (Keppra 500mg Ivpb) 100 mls @ 400 mls/hr IV Q12 DIA Last Admin: 11/05/16 10:58 Dose: 400 mls/hr Ceftriaxone Sodium (Rocephin 1 Gram Ivpb) 100 mls @ 100 mls/hr IVPB DAILY DIA PRN Reason: Protocol Last Admin: 11/05/16 13:11 Dose: 100 mls/hr Doxycycline Hyclate 100 mg/ (Sodium Chloride) 100 mls @ 100 mls/hr IVPB Q12 DIA PRN Reason: Protocol Last Admin: 11/05/16 10:00 Dose: 100 mls/hr Levalbuterol HCl (Xopenex) 0.63 mg IH [id number] [facility] Last Admin: 11/05/16 13:33 Dose: 0.63 mg Losartan Potassium (Cozaar) 50 mg PO DAILY [facility] Last Admin: 11/05/16 10:57 Dose: 50 mg Metoprolol Tartrate (Lopressor) 25 mg PO BID [facility] Last Admin: 11/05/16 10:58 Dose: 25 mg Pantoprazole Sodium (Protonix Ec Tab) 40 mg PO ACB [facility] Last Admin: 11/05/16 11:02 Dose: 40 mg Polyethylene Glycol (Miralax) 17 gm PO BID [facility] Last Admin: 11/05/16 10:58 Dose: 17 gm - Labs Labs: 11/05/16 06:35 11/05/16 06:35 PT 11.1 Seconds (9.9-11.8) 10/28/16 01:13 INR 1.03 (0.93-1.08) 10/28/16 01:13 APTT 27.3 Seconds (23.7-30.8) 10/28/16 01:13
[2016-11-06] MEDS: Acetylcysteine 20% Inhal Soln (4ml) IH SCH ×4 (03:41→20:50)
[2016-11-06] MEDS: Levalbuterol 0.63 MG/3 ML Inhal Soln UD IH SCH ×4 (03:41→20:50)
[2016-11-06] MEDS: Pantoprazole 40 mg EC Tab PO SCH (09:19)
[2016-11-06] MEDS: cefTRIAXone 1 gm 100 ML IVPB SCH (09:25)
[2016-11-06] MEDS: POLYETHYLENE GLYCOL 3350 17 GM/Dose PACKET PO SCH ×2 (09:25→18:38)
--- NOTE | 2016-11-06 15:59 | PN ---
DATE: 11/06/2016 The patient is seen in room 372, bed 1. The patient is sitting up out of bed to chair. The patient is seen and examined with the patient's nurse, Imani, at bedside. The patient is alert, awake, responsive. Does not appear to be in any distress. Overnight nurse's notes were reviewed. No adverse event documented. PHYSICAL EXAMINATION: VITAL SIGNS: T-max 98.3, heart rate 73, blood pressure 126/83, 145/70, respirations 19, O2 sat 98%-99%. HEAD: Normocephalic, atraumatic. HEENT: Shows pink conjunctivae, anicteric sclerae. No oropharyngeal lesion. NECK: No neck rigidity. CHEST: Kyphosis. LUNGS: Shows occasional rhonchi. No rales, crackles, or wheezing. CARDIOVASCULAR: S1, S2, regular rhythm. ABDOMEN: Soft, positive bowel sounds. GENITALIA: Male. RECTAL: Deferred. EXTREMITIES: Shows no pitting edema, no calf tenderness, no Tung sign. NEUROLOGIC: The patient is alert, awake, responsive. Cranial nerves II-XII intact. The patient is able to ambulate. The patient's tremors of the upper extremity have significantly improved. MUSCULOSKELETAL: Shows a body mass index of 27.2. DIAGNOSTICS: From 11/05 reviewed. WBC 13.4, hemoglobin/hematocrit 16.1/46.1, platelet 253. Granulocytes, 90% segs. Chemistry: Sodium 134, potassium 4.5, chloride 101, CO2 of 22, anion gap 16, BUN 32, creatinine 0.7, GFR greater than 60, glucose 130, calcium 9.2, magnesium 2.4. LFTs are normal. MRSA nondetected. The patient's chest x-ray from 11/04 was reviewed, which shows significant improvement. The patient was seen by neurosurgery. The patient was seen by radiation oncology. The patient has declined craniotomy and excision of the tumor. The patient's condition was discussed by the neurosurgery and the patient and the power of clam shucker, Alecia, by neurosurgery. The patient and the patient's power of clam shucker was explained about biopsy and need for resection of the tumor and the patient and the patient's next of kin and power of clam shucker was also explained that the biopsy will not increase his life expectancy. The patient and the patient's power of clam shucker were explained about all the risks and consequences. The patient was also explained about the short life expectancy, which he acknowledged and understands. I have spoken to the patient at length today twice with patient's nurse present. I have also discussed the patient's prognosis, condition, diagnosis, test results, code status which patient is a DNR at present with the patient's power of clam shucker, Alecia. The patient and the patient's power of clam shucker, Alecia, has requested very clearly that patient would like to be discharged to [facility] in [place], which is known as [facility], which he has very clearly mentioned that he wants to go to [facility] on [facility], which was witnessed by the patient's nurse and also the patient's power for clam shucker has requested the same. IMPRESSION AND PLAN: 1. Right-sided brain mass suspicious for glioblastoma multiforme of the brain. 2. Resolving left lower lobe pneumonia. 3. Hypertension. 4. Steroid-induced leukocytosis. 5. Granulocytosis. 6. Mild prerenal kidney injury, probably secondary to Decadron. 7. Trace proteinuria, microscopic hematuria, rare bacteriuria. 8. Left lower lobe consolidation (resolved). 1. Suspicious right-sided brain mass suspicious for glioblastoma multiforme of the brain. 2. Resolving left lower lobe pneumonia. 3. Hypertension. 4. Upper extremity tremors, etiology undetermined. 5. History of alcohol and nicotine dependence. 6. History of suicidal ideation. 7. Gait dysfunction and deconditioning. 8. History of gait dysfunction and recurrent falls. 9. Possible alcohol withdrawal. 1. Suspicious right-sided glioblastoma multiforme of the brain. 2. Resolving left lower lobe pneumonia consolidation. 3. Questionable and possible hypertension. 4. History of suicidal ideation. 5. Alcohol and nicotine dependence and alcohol intoxication. 6. History of alcohol abuse. 7. Gait dysfunction status post fall. 8. Suicidal ideation. 9. Possible sundowning syndrome. 10. History of alcohol disorder. 11. Possible alcohol withdrawal. 1. Suspicious right-sided glioblastoma multiforme of the brain. 2. Resolving left lower lobe pneumonia consolidation. 3. Questionable hypertension. 4. Improving left lower lobe consolidation and pneumonia. 5. Right upper lobe, right middle lung, stable nodules. 6. Right lower lobe atelectasis. 7. Chronic obstructive pulmonary disease with peribronchial thickening. 8. Right lower lobe discoid atelectasis. 9. Hypertension. 10. Steroid-induce leukocytosis and granulocytosis. 11. Steroid-induced hyperglycemia. 12. Trace proteinuria, rare bacteriuria, microscopic hematuria. 13. History of alcohol dependence. 1. Right temporal lobe heterogenous enhancing lesion in the medial portion, extending superiorly into the inferior aspect of the right parietal lobe with mass crossing the midline at the level of the posterior portions of the corpus callosum suggestive of malignant neoplasm. Suggest glioblastoma multiforme with large vasogenic edema surrounding the mass, with mass effect on the right lateral ventricle and partial effacement of the right basilar cistern, and possibility of mild transtentorial subfalcine herniation with heterogenous effacement of the right parietal lobe, parietal lobe mass with heterogenous enhancement of the right temporal mass, and effacement of the adjacent dura including the right tentorium, right ventricular compression by the mass lesion. 2. Questionable hypertension, transient. 3. Leukocytosis with granulocytosis probably Decadron-induced. 4. Trace proteinuria, microscopic hematuria, rare bacteriuria. 5. History of alcohol and nicotine dependence. 6. Acute alcohol intoxication on admission. 7. Deconditioning. 8. Gait dysfunction. 9. Encephalopathy. 10. Most likely right temporoparietal lobe glioblastoma multiforme. 1. Right temporal lobe heterogenous enhancing lesion in the medial portion extending superiorly into the inferior aspect of the right parietal lobe with mass crossing the midline at the level of the posterior portion of the corpus callosum suggestive of malignant neoplasm such as glioblastoma multiforme with large vasogenic edema surrounding the mass with mass effect on the right lateral ventricle and partial effacement of the right basilar cistern and possibility of mild transtentorial subfalcine herniation with heterogenous effacement of the right parietal lobe mass with heterogenous enhancement of the right temporal mass and effacement of the adjacent dura including the right tentorium, right ventricular compression by the mass lesion. 2. Left lower lobe consolidation. 3. Possible hypertension. 4. Transient hypoxemia. 5. Tachycardia. 6. Leukocytosis with granulocytosis, probably Decadron-induced. 7. Trace proteinuria, microscopic hematuria, pyuria, bacteriuria. 8. Alcohol intoxication with history of alcohol dependence addiction and nicotine addiction and dependence. 9. Questionable history of suicidal ideation. 10. Right temporal lobe, medial portion heterogenous enhancing mass lesion extending superiorly into inferior aspect of the right parietal lobe measuring 7 cm x 4.6 cm x 5.5 cm with the mass crossing the midline at the level of the posterior portion of the corpus callosum suggestive of malignant neoplasm such has glioblastoma multiforme with large vasogenic edema surrounding the mass, resulting in mass effect on the right lateral ventricle with 11 mm right to left midline shift, and partial effacement of the right basilar cistern with possibility of mild transtentorial and subfalcine herniation with mild enhancement of the adjacent dura along with the right tentorium with right ventricular compression by the right temporal lobe mass. 11. Left frontal and maxillary sinus mucosal thickening. 12. Deconditioning. 1. Right temporal lobe hydrogenous enhancing lesion in the medial portion extending superiorly to the inferior aspect of the right parietal lobe with mass crossing the midline at the level of the posterior portion of the corpus callosum suggestive of malignant neoplasm such as glioblastoma multiforme with large vasogenic edema surrounding the mass with mass effect on the right lateral ventricle and partial effacement of the right basilar cistern and possibility of mild transtentorial subfalcine herniation with heterogenous enhancement of the right temporal lobe mass with heterogenous enhancement of the right temporal mass and effacement of the adjacent dura including the right tentorium, right ventricular compression by the mass lesion. 2. Left lower lobe consolidation. 3. Episodic transient hypertension. 4. Transient hypoxemia. 5. Tachycardia. 6. Leukocytosis with granulocytosis, probably Decadron induced. 7. Trace proteinuria, microscopic hematuria, bacteriuria. 8. Alcohol intoxication with history of alcohol dependence, addiction and nicotine addiction dependence. 1. 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 2. Left lower lobe consolidation. 3. Questionable hypertension. 4. Tachypnea. 5. Microscopic hematuria and rare bacteriuria. 6. History of fall. 7. History of recurrent fall. 8. Alcohol intoxication and history of alcohol and nicotine dependence and history of alcohol and nicotine dependence. 9. 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 10. Alcohol use disorder. 11. Alcohol intoxication. 12. Suicidal ideation. 13. Alcohol use disorder. 14. Left lower lobe consolidation. 15. Active alcohol intoxication. 16. Questionable left lower lobe pneumonia, atelectasis and right middle lobe and left upper lobe nodule. 17. Questionable encephalopathy. 18. History of noncompliance. 19. Deconditioning. 1. Right cerebral hemisphere extensive vasogenic edema with involvement of the right temporal, posterior frontal and parietal lobe; vasogenic edema with right- sided intracranial mass with suspected large mass in the right temporal lobe with additional masses of the right temporal, right posterior frontal lobe with intracranial mass effect and midline shift to the left of 9 mm with effacement of the basilar cistern on the right, effacement and displacement of the right lateral ventricle and diffuse sulcal effacement in the right cerebral hemisphere. 2. Active alcohol intoxication. 3. Questionable encephalopathy with confusional state. 4. Questionable suicidal ideation. 5. Trace proteinuria and microscopic hematuria and trace bacteriuria. 6. Acute alcohol intoxication. 7. Questionable left lower lobe pneumonia, atelectasis with right middle lobe and left upper lobe nodule. 8. History of nicotine and alcohol dependence and addiction. 9. Alcohol dependence and addiction. 10. Gait dysfunction with history of fall. 11. Questionable encephalopathy, etiology undetermined with acute alcohol intoxication. The patient has been ordered serial labs. The patient's code status is now DNR/ DNI, as per living will and advanced directive and healthcare proxy. Current consultations with hematology/oncology, psychiatry, neurosurgery, neurology, radiation oncology. CURRENT MEDICATIONS: 1. Mucomyst nebulizer 20% every 6 hours with Xopenex nebulizer every 6 hours. 2. Cozaar 50 mg daily. 3. Decadron 4 mg p.o. q. 6 hours. 4. Vibramycin 100 mg IV q. 12. 5. Keppra 500 mg twice a day p.o. 6. Klonopin 0.25 mg twice a day. 7. Lopressor 25 mg twice a day. 8. MiraLax 17 g twice a day. 9. Protonix 40 mg daily. 10. Rocephin 1 gram IV daily. Chest PT has been ordered, regular diet, out of bed to chair, SCDs, physical therapy, occupational therapy ordered. The patient has been seen by physical therapy. Their recommendation is subacute rehabilitation. Dictated and electronically signed, not read. Flash Harper MD cc: [id number] TT: 11/06/2016 15:59:11 Confirmation # [id number] Dictation # [id number] ledy [id number]
[2016-11-07] MEDS: Levalbuterol 0.63 MG/3 ML Inhal Soln UD IH SCH ×4 (02:11→20:00)
[2016-11-07] MEDS: Acetylcysteine 20% Inhal Soln (4ml) IH SCH ×4 (02:11→20:00)
[2016-11-07 09:03] LABS: ADD MANUAL DIFF? NO
[2016-11-07 09:17] LABS: BASO # 0.02 K/mm3 (0.0-2.0); BASO % 0.1 % (0.0-3.0); EOS % 0.2 % (1.5-5.0); GRAN # 12.12 (1.4-6.5); GRAN % 90.1 % (50.0-68.0); HEMATOCRIT 43.6 % (42.0-52.0); LYMPH # 0.6 (1.2-3.4); LYMPH % 4.2 % (22.0-35.0); MEAN CELL VOLUME 95.6 fL (80.0-105.0); MEAN CORPUSCULAR HEMOGLOBIN 32.2 pg (25.0-35.0); MEAN CORPUSCULAR HGB CONC 33.7 g/dl (31.0-37.0); MEAN PLATELET VOLUME 11.4 fl (7.0-11.0); MONO # 0.7 (0.1-0.6); MONO % 5.4 % (1.0-6.0); PLATELET COUNT 195 10^3/uL (120.0-450.0); RED CELL DISTRIBUTION WIDTH 13.6 % (11.5-14.5); WHITE BLOOD COUNT 13.5 10^3/ul (4.5-11.0)
[2016-11-07 09:30] LABS: ALB/GLOB RATIO 1.1 (1.1-1.8); ALKALINE PHOSPHATASE 43 U/L (38-133); ALT/SGPT 44 U/L (7-56); AST/SGOT 21 U/L (15-59); BILIRUBIN,DIRECT 0.3 mg/dL (0.0-0.4); BILIRUBIN,TOTAL 1.1 mg/dL (0.2-1.3); BLOOD UREA NITROGEN 25 mg/dL (7-21); CALCIUM 8.9 mg/dL (8.4-10.5); CARBON DIOXIDE 27 mmol/L (21-33); CHLORIDE 98 mmol/L (95-110); GFR AFRICAN-AMERICAN > 60; GLUCOSE,RANDOM 111 mg/dL (70-110); MAGNESIUM 2.3 mg/dL (1.7-2.2); POTASSIUM 4.5 mmol/L (3.6-5.0); SODIUM 132 mmol/L (132-148); TOTAL PROTEIN 6.7 g/dL (5.8-8.3)
[2016-11-07] MEDS: POLYETHYLENE GLYCOL 3350 17 GM/Dose PACKET PO SCH ×2 (09:37→17:28)
[2016-11-07] MEDS: Pantoprazole 40 mg EC Tab PO SCH (09:38)
[2016-11-07] MEDS: cefTRIAXone 1 gm 100 ML IVPB SCH (09:40)
[2016-11-08] MEDS: Levalbuterol 0.63 MG/3 ML Inhal Soln UD IH SCH ×3 (01:55→13:26)
[2016-11-08] MEDS: Acetylcysteine 20% Inhal Soln (4ml) IH SCH ×3 (01:55→13:26)
[2016-11-08 08:24] VITALS: BP 147/83; PULSE 66; RESP 20; TEMP 97.6; O2SAT 98
[2016-11-08] MEDS: Pantoprazole 40 mg EC Tab PO SCH (09:22)
[2016-11-08] MEDS: POLYETHYLENE GLYCOL 3350 17 GM/Dose PACKET PO SCH (09:23)
--- NOTE | 2016-11-08 12:43 | PN ---
DATE: 11/08/2016 The patient is seen in room 372, bed 1. The patient is seen out of bed to chair. The patient is alert, awake, responsive, does not appear to be in any distress. Overnight nurse's notes were reviewed. PHYSICAL EXAMINATION: VITAL SIGNS: T-max afebrile, heart rate 66, blood pressure 147/83, respirations 20, O2 sat 98%. HEAD: Normocephalic, atraumatic. HEENT: Shows pink conjunctivae, anicteric sclerae. No oropharyngeal lesion. NECK: No neck rigidity. CHEST: Kyphosis. LUNGS: Shows occasional rhonchi upper lung herman. GAIT: The patient is independent ambulating in the room. The patient does have some residual upper extremity tremors, but much improved since admission and over the past preceding days. CARDIOVASCULAR: Shows S1, S2, regular rhythm. ABDOMEN: Soft, positive bowel sounds. GENITALIA: Male. RECTAL: Deferred. EXTREMITIES: Shows no pitting edema, no calf tenderness, no Homans' sign. NEUROLOGIC: The patient is alert, awake, responsive, is able to answer all the questions appropriately. ABDOMEN: Soft. Positive bowel sounds. GENITALIA: Male. RECTAL: Deferred. EXTREMITIES: Shows no pitting edema, no calf tenderness, no Tung's signs. NEUROLOGIC: The patient is alert, awake, responsive, able to ambulate without assistance. Decreasing tremors of the upper extremity. The patient is aware of his medical diagnosis, which has been explained to him on multiple occasions in addition to the patient's next of kin, Alecia. DIAGNOSTICS: None from today. Yesterday's diagnostics were reviewed and therapeutic intervention done if needed. IMPRESSION AND PLAN: 1. Right-sided brain mass suspicious for glioblastoma multiforme of the brain. 2. Resolving left lower lobe pneumonia. 3. Upper extremity tremors versus intentional tremors versus questionable etiology. 4. Hypertension. 5. Transient tachypnea. 6. History of nicotine and alcohol addiction and dependence. 7. Transient hypoxemia. 8. Leukocytosis with granulocytosis. 9. Possible systemic inflammatory response syndrome. 10. Mild prerenal kidney injury. 11. Gait dysfunction. 12. Deconditioning 13. Trace proteinuria, rare bacteriuria and microscopic hematuria. 14. Alcohol intoxication on admission. 15. Hypertension. 16. Constipation. 17. Nicotine dependence and addiction. 1. Right-sided brain mass suspicious for glioblastoma multiforme of the brain. 2. Resolving left lower lobe pneumonia. 3. Hypertension. 4. Steroid-induced leukocytosis. 5. Granulocytosis. 6. Mild prerenal kidney injury, probably secondary to Decadron. 7. Trace proteinuria, microscopic hematuria, rare bacteriuria. 8. Left lower lobe consolidation (resolved). 1. Suspicious right-sided brain mass suspicious for glioblastoma multiforme of the brain. 2. Resolving left lower lobe pneumonia. 3. Hypertension. 4. Upper extremity tremors, etiology undetermined. 5. History of alcohol and nicotine dependence. 6. History of suicidal ideation. 7. Gait dysfunction and deconditioning. 8. History of gait dysfunction and recurrent falls. 9. Possible alcohol withdrawal. 1. Suspicious right-sided glioblastoma multiforme of the brain. 2. Resolving left lower lobe pneumonia consolidation. 3. Questionable and possible hypertension. 4. History of suicidal ideation. 5. Alcohol and nicotine dependence and alcohol intoxication. 6. History of alcohol abuse. 7. Gait dysfunction status post fall. 8. Suicidal ideation. 9. Possible sundowning syndrome. 10. History of alcohol disorder. 11. Possible alcohol withdrawal. 1. Suspicious right-sided glioblastoma multiforme of the brain. 2. Resolving left lower lobe pneumonia consolidation. 3. Questionable hypertension. 4. Improving left lower lobe consolidation and pneumonia. 5. Right upper lobe, right middle lung, stable nodules. 6. Right lower lobe atelectasis. 7. Chronic obstructive pulmonary disease with peribronchial thickening. 8. Right lower lobe discoid atelectasis. 9. Hypertension. 10. Steroid-induce leukocytosis and granulocytosis. 11. Steroid-induced hyperglycemia. 12. Trace proteinuria, rare bacteriuria, microscopic hematuria. 13. History of alcohol dependence. 1. Right temporal lobe heterogenous enhancing lesion in the medial portion, extending superiorly into the inferior aspect of the right parietal lobe with mass crossing the midline at the level of the posterior portions of the corpus callosum suggestive of malignant neoplasm. Suggest glioblastoma multiforme with large vasogenic edema surrounding the mass, with mass effect on the right lateral ventricle and partial effacement of the right basilar cistern, and possibility of mild transtentorial subfalcine herniation with heterogenous effacement of the right parietal lobe, parietal lobe mass with heterogenous enhancement of the right temporal mass, and effacement of the adjacent dura including the right tentorium, right ventricular compression by the mass lesion. 2. Questionable hypertension, transient. 3. Leukocytosis with granulocytosis probably Decadron-induced. 4. Trace proteinuria, microscopic hematuria, rare bacteriuria. 5. History of alcohol and nicotine dependence. 6. Acute alcohol intoxication on admission. 7. Deconditioning. 8. Gait dysfunction. 9. Encephalopathy. 10. Most likely right temporoparietal lobe glioblastoma multiforme. 1. Right temporal lobe heterogenous enhancing lesion in the medial portion extending superiorly into the inferior aspect of the right parietal lobe with mass crossing the midline at the level of the posterior portion of the corpus callosum suggestive of malignant neoplasm such as glioblastoma multiforme with large vasogenic edema surrounding the mass with mass effect on the right lateral ventricle and partial effacement of the right basilar cistern and possibility of mild transtentorial subfalcine herniation with heterogenous effacement of the right parietal lobe mass with heterogenous enhancement of the right temporal mass and effacement of the adjacent dura including the right tentorium, right ventricular compression by the mass lesion. 2. Left lower lobe consolidation. 3. Possible hypertension. 4. Transient hypoxemia. 5. Tachycardia. 6. Leukocytosis with granulocytosis, probably Decadron-induced. 7. Trace proteinuria, microscopic hematuria, pyuria, bacteriuria. 8. Alcohol intoxication with history of alcohol dependence addiction and nicotine addiction and dependence. 9. Questionable history of suicidal ideation. 10. Right temporal lobe, medial portion heterogenous enhancing mass lesion extending superiorly into inferior aspect of the right parietal lobe measuring 7 cm x 4.6 cm x 5.5 cm with the mass crossing the midline at the level of the posterior portion of the corpus callosum suggestive of malignant neoplasm such has glioblastoma multiforme with large vasogenic edema surrounding the mass, resulting in mass effect on the right lateral ventricle with 11 mm right to left midline shift, and partial effacement of the right basilar cistern with possibility of mild transtentorial and subfalcine herniation with mild enhancement of the adjacent dura along with the right tentorium with right ventricular compression by the right temporal lobe mass. 11. Left frontal and maxillary sinus mucosal thickening. 12. Deconditioning. 1. Right temporal lobe hydrogenous enhancing lesion in the medial portion extending superiorly to the inferior aspect of the right parietal lobe with mass crossing the midline at the level of the posterior portion of the corpus callosum suggestive of malignant neoplasm such as glioblastoma multiforme with large vasogenic edema surrounding the mass with mass effect on the right lateral ventricle and partial effacement of the right basilar cistern and possibility of mild transtentorial subfalcine herniation with heterogenous enhancement of the right temporal lobe mass with heterogenous enhancement of the right temporal mass and effacement of the adjacent dura including the right tentorium, right ventricular compression by the mass lesion. 2. Left lower lobe consolidation. 3. Episodic transient hypertension. 4. Transient hypoxemia. 5. Tachycardia. 6. Leukocytosis with granulocytosis, probably Decadron induced. 7. Trace proteinuria, microscopic hematuria, bacteriuria. 8. Alcohol intoxication with history of alcohol dependence, addiction and nicotine addiction dependence. 1. 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 2. Left lower lobe consolidation. 3. Questionable hypertension. 4. Tachypnea. 5. Microscopic hematuria and rare bacteriuria. 6. History of fall. 7. History of recurrent fall. 8. Alcohol intoxication and history of alcohol and nicotine dependence and history of alcohol and nicotine dependence. 9. 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 10. Alcohol use disorder. 11. Alcohol intoxication. 12. Suicidal ideation. 13. Alcohol use disorder. 14. Left lower lobe consolidation. 15. Active alcohol intoxication. 16. Questionable left lower lobe pneumonia, atelectasis and right middle lobe and left upper lobe nodule. 17. Questionable encephalopathy. 18. History of noncompliance. 19. Deconditioning. 1. Right cerebral hemisphere extensive vasogenic edema with involvement of the right temporal, posterior frontal and parietal lobe; vasogenic edema with right- sided intracranial mass with suspected large mass in the right temporal lobe with additional masses of the right temporal, right posterior frontal lobe with intracranial mass effect and midline shift to the left of 9 mm with effacement of the basilar cistern on the right, effacement and displacement of the right lateral ventricle and diffuse sulcal effacement in the right cerebral hemisphere. 2. Active alcohol intoxication. 3. Questionable encephalopathy with confusional state. 4. Questionable suicidal ideation. 5. Trace proteinuria and microscopic hematuria and trace bacteriuria. 6. Acute alcohol intoxication. 7. Questionable left lower lobe pneumonia, atelectasis with right middle lobe and left upper lobe nodule. 8. History of nicotine and alcohol dependence and addiction. 9. Alcohol dependence and addiction. 10. Gait dysfunction with history of fall. 11. Questionable encephalopathy, etiology undetermined with acute alcohol intoxication. 1. Right-sided brain mass suspicious for glioblastoma multiforme. 2. Left lower lobe pneumonia consolidation. 3. Hypertension. 4. Steroid-induced leukocytosis. 5. Upper extremity tremors, questionable essential tremors versus intention tremors. 6. Granulocytosis. 7. Mild prerenal kidney injury, probably secondary to Decadron. 8. Trace proteinuria, microscopic hematuria, pyuria, bacteriuria. 9. Left lower lobe consolidation. 10. Hypertension. 11. Leukocytosis with granulocytosis. 12. Mild prerenal kidney injury. 13. Steroid-induced hyperglycemia. 1. Right-sided brain mass suspicious for glioblastoma multiforme of the brain. 2. Resolving left lower lobe pneumonia. 3. Hypertension. 4. Steroid-induced leukocytosis. 5. Granulocytosis. 6. Mild prerenal kidney injury, probably secondary to Decadron. 7. Trace proteinuria, microscopic hematuria, rare bacteriuria. 8. Left lower lobe consolidation (resolved). 1. Suspicious right-sided brain mass suspicious for glioblastoma multiforme of the brain. 2. Resolving left lower lobe pneumonia. 3. Hypertension. 4. Upper extremity tremors, etiology undetermined. 5. History of alcohol and nicotine dependence. 6. History of suicidal ideation. 7. Gait dysfunction and deconditioning. 8. History of gait dysfunction and recurrent falls. 9. Possible alcohol withdrawal. 1. Suspicious right-sided glioblastoma multiforme of the brain. 2. Resolving left lower lobe pneumonia consolidation. 3. Questionable and possible hypertension. 4. History of suicidal ideation. 5. Alcohol and nicotine dependence and alcohol intoxication. 6. History of alcohol abuse. 7. Gait dysfunction status post fall. 8. Suicidal ideation. 9. Possible sundowning syndrome. 10. History of alcohol disorder. 11. Possible alcohol withdrawal. 1. Suspicious right-sided glioblastoma multiforme of the brain. 2. Resolving left lower lobe pneumonia consolidation. 3. Questionable hypertension. 4. Improving left lower lobe consolidation and pneumonia. 5. Right upper lobe, right middle lung, stable nodules. 6. Right lower lobe atelectasis. 7. Chronic obstructive pulmonary disease with peribronchial thickening. 8. Right lower lobe discoid atelectasis. 9. Hypertension. 10. Steroid-induce leukocytosis and granulocytosis. 11. Steroid-induced hyperglycemia. 12. Trace proteinuria, rare bacteriuria, microscopic hematuria. 13. History of alcohol dependence. 1. Right temporal lobe heterogenous enhancing lesion in the medial portion, extending superiorly into the inferior aspect of the right parietal lobe with mass crossing the midline at the level of the posterior portions of the corpus callosum suggestive of malignant neoplasm. Suggest glioblastoma multiforme with large vasogenic edema surrounding the mass, with mass effect on the right lateral ventricle and partial effacement of the right basilar cistern, and possibility of mild transtentorial subfalcine herniation with heterogenous effacement of the right parietal lobe, parietal lobe mass with heterogenous enhancement of the right temporal mass, and effacement of the adjacent dura including the right tentorium, right ventricular compression by the mass lesion. 2. Questionable hypertension, transient. 3. Leukocytosis with granulocytosis probably Decadron-induced. 4. Trace proteinuria, microscopic hematuria, rare bacteriuria. 5. History of alcohol and nicotine dependence. 6. Acute alcohol intoxication on admission. 7. Deconditioning. 8. Gait dysfunction. 9. Encephalopathy. 10. Most likely right temporoparietal lobe glioblastoma multiforme. 1. Right temporal lobe heterogenous enhancing lesion in the medial portion extending superiorly into the inferior aspect of the right parietal lobe with mass crossing the midline at the level of the posterior portion of the corpus callosum suggestive of malignant neoplasm such as glioblastoma multiforme with large vasogenic edema surrounding the mass with mass effect on the right lateral ventricle and partial effacement of the right basilar cistern and possibility of mild transtentorial subfalcine herniation with heterogenous effacement of the right parietal lobe mass with heterogenous enhancement of the right temporal mass and effacement of the adjacent dura including the right tentorium, right ventricular compression by the mass lesion. 2. Left lower lobe consolidation. 3. Possible hypertension. 4. Transient hypoxemia. 5. Tachycardia. 6. Leukocytosis with granulocytosis, probably Decadron-induced. 7. Trace proteinuria, microscopic hematuria, pyuria, bacteriuria. 8. Alcohol intoxication with history of alcohol dependence addiction and nicotine addiction and dependence. 9. Questionable history of suicidal ideation. 10. Right temporal lobe, medial portion heterogenous enhancing mass lesion extending superiorly into inferior aspect of the right parietal lobe measuring 7 cm x 4.6 cm x 5.5 cm with the mass crossing the midline at the level of the posterior portion of the corpus callosum suggestive of malignant neoplasm such has glioblastoma multiforme with large vasogenic edema surrounding the mass, resulting in mass effect on the right lateral ventricle with 11 mm right to left midline shift, and partial effacement of the right basilar cistern with possibility of mild transtentorial and subfalcine herniation with mild enhancement of the adjacent dura along with the right tentorium with right ventricular compression by the right temporal lobe mass. 11. Left frontal and maxillary sinus mucosal thickening. 12. Deconditioning. 1. Right temporal lobe hydrogenous enhancing lesion in the medial portion extending superiorly to the inferior aspect of the right parietal lobe with mass crossing the midline at the level of the posterior portion of the corpus callosum suggestive of malignant neoplasm such as glioblastoma multiforme with large vasogenic edema surrounding the mass with mass effect on the right lateral ventricle and partial effacement of the right basilar cistern and possibility of mild transtentorial subfalcine herniation with heterogenous enhancement of the right temporal lobe mass with heterogenous enhancement of the right temporal mass and effacement of the adjacent dura including the right tentorium, right ventricular compression by the mass lesion. 2. Left lower lobe consolidation. 3. Episodic transient hypertension. 4. Transient hypoxemia. 5. Tachycardia. 6. Leukocytosis with granulocytosis, probably Decadron induced. 7. Trace proteinuria, microscopic hematuria, bacteriuria. 8. Alcohol intoxication with history of alcohol dependence, addiction and nicotine addiction dependence. 1. 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 2. Left lower lobe consolidation. 3. Questionable hypertension. 4. Tachypnea. 5. Microscopic hematuria and rare bacteriuria. 6. History of fall. 7. History of recurrent fall. 8. Alcohol intoxication and history of alcohol and nicotine dependence and history of alcohol and nicotine dependence. 9. 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 10. Alcohol use disorder. 11. Alcohol intoxication. 12. Suicidal ideation. 13. Alcohol use disorder. 14. Left lower lobe consolidation. 15. Active alcohol intoxication. 16. Questionable left lower lobe pneumonia, atelectasis and right middle lobe and left upper lobe nodule. 17. Questionable encephalopathy. 18. History of noncompliance. 19. Deconditioning. 1. Right cerebral hemisphere extensive vasogenic edema with involvement of the right temporal, posterior frontal and parietal lobe; vasogenic edema with right- sided intracranial mass with suspected large mass in the right temporal lobe with additional masses of the right temporal, right posterior frontal lobe with intracranial mass effect and midline shift to the left of 9 mm with effacement of the basilar cistern on the right, effacement and displacement of the right lateral ventricle and diffuse sulcal effacement in the right cerebral hemisphere. 2. Active alcohol intoxication. 3. Questionable encephalopathy with confusional state. 4. Questionable suicidal ideation. 5. Trace proteinuria and microscopic hematuria and trace bacteriuria. 6. Acute alcohol intoxication. 7. Questionable left lower lobe pneumonia, atelectasis with right middle lobe and left upper lobe nodule. 8. History of nicotine and alcohol dependence and addiction. 9. Alcohol dependence and addiction. 10. Gait dysfunction with history of fall. 11. Questionable encephalopathy, etiology undetermined with acute alcohol intoxication. PLAN: At this time, patient is awaiting discharge disposition to the [facility] the patient and the power of district attorney choice. The patient and the power of district attorney has requested their choice at [facility]. I have advised them to contact the medical social consultant regarding discharge planning. CURRENT DISCHARGE MEDICATIONS: 1. The patient is on Mucomyst and Xopenex nebulizer every 6 hours. 2. Cozaar 50 mg daily. 3. Decadron 4 mg every 6 hours for 3 days, then to be decreased accordingly. 4. Keppra 500 twice a day. 5. The patient is on Klonopin 0.25 twice a day. 6. Lopressor 25 mg twice a day. 7. MiraLax 17 g twice a day. 8. Protonix 40 mg daily. 9. Xopenex and Mucomyst nebulizer every 6 hours. 10. Decadron will be tapered down, which will be 4 mg every 6 hours for 3 days , then 4 mg of Decadron daily for 3 days, then 2 mg daily for 3 days, to be stopped. 11. Keppra to be continued 500 mg twice a day for at least 4 weeks depending upon patient's clinical condition. At present, patient and the patient's power of district attorney has declined neurosurgical interventions. The patient and the patient's power of district attorney are aware of risks, consequences of declining treatment. The patient and the patient's power of district attorney are also aware of patient's diagnosis of brain malignancy. Dictated and electronically signed, not read. Flash Harper MD cc: [id number] TT: 11/08/2016 12:42:32 Confirmation # [id number] Dictation # [id number] [id number]
--- NOTE | 2016-11-08 13:23 | CP.PCM.PN ---
Subjective - Date & Time of Evaluation Date of Evaluation: 11/08/16 Time of Evaluation: 13:00 - Subjective Subjective: Alert, oriented. Sitting in bedside chair. Offers no complaints. Objective - Vital Signs/Intake and Output Vital Signs (last 24 hours): Temp Pulse Resp BP Pulse Ox 97.6 F 66 20 147/83 98 11/08/16 08:20 11/08/16 09:22 11/08/16 08:20 11/08/16 09:22 11/08/16 08:20 Intake and Output: 11/08/16 11/08/16 06:59 18:59 Intake Total 300 Output Total 150 Balance 150 - Medications Medications: Current Medications Acetylcysteine (Acetylcysteine 20%) 4 ml IH [id number] [facility] Last Admin: 11/08/16 08:08 Dose: 4 ml Clonazepam (Klonopin) 0.25 mg PO BID [facility] PRN Reason: Protocol Last Admin: 11/08/16 09:21 Dose: 0.25 mg Dexamethasone (Decadron) 4 mg PO Q6 [facility] Stop: 11/08/16 18:01 Last Admin: 11/08/16 13:13 Dose: 4 mg Levalbuterol HCl (Xopenex) 0.63 mg IH [id number] [facility] Last Admin: 11/08/16 08:08 Dose: 0.63 mg Levetiracetam (Keppra) 500 mg PO BID [facility] Last Admin: 11/08/16 09:22 Dose: 500 mg Losartan Potassium (Cozaar) 50 mg PO DAILY [facility] Last Admin: 11/08/16 09:22 Dose: 50 mg Metoprolol Tartrate (Lopressor) 25 mg PO BID [facility] Last Admin: 11/08/16 09:21 Dose: 25 mg Pantoprazole Sodium (Protonix Ec Tab) 40 mg PO ACB [facility] Last Admin: 11/08/16 09:22 Dose: 40 mg Polyethylene Glycol (Miralax) 17 gm PO BID [facility] Last Admin: 11/08/16 09:23 Dose: Not Given - Labs Labs: 11/07/16 09:01 11/07/16 09:01 PT 11.1 Seconds (9.9-11.8) 10/28/16 01:13 INR 1.03 (0.93-1.08) 10/28/16 01:13 APTT 27.3 Seconds (23.7-30.8) 10/28/16 01:13 - Constitutional Appears: No Acute Distress, Chronically Ill - Eye Exam Eye Exam: Normal appearance, PERRL - ENT Exam ENT Exam: Mucous Membranes Moist, Normal Oropharynx - Respiratory Exam Respiratory Exam: Clear to Ausculation Bilateral, NORMAL BREATHING PATTERN - Cardiovascular Exam Cardiovascular Exam: +S1, +S2 - GI/Abdominal Exam GI & Abdominal Exam: Soft, Normal Bowel Sounds - Extremities Exam Extremities Exam: Normal Capillary Refill, Normal Inspection - Neurological Exam Neurological Exam: Alert, Oriented x3 - Skin Skin Exam: Dry, Warm Assessment and Plan - Assessment and Plan (Free Text) Assessment: 70 year old male admitted after a mechanical fall, found to have a bran mass. History of alcohol and tobacco dependence HTN, gait dysfunction, deconditioning. Patient sitting up at bedside. He is alert and oriented. Srinath PETERS and I affirmed that patient does not want brain biopsy or other neurosurgical interventions. Patient states he wants to go to Rehab at this time. Plan: To [facility] for rehabilitation. Thank you for allowing me participate in this patients care
--- NOTE | 2016-11-09 00:03 | PN ---
DATE: 11/07/2016 SUBJECTIVE: The patient is seen in room 372, bed 1. The patient is seen out of bed to chair. The patient is alert, awake, responsive, oriented x 3. PHYSICAL EXAMINATION: VITAL SIGNS: Over the last 24 hours: T-max 98.6, heart rate is 64-66, blood pressure in the last 24 hours 126/83, 134/81, respirations 20, O2 sat is 98%. Body mass index is 27. HEAD: Normocephalic, atraumatic. HEENT: Shows pink conjunctivae, anicteric sclerae. No oropharyngeal lesion. NECK: No neck rigidity. CHEST: Kyphosis. LUNGS: Shows occasional rhonchi of the upper lung herman, no rales, crackles, or wheezing. CARDIOVASCULAR: Shows S1, S2, regular rhythm. ABDOMEN: Soft, positive bowel sounds. GENITALIA: Male. RECTAL: Deferred. EXTREMITIES: Shows no pitting edema, no calf tenderness, no Homans' sign. Positive upper extremity tremors noted. GAIT: Unsteady, but independent. VASCULAR: Palpable pulses. NEUROLOGICAL: Cranial nerves II-XII intact, but limited. PSYCHIATRIC: Negative for suicidal or homicidal ideation. Negative for anxiety , depression. Negative for auditory or visual hallucination. VASCULAR: Palpable pulses. DIAGNOSTICS: 11/07: WBC count 613.5, hemoglobin and hematocrit 14.7 and 43.6, platelet 195. Granulocytes 90% segs. Sodium 132, potassium 4.5, chloride 98, CO2 27, anion gap 12, BUN 25, creatinine 0.6, GFR greater than 60, glucose 111, magnesium 2.3. LFTs are normal. IMPRESSION AND PLAN: 1. Right-sided brain mass suspicious for glioblastoma multiforme. 2. Left lower lobe pneumonia consolidation. 3. Hypertension. 4. Steroid-induced leukocytosis. 5. Upper extremity tremors, questionable essential tremors versus intention tremors. 6. Granulocytosis. 7. Mild prerenal kidney injury, probably secondary to Decadron. 8. Trace proteinuria, microscopic hematuria, pyuria, bacteriuria. 9. Left lower lobe consolidation. 10. Hypertension. 11. Leukocytosis with granulocytosis. 12. Mild prerenal kidney injury. 13. Steroid-induced hyperglycemia. 1. Right-sided brain mass suspicious for glioblastoma multiforme of the brain. 2. Resolving left lower lobe pneumonia. 3. Hypertension. 4. Steroid-induced leukocytosis. 5. Granulocytosis. 6. Mild prerenal kidney injury, probably secondary to Decadron. 7. Trace proteinuria, microscopic hematuria, rare bacteriuria. 8. Left lower lobe consolidation (resolved). 1. Suspicious right-sided brain mass suspicious for glioblastoma multiforme of the brain. 2. Resolving left lower lobe pneumonia. 3. Hypertension. 4. Upper extremity tremors, etiology undetermined. 5. History of alcohol and nicotine dependence. 6. History of suicidal ideation. 7. Gait dysfunction and deconditioning. 8. History of gait dysfunction and recurrent falls. 9. Possible alcohol withdrawal. 1. Suspicious right-sided glioblastoma multiforme of the brain. 2. Resolving left lower lobe pneumonia consolidation. 3. Questionable and possible hypertension. 4. History of suicidal ideation. 5. Alcohol and nicotine dependence and alcohol intoxication. 6. History of alcohol abuse. 7. Gait dysfunction status post fall. 8. Suicidal ideation. 9. Possible sundowning syndrome. 10. History of alcohol disorder. 11. Possible alcohol withdrawal. 1. Suspicious right-sided glioblastoma multiforme of the brain. 2. Resolving left lower lobe pneumonia consolidation. 3. Questionable hypertension. 4. Improving left lower lobe consolidation and pneumonia. 5. Right upper lobe, right middle lung, stable nodules. 6. Right lower lobe atelectasis. 7. Chronic obstructive pulmonary disease with peribronchial thickening. 8. Right lower lobe discoid atelectasis. 9. Hypertension. 10. Steroid-induce leukocytosis and granulocytosis. 11. Steroid-induced hyperglycemia. 12. Trace proteinuria, rare bacteriuria, microscopic hematuria. 13. History of alcohol dependence. 1. Right temporal lobe heterogenous enhancing lesion in the medial portion, extending superiorly into the inferior aspect of the right parietal lobe with mass crossing the midline at the level of the posterior portions of the corpus callosum suggestive of malignant neoplasm. Suggest glioblastoma multiforme with large vasogenic edema surrounding the mass, with mass effect on the right lateral ventricle and partial effacement of the right basilar cistern, and possibility of mild transtentorial subfalcine herniation with heterogenous effacement of the right parietal lobe, parietal lobe mass with heterogenous enhancement of the right temporal mass, and effacement of the adjacent dura including the right tentorium, right ventricular compression by the mass lesion. 2. Questionable hypertension, transient. 3. Leukocytosis with granulocytosis probably Decadron-induced. 4. Trace proteinuria, microscopic hematuria, rare bacteriuria. 5. History of alcohol and nicotine dependence. 6. Acute alcohol intoxication on admission. 7. Deconditioning. 8. Gait dysfunction. 9. Encephalopathy. 10. Most likely right temporoparietal lobe glioblastoma multiforme. 1. Right temporal lobe heterogenous enhancing lesion in the medial portion extending superiorly into the inferior aspect of the right parietal lobe with mass crossing the midline at the level of the posterior portion of the corpus callosum suggestive of malignant neoplasm such as glioblastoma multiforme with large vasogenic edema surrounding the mass with mass effect on the right lateral ventricle and partial effacement of the right basilar cistern and possibility of mild transtentorial subfalcine herniation with heterogenous effacement of the right parietal lobe mass with heterogenous enhancement of the right temporal mass and effacement of the adjacent dura including the right tentorium, right ventricular compression by the mass lesion. 2. Left lower lobe consolidation. 3. Possible hypertension. 4. Transient hypoxemia. 5. Tachycardia. 6. Leukocytosis with granulocytosis, probably Decadron-induced. 7. Trace proteinuria, microscopic hematuria, pyuria, bacteriuria. 8. Alcohol intoxication with history of alcohol dependence addiction and nicotine addiction and dependence. 9. Questionable history of suicidal ideation. 10. Right temporal lobe, medial portion heterogenous enhancing mass lesion extending superiorly into inferior aspect of the right parietal lobe measuring 7 cm x 4.6 cm x 5.5 cm with the mass crossing the midline at the level of the posterior portion of the corpus callosum suggestive of malignant neoplasm such has glioblastoma multiforme with large vasogenic edema surrounding the mass, resulting in mass effect on the right lateral ventricle with 11 mm right to left midline shift, and partial effacement of the right basilar cistern with possibility of mild transtentorial and subfalcine herniation with mild enhancement of the adjacent dura along with the right tentorium with right ventricular compression by the right temporal lobe mass. 11. Left frontal and maxillary sinus mucosal thickening. 12. Deconditioning. 1. Right temporal lobe hydrogenous enhancing lesion in the medial portion extending superiorly to the inferior aspect of the right parietal lobe with mass crossing the midline at the level of the posterior portion of the corpus callosum suggestive of malignant neoplasm such as glioblastoma multiforme with large vasogenic edema surrounding the mass with mass effect on the right lateral ventricle and partial effacement of the right basilar cistern and possibility of mild transtentorial subfalcine herniation with heterogenous enhancement of the right temporal lobe mass with heterogenous enhancement of the right temporal mass and effacement of the adjacent dura including the right tentorium, right ventricular compression by the mass lesion. 2. Left lower lobe consolidation. 3. Episodic transient hypertension. 4. Transient hypoxemia. 5. Tachycardia. 6. Leukocytosis with granulocytosis, probably Decadron induced. 7. Trace proteinuria, microscopic hematuria, bacteriuria. 8. Alcohol intoxication with history of alcohol dependence, addiction and nicotine addiction dependence. 1. 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 2. Left lower lobe consolidation. 3. Questionable hypertension. 4. Tachypnea. 5. Microscopic hematuria and rare bacteriuria. 6. History of fall. 7. History of recurrent fall. 8. Alcohol intoxication and history of alcohol and nicotine dependence and history of alcohol and nicotine dependence. 9. 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 10. Alcohol use disorder. 11. Alcohol intoxication. 12. Suicidal ideation. 13. Alcohol use disorder. 14. Left lower lobe consolidation. 15. Active alcohol intoxication. 16. Questionable left lower lobe pneumonia, atelectasis and right middle lobe and left upper lobe nodule. 17. Questionable encephalopathy. 18. History of noncompliance. 19. Deconditioning. 1. Right cerebral hemisphere extensive vasogenic edema with involvement of the right temporal, posterior frontal and parietal lobe; vasogenic edema with right- sided intracranial mass with suspected large mass in the right temporal lobe with additional masses of the right temporal, right posterior frontal lobe with intracranial mass effect and midline shift to the left of 9 mm with effacement of the basilar cistern on the right, effacement and displacement of the right lateral ventricle and diffuse sulcal effacement in the right cerebral hemisphere. 2. Active alcohol intoxication. 3. Questionable encephalopathy with confusional state. 4. Questionable suicidal ideation. 5. Trace proteinuria and microscopic hematuria and trace bacteriuria. 6. Acute alcohol intoxication. 7. Questionable left lower lobe pneumonia, atelectasis with right middle lobe and left upper lobe nodule. 8. History of nicotine and alcohol dependence and addiction. 9. Alcohol dependence and addiction. 10. Gait dysfunction with history of fall. 11. Questionable encephalopathy, etiology undetermined with acute alcohol intoxication. The patient was seen by neurosurgery. The patient declined neurosurgical options. As mentioned yesterday, the patient has requested to be discharged to [facility], also known as [facility]. Patient declined to go to [place], regarding which, the patient's next of kin and power of trademark attorney was also in agreement with. The patient's medications as per MAR. The patient is to be continued on the above therapeutic interventions. The patient's current consultation oncology, palliative care, neurosurgery, neurology, psychiatry, and radiation oncology. At this time, we will await social worker health services import about referral and discharge referral and discharge to subacute rehab versus long-term placement of patient' s choice. Dictated and electronically signed, not read. Flash Harper MD cc: [id number] TT: 11/08/2016 00:02:37 Confirmation # [id number] Dictation # [id number] paul ABDUL
--- NOTE | 2016-11-09 16:46 | CP.PCM.DIS ---
Provider - Provider Date of Admission: 10/28/16 00:44 DATE OF DISCHARGE 11/08/2016. Attending physician: Flash Harper MD Time Spent in preparation of Discharge (in minutes): 45 Hospital Course - Lab Results Lab Results: Micro Results 10/28/16 02:35 Naris MRSA Culture (Admit) - Final MRSA NOT DETECTED Most Recent Lab Values WBC 13.5 10^3/ul (4.5-11.0) H 11/07/16 09:01 RBC 4.56 10^6/uL (3.5-6.1) 11/07/16 09:01 Hgb 14.7 gm/dL (14.0-18.0) 11/07/16 09:01 Hct 43.6 % (42.0-52.0) 11/07/16 09: MCV 95.6 fL (80.0-105.0) 11/07/16 09:01 MCH 32.2 pg (25.0-35.0) 11/07/16 09: MCHC 33.7 g/dl (31.0-37.0) 11/07/16 09:01 RDW 13.6 % (11.5-14.5) 11/07/16 09:01 Plt Count 195 10^3/uL (120.0-450.0) 11/07/16 09:01 MPV 11.4 fl (7.0-11.0) H 11/07/16 09:01 Gran % 90.1 % (50.0-68.0) H 11/07/16 09:01 Lymph % (Auto) 4.2 % (22.0-35.0) L 11/07/16 09:01 Bertie % (Auto) 5.4 % (1.0-6.0) 11/07/16 09:01 Eos % (Auto) 0.2 % (1.5-5.0) L 11/07/16 09:01 Baso % (Auto) 0.1 % (0.0-3.0) 11/07/16 09:01 Gran # 12.12 (1.4-6.5) H 11/07/16 09:01 Lymph # 0.6 (1.2-3.4) L 11/07/16 09:01 Bertie # 0.7 (0.1-0.6) H 11/07/16 09:01 Eos # 0.0 (0.0-0.7) 11/07/16 09:01 Baso # 0.02 K/mm3 (0.0-2.0) 11/07/16 09:01 PT 11.1 Seconds (9.9-11.8) 10/28/16 01:13 INR 1.03 (0.93-1.08) 10/28/16 01:13 APTT 27.3 Seconds (23.7-30.8) 10/28/16 01:13 Sodium 132 mmol/L (132-148) 11/07/16 09:01 Potassium 4.5 mmol/L (3.6-5.0) 11/07/16 09:01 Chloride 98 mmol/L (95-110) 11/07/16 09:01 Carbon Dioxide 27 mmol/L (21-33) 11/07/16 09:01 Anion Gap 12 (10-20) 11/07/16 09:01 BUN 25 mg/dL (7-21) H 11/07/16 09:01 Creatinine 0.6 mg/dL (0.5-1.4) 11/07/16 09:01 Est GFR ( Amer) > 60 11/07/16 09:01 Est GFR (Non-Af Amer) > 60 11/07/16 09:01 POC Glucose (mg/dL) 191 mg/dL (65-110) H 11/06/16 11:07 Random Glucose 111 mg/dL (70-110) H 11/07/16 09:01 Calcium 8.9 mg/dL (8.4-10.5) 11/07/16 09:01 Phosphorus 3.5 mg/dL (2.5-4.5) 10/30/16 06:30 Magnesium 2.3 mg/dL (1.7-2.2) H 11/07/16 09:01 Total Bilirubin 1.1 mg/dL (0.2-1.3) 11/07/16 09:01 Direct Bilirubin 0.3 mg/dL (0.0-0.4) 11/07/16 09:01 AST 21 U/L (15-59) 11/07/16 09:01 ALT 44 U/L (7-56) 11/07/16 09:01 Alkaline Phosphatase 43 U/L (38-133) 11/07/16 09:01 Total Protein 6.7 g/dL (5.8-8.3) 11/07/16 09:01 Albumin 3.6 g/dL (3.0-4.8) 11/07/16 09:01 Globulin 3.1 gm/dL 11/07/16 09:01 Albumin/Globulin Ratio 1.1 (1.1-1.8) 11/07/16 09:01 Triglycerides 50 mg/dL (35-160) 10/28/16 06:00 Cholesterol 172 mg/dL (130-200) 10/28/16 06:00 LDL Cholesterol Direct 81 mg/dL (0-129) 10/28/16 06:00 HDL Cholesterol 80 mg/dL (29-60) H 10/28/16 06:00 Prostate Specific Ag 1.3 ng/mL (0.00-2.5) 10/28/16 11:20 Vitamin B12 332 pg/mL (239-931) 10/28/16 06:00 Folate > 20.0 ng/mL 10/28/16 06:00 Free T4 0.99 ng/dL (0.78-2.19) 10/28/16 11:20 Thyroxine (T4) 5.2 ug/dL (5.5-11.0) L 10/28/16 11:20 TSH 3rd Generation 0.74 mIU/mL (0.46-4.68) 10/29/16 05:40 Urine Color Yellow (YELLOW) 10/27/16 19:29 Urine Appearance Sl cloudy (CLEAR) 10/27/16 19:29 Urine pH 6.0 (4.7-8.0) 10/27/16 19:29 Ur Specific [place] 1.010 (1.005-1.035) 10/27/16 19:29 Urine Protein Trace mg/dL (<30 mg/dL) H 10/27/16 19:29 Urine Glucose (UA) Negative mg/dL (NEGATIVE) 10/27/16 19:29 Urine Ketones Negative mg/dL (NEGATIVE) 10/27/16 19:29 Urine Blood Small (NEGATIVE) H 10/27/16 19:29 Urine Nitrate Negative (NEGATIVE) 10/27/16 19:29 Urine Bilirubin Negative (NEGATIVE) 10/27/16 19:29 Urine Urobilinogen 0.2 E.U./dL (<1 E.U./dL) 10/27/16 19:29 Ur Leukocyte Esterase Negative Juliette/uL (NEGATIVE) 10/27/16 19:29 Urine RBC 2 - 5 /hpf (0-2) 10/27/16 19:29 Urine WBC Negative /hpf (0-6) 10/27/16 19:29 Ur Epithelial Cells 0 - 2 /hpf (0-5) 10/27/16 19:29 Urine Bacteria Rare (NEG) 10/27/16 19:29 Salicylates < 1 mg/dL (2.0-20.0) L 10/27/16 19:29 Urine Opiates Screen Negative (NEGATIVE) 10/27/16 19:29 Urine Methadone Screen Negative (NEGATIVE) 10/27/16 19:29 Acetaminophen < 10.0 ug/ml (10.0-20.0) L 10/27/16 19:29 Ur Barbiturates Screen Negative (NEGATIVE) 10/27/16 19:29 Ur Phencyclidine Scrn Negative (NEGATIVE) 10/27/16 19:29 Ur Amphetamines Screen Negative (NEGATIVE) 10/27/16 19:29 U Benzodiazepines Scrn Negative (NEGATIVE) 10/27/16 19:29 U Oth Cocaine Metabols Negative (NEGATIVE) 10/27/16 19:29 U Cannabinoids Screen Negative (NEGATIVE) 10/27/16 19:29 Alcohol, Quantitative 147 mg/dL (0-10) H 10/27/16 19:29 RPR Nonreactive (NONREACTIVE) 10/28/16 11:20 HIV 1&2 Ag/Ab, 4th Gen Nonreactive (Nonreactive) 10/28/16 09:30 - Hospital Course Hospital Course: [facility] [address] [place] [address] Health Information Management History and Physical Report : [id number] Draft Patient: RUDDY HURD Unit: [id number] : 1945 Loc: 3R Room/Bed: [facility] Age/Sex: 70 / M ADM Status: DIS IN ADM Date: Copied To: Attending MD: Meredith NICOLE,Flahs Talley HISTORY OF PRESENT ILLNESS: The patient was brought to the Emergency Room in the evening hours today by [facility]. The patient was found to be intoxicated with alcohol. According to the EMS, the patient's family members stated that the patient has been drinking alcohol daily, lost job, has been experiencing suicidal ideation. The patient was seen in bed 8. The patient has heavy alcohol odor. The patient is alert, awake, responsive, confused, wants to sign out AMA, wants to leave the hospital, does not wish to stay in the hospital. The patient is alert, awake, responsive. CODE STATUS: Full code. LIVING WILL AND ADVANCED DIRECTIVE: None. ALLERGIES: None. HEIGHT: 5 feet 8 inches. BMI is 27. HOME MEDICATIONS: None. SOCIAL HISTORY: Positive for smoking. Positive for alcohol. Denies drug use Positive for alcoholism. FAMILY HISTORY: Not available. OCCUPATIONAL HISTORY: Not available. PAST MEDICAL AND SURGICAL HISTORY: History of alcohol dependence, history of gait dysfunction, history of nicotine dependence. The patient's past medical history is also significant for a recent ER visit in 08/2016 upon which in August, the patient signed out against medical advice. History of an abnormal CAT scan of the head in 08/2016 which shows a right temporal lobe mass effect on 08/01/2016, but at that time, patient signed out against medical advice. The patient was found to be alcohol intoxicated. The patient's past medical history is also significant for a right middle lobe 3 mm nodule with interstitial fibrotic changes of the lung. The patient's past medical history is also significant for a right middle lobe nodule, history of sinus tachycardia , history of noncompliance and poor compliance. The patient's past medical history is significant for history of alcohol and nicotine dependence and addiction, history of deconditioning. The patient was seen in bed #8 in the Emergency Room. PHYSICAL EXAMINATION: VITAL SIGNS: T-max 98. Pulse rate was 95-90-78. Blood pressure 129/88, 132/80 , respiration was 20. O2 sat was 100%. GENERAL: The patient is seen lying in the stretcher. The patient is awake, alert, responsive. HEAD: Normocephalic, atraumatic. HEENT: Shows pink conjunctivae, dry oral mucosa. NECK: No neck rigidity. CHEST: Symmetrical. LUNGS: Show positive rhonchi upper lung herman and bilateral posterior lung herman. CARDIOVASCULAR: Shows S1, S2, regular rhythm. ABDOMEN: Soft, positive bowel sounds. GENITALIA: Male. RECTAL: Deferred. EXTREMITIES: Shows no pitting edema, no calf tenderness, no Homans' sign. NEUROLOGIC: The patient is alert, awake, responsive, is able to move upper and lower extremity without assistance. Gait examination is not tested. VASCULAR: Palpable pulses. Cranial nerves II-XII limited. Neurologically, the patient is alert, awake, responsive, states he is in [facility]. He is able to say his name. The patient is able to move upper and lower extremities without assistance. Motor strength in upper and lower extremities appears to be 5/5. Coordination examination not tested. Gait examination not tested. PSYCHIATRIC: The patient has history of suicidal ideation. DIAGNOSTICS: CBC: WBC 6.6, hemoglobin/hematocrit 14.7 and 42.2, platelets 249. PT, PTT 11.1 and 27.3. Sodium 139, potassium 4.0, chloride 100, CO2 of 24 , anion gap 19, BUN 12, creatinine 0.8, GFR greater than 60, glucose 101, calcium 9.3, phosphorus 3.1, magnesium 2.0. LFTs are normal. Urine pH 6.0, specific gravity 1.010, trace protein, small blood, bacteria rare. Urine drug screen negative for salicylates, negative for acetaminophen, positive for alcohol level of 147. Chest x-ray was reviewed which shows left lower lobe opacity, questionable pneumonia, atelectasis, right middle lobe nodule, left upper lobe nodule. CT head was reviewed which shows right cerebral hemisphere abnormal low density large area with extensive edema involving the right temporal, posterior frontal and parietal lobes suggestive of vasogenic edema secondary to underlying right- sided intracranial mass or masses with a suspected large mass in the right temporal lobe with mass effect and effacement and displacement of the right lateral ventricle and diffuse sulcal effacement. EKG done in the Emergency Room shows sinus rhythm. The patient was seen and evaluated in the Emergency Room by the physician assistant golf course superintendent and Dr. Puri. The patient was evaluated initially by the PS worker. The patient was seen by the PS worker. The patient's case was discussed with Dr. Rebolledo, neurosurgeon. The patient was advised to be admitted to ICU. IMPRESSION: 1. Right cerebral hemisphere extensive vasogenic edema with involvement of the right temporal, posterior frontal and parietal lobe; vasogenic edema with right- sided intracranial mass with suspected large mass in the right temporal lobe with additional masses of the right temporal, right posterior frontal lobe with intracranial mass effect and midline shift to the left of 9 mm with effacement of the basilar cistern on the right, effacement and displacement of the right lateral ventricle and diffuse sulcal effacement in the right cerebral hemisphere. 2. Active alcohol intoxication. 3. Questionable encephalopathy with confusional state. 4. Questionable suicidal ideation. 5. Trace proteinuria and microscopic hematuria and trace bacteriuria. 6. Acute alcohol intoxication. 7. Questionable left lower lobe pneumonia, atelectasis with right middle lobe and left upper lobe nodule. 8. History of nicotine and alcohol dependence and addiction. 9. Alcohol dependence and addiction. 10. Gait dysfunction with history of fall. 11. Questionable encephalopathy, etiology undetermined with acute alcohol intoxication. PLAN: At this time, the patient was seen in the Emergency Room. The patient was also consulted by the ER physician with neurosurgery, Dr. Rebolledo. His recommendation to start IV Decadron. The patient is to be admitted to intensive care unit with neurosurgical consultation. The patient has been ordered serial labs. Thyroid panel, B12, folate, lipid panel, HIV have been ordered. The patient is consulted with neurosurgery, neurology and psychiatry. The patient is started on Xopenex and Mucomyst nebulizer treatment, Ativan 2 mg IV q. 2 p.r.n. The patient is started on banana bag. The patient is started on Decadron 6 mg IV q. 6, folic acid 1 mg daily, DVT prophylaxis with heparin 5000 subQ q. 12. Keppra 500 IV q. 12 has been ordered. The patient is started on Protonix 40 IV daily, thiamine 100 mg IV daily. The patient has been ordered an MRI of the brain after consulting with neurosurgery. In addition, CAT scan of the chest, abdomen and pelvis has been ordered for evaluation of the pulmonary nodule, pneumonia, atelectasis. The patient has been ordered a CAT scan of the chest, abdomen and pelvis for evaluation of possible metastatic disease. The patient is on 1:1. Alcohol withdrawal protocol has been ordered. Head of the bed 30 degrees. Neuro checks have been ordered. At present, patient is to be admitted to intensive care unit. The patient was seen in the Emergency Room. Time spent in the entire management and evaluation of the patient and reviewing the entire diagnostic data more than 1 hour 55 minutes. Dictated and electronically signed, not read. Flash Harper MD cc: [id number] TT: 10/28/2016 01:03:57 tn Dictated By: Flash Harper MD Transcribed Date and Time: 10/28/16 1203 Transcribed By: LUCY Signed By: Date & Time Signed: Co-Signed By: Date & Time Signed: Discharge Exam - Head Exam Head Exam: ATRAUMATIC, NORMOCEPHALIC - Additional Findings Additional findings: [email or web address] [address] Health Information Management Progress Note : [id number] Draft Patient: RUDDY HURD Unit: [id number] : 1945 Loc: [facility] Room/Bed: [facility] Age/Sex: 70 / M ADM Status: DIS IN ADM Date: DIS Date:11/08/16 Copied To: Attending MD: Flash Harper MD DATE: 11/08/2016 The patient is seen in room 372, bed 1. The patient is seen out of bed to chair. The patient is alert, awake, responsive, does not appear to be in any distress. Overnight nurse's notes were reviewed. PHYSICAL EXAMINATION: VITAL SIGNS: T-max afebrile, heart rate 66, blood pressure 147/83, respirations 20, O2 sat 98%. HEAD: Normocephalic, atraumatic. HEENT: Shows pink conjunctivae, anicteric sclerae. No oropharyngeal lesion. NECK: No neck rigidity. CHEST: Kyphosis. LUNGS: Shows occasional rhonchi upper lung herman. GAIT: The patient is independent ambulating in the room. The patient does have some residual upper extremity tremors, but much improved since admission and over the past preceding days. CARDIOVASCULAR: Shows S1, S2, regular rhythm. ABDOMEN: Soft, positive bowel sounds. GENITALIA: Male. RECTAL: Deferred. EXTREMITIES: Shows no pitting edema, no calf tenderness, no Homans' sign. NEUROLOGIC: The patient is alert, awake, responsive, is able to answer all the questions appropriately. ABDOMEN: Soft. Positive bowel sounds. GENITALIA: Male. RECTAL: Deferred. EXTREMITIES: Shows no pitting edema, no calf tenderness, no Tung's signs. NEUROLOGIC: The patient is alert, awake, responsive, able to ambulate without assistance. Decreasing tremors of the upper extremity. The patient is aware of his medical diagnosis, which has been explained to him on multiple occasions in addition to the patient's next of kin, Alecia. DIAGNOSTICS: None from today. Yesterday's diagnostics were reviewed and therapeutic intervention done if needed. IMPRESSION AND PLAN: 1. Right-sided brain mass suspicious for glioblastoma multiforme of the brain. 2. Resolving left lower lobe pneumonia. 3. Upper extremity tremors versus intentional tremors versus questionable etiology. 4. Hypertension. 5. Transient tachypnea. 6. History of nicotine and alcohol addiction and dependence. 7. Transient hypoxemia. 8. Leukocytosis with granulocytosis. 9. Possible systemic inflammatory response syndrome. 10. Mild prerenal kidney injury. 11. Gait dysfunction. 12. Deconditioning 13. Trace proteinuria, rare bacteriuria and microscopic hematuria. 14. Alcohol intoxication on admission. 15. Hypertension. 16. Constipation. 17. Nicotine dependence and addiction. 1. Right-sided brain mass suspicious for glioblastoma multiforme of the brain. 2. Resolving left lower lobe pneumonia. 3. Hypertension. 4. Steroid-induced leukocytosis. 5. Granulocytosis. 6. Mild prerenal kidney injury, probably secondary to Decadron. 7. Trace proteinuria, microscopic hematuria, rare bacteriuria. 8. Left lower lobe consolidation (resolved). 1. Suspicious right-sided brain mass suspicious for glioblastoma multiforme of the brain. 2. Resolving left lower lobe pneumonia. 3. Hypertension. 4. Upper extremity tremors, etiology undetermined. 5. History of alcohol and nicotine dependence. 6. History of suicidal ideation. 7. Gait dysfunction and deconditioning. 8. History of gait dysfunction and recurrent falls. 9. Possible alcohol withdrawal. 1. Suspicious right-sided glioblastoma multiforme of the brain. 2. Resolving left lower lobe pneumonia consolidation. 3. Questionable and possible hypertension. 4. History of suicidal ideation. 5. Alcohol and nicotine dependence and alcohol intoxication. 6. History of alcohol abuse. 7. Gait dysfunction status post fall. 8. Suicidal ideation. 9. Possible sundowning syndrome. 10. History of alcohol disorder. 11. Possible alcohol withdrawal. 1. Suspicious right-sided glioblastoma multiforme of the brain. 2. Resolving left lower lobe pneumonia consolidation. 3. Questionable hypertension. 4. Improving left lower lobe consolidation and pneumonia. 5. Right upper lobe, right middle lung, stable nodules. 6. Right lower lobe atelectasis. 7. Chronic obstructive pulmonary disease with peribronchial thickening. 8. Right lower lobe discoid atelectasis. 9. Hypertension. 10. Steroid-induce leukocytosis and granulocytosis. 11. Steroid-induced hyperglycemia. 12. Trace proteinuria, rare bacteriuria, microscopic hematuria. 13. History of alcohol dependence. 1. Right temporal lobe heterogenous enhancing lesion in the medial portion, extending superiorly into the inferior aspect of the right parietal lobe with mass crossing the midline at the level of the posterior portions of the corpus callosum suggestive of malignant neoplasm. Suggest glioblastoma multiforme with large vasogenic edema surrounding the mass, with mass effect on the right lateral ventricle and partial effacement of the right basilar cistern, and possibility of mild transtentorial subfalcine herniation with heterogenous effacement of the right parietal lobe, parietal lobe mass with heterogenous enhancement of the right temporal mass, and effacement of the adjacent dura including the right tentorium, right ventricular compression by the mass lesion. 2. Questionable hypertension, transient. 3. Leukocytosis with granulocytosis probably Decadron-induced. 4. Trace proteinuria, microscopic hematuria, rare bacteriuria. 5. History of alcohol and nicotine dependence. 6. Acute alcohol intoxication on admission. 7. Deconditioning. 8. Gait dysfunction. 9. Encephalopathy. 10. Most likely right temporoparietal lobe glioblastoma multiforme. 1. Right temporal lobe heterogenous enhancing lesion in the medial portion extending superiorly into the inferior aspect of the right parietal lobe with mass crossing the midline at the level of the posterior portion of the corpus callosum suggestive of malignant neoplasm such as glioblastoma multiforme with large vasogenic edema surrounding the mass with mass effect on the right lateral ventricle and partial effacement of the right basilar cistern and possibility of mild transtentorial subfalcine herniation with heterogenous effacement of the right parietal lobe mass with heterogenous enhancement of the right temporal mass and effacement of the adjacent dura including the right tentorium, right ventricular compression by the mass lesion. 2. Left lower lobe consolidation. 3. Possible hypertension. 4. Transient hypoxemia. 5. Tachycardia. 6. Leukocytosis with granulocytosis, probably Decadron-induced. 7. Trace proteinuria, microscopic hematuria, pyuria, bacteriuria. 8. Alcohol intoxication with history of alcohol dependence addiction and nicotine addiction and dependence. 9. Questionable history of suicidal ideation. 10. Right temporal lobe, medial portion heterogenous enhancing mass lesion extending superiorly into inferior aspect of the right parietal lobe measuring 7 cm x 4.6 cm x 5.5 cm with the mass crossing the midline at the level of the posterior portion of the corpus callosum suggestive of malignant neoplasm such has glioblastoma multiforme with large vasogenic edema surrounding the mass, resulting in mass effect on the right lateral ventricle with 11 mm right to left midline shift, and partial effacement of the right basilar cistern with possibility of mild transtentorial and subfalcine herniation with mild enhancement of the adjacent dura along with the right tentorium with right ventricular compression by the right temporal lobe mass. 11. Left frontal and maxillary sinus mucosal thickening. 12. Deconditioning. 1. Right temporal lobe hydrogenous enhancing lesion in the medial portion extending superiorly to the inferior aspect of the right parietal lobe with mass crossing the midline at the level of the posterior portion of the corpus callosum suggestive of malignant neoplasm such as glioblastoma multiforme with large vasogenic edema surrounding the mass with mass effect on the right lateral ventricle and partial effacement of the right basilar cistern and possibility of mild transtentorial subfalcine herniation with heterogenous enhancement of the right temporal lobe mass with heterogenous enhancement of the right temporal mass and effacement of the adjacent dura including the right tentorium, right ventricular compression by the mass lesion. 2. Left lower lobe consolidation. 3. Episodic transient hypertension. 4. Transient hypoxemia. 5. Tachycardia. 6. Leukocytosis with granulocytosis, probably Decadron induced. 7. Trace proteinuria, microscopic hematuria, bacteriuria. 8. Alcohol intoxication with history of alcohol dependence, addiction and nicotine addiction dependence. 1. 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 2. Left lower lobe consolidation. 3. Questionable hypertension. 4. Tachypnea. 5. Microscopic hematuria and rare bacteriuria. 6. History of fall. 7. History of recurrent fall. 8. Alcohol intoxication and history of alcohol and nicotine dependence and history of alcohol and nicotine dependence. 9. 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 10. Alcohol use disorder. 11. Alcohol intoxication. 12. Suicidal ideation. 13. Alcohol use disorder. 14. Left lower lobe consolidation. 15. Active alcohol intoxication. 16. Questionable left lower lobe pneumonia, atelectasis and right middle lobe and left upper lobe nodule. 17. Questionable encephalopathy. 18. History of noncompliance. 19. Deconditioning. 1. Right cerebral hemisphere extensive vasogenic edema with involvement of the right temporal, posterior frontal and parietal lobe; vasogenic edema with right- sided intracranial mass with suspected large mass in the right temporal lobe with additional masses of the right temporal, right posterior frontal lobe with intracranial mass effect and midline shift to the left of 9 mm with effacement of the basilar cistern on the right, effacement and displacement of the right lateral ventricle and diffuse sulcal effacement in the right cerebral hemisphere. 2. Active alcohol intoxication. 3. Questionable encephalopathy with confusional state. 4. Questionable suicidal ideation. 5. Trace proteinuria and microscopic hematuria and trace bacteriuria. 6. Acute alcohol intoxication. 7. Questionable left lower lobe pneumonia, atelectasis with right middle lobe and left upper lobe nodule. 8. History of nicotine and alcohol dependence and addiction. 9. Alcohol dependence and addiction. 10. Gait dysfunction with history of fall. 11. Questionable encephalopathy, etiology undetermined with acute alcohol intoxication. 1. Right-sided brain mass suspicious for glioblastoma multiforme. 2. Left lower lobe pneumonia consolidation. 3. Hypertension. 4. Steroid-induced leukocytosis. 5. Upper extremity tremors, questionable essential tremors versus intention tremors. 6. Granulocytosis. 7. Mild prerenal kidney injury, probably secondary to Decadron. 8. Trace proteinuria, microscopic hematuria, pyuria, bacteriuria. 9. Left lower lobe consolidation. 10. Hypertension. 11. Leukocytosis with granulocytosis. 12. Mild prerenal kidney injury. 13. Steroid-induced hyperglycemia. 1. Right-sided brain mass suspicious for glioblastoma multiforme of the brain. 2. Resolving left lower lobe pneumonia. 3. Hypertension. 4. Steroid-induced leukocytosis. 5. Granulocytosis. 6. Mild prerenal kidney injury, probably secondary to Decadron. 7. Trace proteinuria, microscopic hematuria, rare bacteriuria. 8. Left lower lobe consolidation (resolved). 1. Suspicious right-sided brain mass suspicious for glioblastoma multiforme of the brain. 2. Resolving left lower lobe pneumonia. 3. Hypertension. 4. Upper extremity tremors, etiology undetermined. 5. History of alcohol and nicotine dependence. 6. History of suicidal ideation. 7. Gait dysfunction and deconditioning. 8. History of gait dysfunction and recurrent falls. 9. Possible alcohol withdrawal. 1. Suspicious right-sided glioblastoma multiforme of the brain. 2. Resolving left lower lobe pneumonia consolidation. 3. Questionable and possible hypertension. 4. History of suicidal ideation. 5. Alcohol and nicotine dependence and alcohol intoxication. 6. History of alcohol abuse. 7. Gait dysfunction status post fall. 8. Suicidal ideation. 9. Possible sundowning syndrome. 10. History of alcohol disorder. 11. Possible alcohol withdrawal. 1. Suspicious right-sided glioblastoma multiforme of the brain. 2. Resolving left lower lobe pneumonia consolidation. 3. Questionable hypertension. 4. Improving left lower lobe consolidation and pneumonia. 5. Right upper lobe, right middle lung, stable nodules. 6. Right lower lobe atelectasis. 7. Chronic obstructive pulmonary disease with peribronchial thickening. 8. Right lower lobe discoid atelectasis. 9. Hypertension. 10. Steroid-induce leukocytosis and granulocytosis. 11. Steroid-induced hyperglycemia. 12. Trace proteinuria, rare bacteriuria, microscopic hematuria. 13. History of alcohol dependence. 1. Right temporal lobe heterogenous enhancing lesion in the medial portion, extending superiorly into the inferior aspect of the right parietal lobe with mass crossing the midline at the level of the posterior portions of the corpus callosum suggestive of malignant neoplasm. Suggest glioblastoma multiforme with large vasogenic edema surrounding the mass, with mass effect on the right lateral ventricle and partial effacement of the right basilar cistern, and possibility of mild transtentorial subfalcine herniation with heterogenous effacement of the right parietal lobe, parietal lobe mass with heterogenous enhancement of the right temporal mass, and effacement of the adjacent dura including the right tentorium, right ventricular compression by the mass lesion. 2. Questionable hypertension, transient. 3. Leukocytosis with granulocytosis probably Decadron-induced. 4. Trace proteinuria, microscopic hematuria, rare bacteriuria. 5. History of alcohol and nicotine dependence. 6. Acute alcohol intoxication on admission. 7. Deconditioning. 8. Gait dysfunction. 9. Encephalopathy. 10. Most likely right temporoparietal lobe glioblastoma multiforme. 1. Right temporal lobe heterogenous enhancing lesion in the medial portion extending superiorly into the inferior aspect of the right parietal lobe with mass crossing the midline at the level of the posterior portion of the corpus callosum suggestive of malignant neoplasm such as glioblastoma multiforme with large vasogenic edema surrounding the mass with mass effect on the right lateral ventricle and partial effacement of the right basilar cistern and possibility of mild transtentorial subfalcine herniation with heterogenous effacement of the right parietal lobe mass with heterogenous enhancement of the right temporal mass and effacement of the adjacent dura including the right tentorium, right ventricular compression by the mass lesion. 2. Left lower lobe consolidation. 3. Possible hypertension. 4. Transient hypoxemia. 5. Tachycardia. 6. Leukocytosis with granulocytosis, probably Decadron-induced. 7. Trace proteinuria, microscopic hematuria, pyuria, bacteriuria. 8. Alcohol intoxication with history of alcohol dependence addiction and nicotine addiction and dependence. 9. Questionable history of suicidal ideation. 10. Right temporal lobe, medial portion heterogenous enhancing mass lesion extending superiorly into inferior aspect of the right parietal lobe measuring 7 cm x 4.6 cm x 5.5 cm with the mass crossing the midline at the level of the posterior portion of the corpus callosum suggestive of malignant neoplasm such has glioblastoma multiforme with large vasogenic edema surrounding the mass, resulting in mass effect on the right lateral ventricle with 11 mm right to left midline shift, and partial effacement of the right basilar cistern with possibility of mild transtentorial and subfalcine herniation with mild enhancement of the adjacent dura along with the right tentorium with right ventricular compression by the right temporal lobe mass. 11. Left frontal and maxillary sinus mucosal thickening. 12. Deconditioning. 1. Right temporal lobe hydrogenous enhancing lesion in the medial portion extending superiorly to the inferior aspect of the right parietal lobe with mass crossing the midline at the level of the posterior portion of the corpus callosum suggestive of malignant neoplasm such as glioblastoma multiforme with large vasogenic edema surrounding the mass with mass effect on the right lateral ventricle and partial effacement of the right basilar cistern and possibility of mild transtentorial subfalcine herniation with heterogenous enhancement of the right temporal lobe mass with heterogenous enhancement of the right temporal mass and effacement of the adjacent dura including the right tentorium, right ventricular compression by the mass lesion. 2. Left lower lobe consolidation. 3. Episodic transient hypertension. 4. Transient hypoxemia. 5. Tachycardia. 6. Leukocytosis with granulocytosis, probably Decadron induced. 7. Trace proteinuria, microscopic hematuria, bacteriuria. 8. Alcohol intoxication with history of alcohol dependence, addiction and nicotine addiction dependence. 1. 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 2. Left lower lobe consolidation. 3. Questionable hypertension. 4. Tachypnea. 5. Microscopic hematuria and rare bacteriuria. 6. History of fall. 7. History of recurrent fall. 8. Alcohol intoxication and history of alcohol and nicotine dependence and history of alcohol and nicotine dependence. 9. 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 10. Alcohol use disorder. 11. Alcohol intoxication. 12. Suicidal ideation. 13. Alcohol use disorder. 14. Left lower lobe consolidation. 15. Active alcohol intoxication. 16. Questionable left lower lobe pneumonia, atelectasis and right middle lobe and left upper lobe nodule. 17. Questionable encephalopathy. 18. History of noncompliance. 19. Deconditioning. 1. Right cerebral hemisphere extensive vasogenic edema with involvement of the right temporal, posterior frontal and parietal lobe; vasogenic edema with right- sided intracranial mass with suspected large mass in the right temporal lobe with additional masses of the right temporal, right posterior frontal lobe with intracranial mass effect and midline shift to the left of 9 mm with effacement of the basilar cistern on the right, effacement and displacement of the right lateral ventricle and diffuse sulcal effacement in the right cerebral hemisphere. 2. Active alcohol intoxication. 3. Questionable encephalopathy with confusional state. 4. Questionable suicidal ideation. 5. Trace proteinuria and microscopic hematuria and trace bacteriuria. 6. Acute alcohol intoxication. 7. Questionable left lower lobe pneumonia, atelectasis with right middle lobe and left upper lobe nodule. 8. History of nicotine and alcohol dependence and addiction. 9. Alcohol dependence and addiction. 10. Gait dysfunction with history of fall. 11. Questionable encephalopathy, etiology undetermined with acute alcohol intoxication. PLAN: At this time, patient is awaiting discharge disposition to the [facility] [place] [facility] the patient and the power of feed mill tender choice. The patient and the power of feed mill tender has requested their choice at [facility]. I have advised them to contact the director of social services regarding discharge planning. CURRENT DISCHARGE MEDICATIONS: 1. The patient is on Mucomyst and Xopenex nebulizer every 6 hours. 2. Cozaar 50 mg daily. 3. Decadron 4 mg every 6 hours for 3 days, then to be decreased accordingly. 4. Keppra 500 twice a day. 5. The patient is on Klonopin 0.25 twice a day. 6. Lopressor 25 mg twice a day. 7. MiraLax 17 g twice a day. 8. Protonix 40 mg daily. 9. Xopenex and Mucomyst nebulizer every 6 hours. 10. Decadron will be tapered down, which will be 4 mg every 6 hours for 3 days , then 4 mg of Decadron daily for 3 days, then 2 mg daily for 3 days, to be stopped. 11. Keppra to be continued 500 mg twice a day for at least 4 weeks depending upon patient's clinical condition. At present, patient and the patient's power of feed mill tender has declined neurosurgical interventions. The patient and the patient's power of feed mill tender are aware of risks, consequences of declining treatment. The patient and the patient's power of feed mill tender are also aware of patient's diagnosis of brain malignancy. Dictated and electronically signed, not read. Flash Harper MD cc: [id number] TT: 11/08/2016 12:42:32 Confirmation # [id number] Dictation # [id number] en Dictated By: Flash Harper MD Transcribed Date and Time: 11/08/16 1242 Transcribed By: LUCY Signed By: Date & Time Signed: Co-Signed By: Date & Time Signed: Discharge Plan - Follow Up Plan Condition: GUARDED Disposition: TRANSF TO SNF Instructions: Alcohol Withdrawal (DC), Alcohol Withdrawal (GEN) Additional Instructions: DISCHARGE TO [facility] UNDER SERVICE. DISCHARGE MEDS PER SEP. Referrals: Flash Harper MD [Staff Provider] - 1 Week (DISCHARGE TO [facility] UNDER SERVICE DISCHARGE MEDS PER SEP )
--- NOTE | 2016-12-02 16:08 | PN ---
DATE: 11/05/2016 The patient is seen in room 372, bed 1. VITAL SIGNS: T-max 98.5-98.6, heart rate 64-84-76. Blood pressure in the last 24 hours 128/89, 160/76, 139/72, 135/81, 138/71. Respirations 20, O2 sat is 99% -96%. The patient's nurses' notes were reviewed. The patient was seen by the neurosurgeon and the neurosurgeon also spoke to the patient's power for civil attorney Alecia. The patient was found to be disoriented to time. The patient ambulated. PHYSICAL EXAMINATION: HEAD: Normocephalic, atraumatic. HEENT: Shows pink conjunctivae, anicteric sclerae. No oropharyngeal lesion. NECK: No neck rigidity. CHEST: Kyphosis, positive occasional rhonchi upper lung herman. No rales, crackles, or wheezing. CARDIOVASCULAR: Shows S1, S2. ABDOMEN: Soft, positive bowel sounds, nontender. No guarding, no rigidity, no rebound tenderness. No costovertebral angle tenderness. GENITALIA: Male. RECTAL: Deferred. EXTREMITIES: Lower extremities show no pitting edema, no calf tenderness, no Homans' sign, no clubbing, no cyanosis. There were positive, decreased tremors of the upper extremity. NEUROLOGIC: The patient is alert, awake, responsive, oriented x 2. Cranial nerves II-XII grossly intact. GAIT: The patient is ambulating. MUSCULOSKELETAL: Body mass index is 27. DIAGNOSTICS: From 11/05, WBC 13.4, hemoglobin/hematocrit 16.1 and 46.1, platelet 253. Granulocytosis 89% segs. Sodium 134, potassium 4.5, chloride 101 , CO2 22, anion gap 16, BUN 32, creatinine 0.7, GFR greater than 60, glucose 130 , magnesium 2.4. LFTs are normal. MRSA, none detected. The patient's repeat chest x-ray from 11/04 shows resolution of the pneumonia. The patient and the patient's next of kin declined neurosurgical intervention. IMPRESSION AND PLAN: 1. Right-sided brain mass suspicious for glioblastoma multiforme of the brain. 2. Resolved left lower lobe pneumonia. 3. Hypertension. 4. Encephalopathy with episodic confusion and disorientation. 5. Hypertension. 6. Leukocytosis with granulocytosis. 7. Mild prerenal kidney injury. 8. Steroid-induced hyperglycemia. 9. Trace proteinuria, microscopic hematuria, rare bacteriuria. 10. Alcohol addiction and dependence. 11. History of noncompliance and poor compliance. 12. History of gait dysfunction and recurrent fall. 13. History of nicotine and alcohol addiction and dependence. 1. Suspicious right-sided brain mass suspicious for glioblastoma multiforme of the brain. 2. Resolving left lower lobe pneumonia. 3. Hypertension. 4. Upper extremity tremors, etiology undetermined. 5. History of alcohol and nicotine dependence. 6. History of suicidal ideation. 7. Gait dysfunction and deconditioning. 8. History of gait dysfunction and recurrent falls. 9. Possible alcohol withdrawal. 1. Suspicious right-sided glioblastoma multiforme of the brain. 2. Resolving left lower lobe pneumonia consolidation. 3. Questionable and possible hypertension. 4. History of suicidal ideation. 5. Alcohol and nicotine dependence and alcohol intoxication. 6. History of alcohol abuse. 7. Gait dysfunction status post fall. 8. Suicidal ideation. 9. Possible sundowning syndrome. 10. History of alcohol disorder. 11. Possible alcohol withdrawal. 1. Suspicious right-sided glioblastoma multiforme of the brain. 2. Resolving left lower lobe pneumonia consolidation. 3. Questionable hypertension. 4. Improving left lower lobe consolidation and pneumonia. 5. Right upper lobe, right middle lung, stable nodules. 6. Right lower lobe atelectasis. 7. Chronic obstructive pulmonary disease with peribronchial thickening. 8. Right lower lobe discoid atelectasis. 9. Hypertension. 10. Steroid-induce leukocytosis and granulocytosis. 11. Steroid-induced hyperglycemia. 12. Trace proteinuria, rare bacteriuria, microscopic hematuria. 13. History of alcohol dependence. 1. Right temporal lobe heterogenous enhancing lesion in the medial portion, extending superiorly into the inferior aspect of the right parietal lobe with mass crossing the midline at the level of the posterior portions of the corpus callosum suggestive of malignant neoplasm. Suggest glioblastoma multiforme with large vasogenic edema surrounding the mass, with mass effect on the right lateral ventricle and partial effacement of the right basilar cistern, and possibility of mild transtentorial subfalcine herniation with heterogenous effacement of the right parietal lobe, parietal lobe mass with heterogenous enhancement of the right temporal mass, and effacement of the adjacent dura including the right tentorium, right ventricular compression by the mass lesion. 2. Questionable hypertension, transient. 3. Leukocytosis with granulocytosis probably Decadron-induced. 4. Trace proteinuria, microscopic hematuria, rare bacteriuria. 5. History of alcohol and nicotine dependence. 6. Acute alcohol intoxication on admission. 7. Deconditioning. 8. Gait dysfunction. 9. Encephalopathy. 10. Most likely right temporoparietal lobe glioblastoma multiforme. 1. Right temporal lobe heterogenous enhancing lesion in the medial portion extending superiorly into the inferior aspect of the right parietal lobe with mass crossing the midline at the level of the posterior portion of the corpus callosum suggestive of malignant neoplasm such as glioblastoma multiforme with large vasogenic edema surrounding the mass with mass effect on the right lateral ventricle and partial effacement of the right basilar cistern and possibility of mild transtentorial subfalcine herniation with heterogenous effacement of the right parietal lobe mass with heterogenous enhancement of the right temporal mass and effacement of the adjacent dura including the right tentorium, right ventricular compression by the mass lesion. 2. Left lower lobe consolidation. 3. Possible hypertension. 4. Transient hypoxemia. 5. Tachycardia. 6. Leukocytosis with granulocytosis, probably Decadron-induced. 7. Trace proteinuria, microscopic hematuria, pyuria, bacteriuria. 8. Alcohol intoxication with history of alcohol dependence addiction and nicotine addiction and dependence. 9. Questionable history of suicidal ideation. 10. Right temporal lobe, medial portion heterogenous enhancing mass lesion extending superiorly into inferior aspect of the right parietal lobe measuring 7 cm x 4.6 cm x 5.5 cm with the mass crossing the midline at the level of the posterior portion of the corpus callosum suggestive of malignant neoplasm such has glioblastoma multiforme with large vasogenic edema surrounding the mass, resulting in mass effect on the right lateral ventricle with 11 mm right to left midline shift, and partial effacement of the right basilar cistern with possibility of mild transtentorial and subfalcine herniation with mild enhancement of the adjacent dura along with the right tentorium with right ventricular compression by the right temporal lobe mass. 11. Left frontal and maxillary sinus mucosal thickening. 12. Deconditioning. 1. Right temporal lobe hydrogenous enhancing lesion in the medial portion extending superiorly to the inferior aspect of the right parietal lobe with mass crossing the midline at the level of the posterior portion of the corpus callosum suggestive of malignant neoplasm such as glioblastoma multiforme with large vasogenic edema surrounding the mass with mass effect on the right lateral ventricle and partial effacement of the right basilar cistern and possibility of mild transtentorial subfalcine herniation with heterogenous enhancement of the right temporal lobe mass with heterogenous enhancement of the right temporal mass and effacement of the adjacent dura including the right tentorium, right ventricular compression by the mass lesion. 2. Left lower lobe consolidation. 3. Episodic transient hypertension. 4. Transient hypoxemia. 5. Tachycardia. 6. Leukocytosis with granulocytosis, probably Decadron induced. 7. Trace proteinuria, microscopic hematuria, bacteriuria. 8. Alcohol intoxication with history of alcohol dependence, addiction and nicotine addiction dependence. 1. 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 2. Left lower lobe consolidation. 3. Questionable hypertension. 4. Tachypnea. 5. Microscopic hematuria and rare bacteriuria. 6. History of fall. 7. History of recurrent fall. 8. Alcohol intoxication and history of alcohol and nicotine dependence and history of alcohol and nicotine dependence. 9. 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 10. Alcohol use disorder. 11. Alcohol intoxication. 12. Suicidal ideation. 13. Alcohol use disorder. 14. Left lower lobe consolidation. 15. Active alcohol intoxication. 16. Questionable left lower lobe pneumonia, atelectasis and right middle lobe and left upper lobe nodule. 17. Questionable encephalopathy. 18. History of noncompliance. 19. Deconditioning. 1. Right cerebral hemisphere extensive vasogenic edema with involvement of the right temporal, posterior frontal and parietal lobe; vasogenic edema with right- sided intracranial mass with suspected large mass in the right temporal lobe with additional masses of the right temporal, right posterior frontal lobe with intracranial mass effect and midline shift to the left of 9 mm with effacement of the basilar cistern on the right, effacement and displacement of the right lateral ventricle and diffuse sulcal effacement in the right cerebral hemisphere. 2. Active alcohol intoxication. 3. Questionable encephalopathy with confusional state. 4. Questionable suicidal ideation. 5. Trace proteinuria and microscopic hematuria and trace bacteriuria. 6. Acute alcohol intoxication. 7. Questionable left lower lobe pneumonia, atelectasis with right middle lobe and left upper lobe nodule. 8. History of nicotine and alcohol dependence and addiction. 9. Alcohol dependence and addiction. 10. Gait dysfunction with history of fall. 11. Questionable encephalopathy, etiology undetermined with acute alcohol intoxication. Dictated and electronically signed, not read. Flash Harper MD cc: [id number] TT: 11/05/2016 16:07:16 Confirmation # [id number] Dictation # [id number] en MTDD
== END 2016-11-08 18:38 | DRG 54 ==
LOC: ED 18:49 → ERH 10-28 00:44 → CCU 10-28 02:01 → 3RSO 10-29 15:26
PROVIDERS: ADMIT Internal Medicine; ATTEND Internal Medicine
DX: C71.8 Malignant neoplasm of overlapping sites of brain (principal); G93.6 Cerebral edema; J18.9 Pneumonia, unspecified organism; G93.40 Encephalopathy, unspecified; J44.0 Chronic obstructive pulmonary disease with (acute) lower respiratory infection; J98.11 Atelectasis; R31.29 Other microscopic hematuria; G51.0 Bell's palsy; R26.89 Other abnormalities of gait and mobility; I10 Essential (primary) hypertension; R09.02 Hypoxemia; F10.229 Alcohol dependence with intoxication, unspecified; R91.8 Other nonspecific abnormal finding of lung field; R73.9 Hyperglycemia, unspecified; T38.0X5A Adverse effect of glucocorticoids and synthetic analogues, initial encounter; Z66 Do not resuscitate; Y90.6 Blood alcohol level of 120-199 mg/100 ml; Z91.19 Patient's noncompliance with other medical treatment and regimen; Z87.891 Personal history of nicotine dependence